=== PATIENT | female | born 1955 | race Caucasian/White ===

== ENCOUNTER 2020-06-12 14:52 | Outpatient (RCR) | payer SELFPAY ==
--- NOTE | 2020-06-18 10:45 | PCCPR ---
Addendum entered by Vaishali Salas RN 06/25/20 15:14: Message left inquiring when she may be returning or if she needs to be placed on a longer hold. Requested she give us a call and update of her progress. Original Note: Mary left message this morning stating that she fell at home over the weekend and possibly fractured her tailbone. She is trying to get in to see her physician for a diagnosis but will be out until further notice.
--- NOTE | 2020-09-13 13:03 | PCCPR ---
Message left for Mary inquiring on her progress and update us on her plan for return.
--- NOTE | 2020-10-10 18:04 | PCCPR ---
Spoke with Mary who states that her tailbone is much better, her shoulder is still sore. She is more worried about getting in here with the weather and the use of her walker. She also stated that she got her first COVID vaccine and gets the second one mid October. She stated she would like to wait until Mid/end October to start. Will continue to follow and asked her to update us with any changes.
--- NOTE | 2020-11-14 15:48 | PCCPR ---
Spoke with Miley today, she was waiting for warmer weather and the covid vaccine to return. Miley stated that she will have the second covid vaccine next week and then would like to wait two weeks after that before she returns. Miley plans to return December 10 and will call the week before for a class time.
--- NOTE | 2021-01-31 10:42 | PCCPR ---
GEORGE diaz for Miley confirming her plan to attend the 1630 class today. On several month CARLOS.
--- NOTE | 2021-02-04 18:24 | PCCPR ---
Addendum entered by Lurdes Bhatti RN 02/08/21 10:01: LM on Mary's VM we are discharging her due to inability to reach her. several previous messages left. Addendum entered by Leann Cannon 02/06/21 17:14: Pt LMOR after hours from Melissa's call- I attempted to call her back and LM. Will continue with plan to DC at the end of the week. Original Note: Mary was supposed to return on 01/31 but did not. Called her today and left message to return our call. Mary's chart has been active for months and she has delayed the program several times for different reasons. Message left notifying her that she will be discharged by the end of the week if she does not return.
== END 2020-06-12 23:59 | disposition home or self-care (01) ==
LOC: ANHCPREHAB 14:52
PROVIDERS: PCP Internal Medicine; Visit Provider Internal Medicine Cardiovascular Disease
DX: I50.9 Heart failure, unspecified (principal)
CPT/HCPCS: 99199

== ENCOUNTER 2022-07-01 15:37 | Outpatient (CLI) | payer MEDICARE, SELFPAY ==
[2022-07-02 08:42] LABS: Kit Draw Collected
== END 2022-07-01 15:38 | disposition home or self-care (01) ==
PROVIDERS: PCP Internal Medicine; Visit Provider Internal Medicine
DX: D64.9 Anemia, unspecified (principal); E11.9 Type 2 diabetes mellitus without complications; Z53.8 Procedure and treatment not carried out for other reasons
CPT/HCPCS: 99199; 36415

== ENCOUNTER 2024-03-22 14:35 | Outpatient (CLI) | payer MEDICARE, SELFPAY ==
[2024-03-22 15:50] LABS: Basophils Percent Auto 0.4 % (0.2-1.2); Eosinophils Absolute Auto 0.2 K/mm3 (0-0.3); Eosinophils Percent Auto 1.9 % (0-4.4); Hemoglobin 9.8 g/dL (12.0-15.0); Immature Granulocyte Absolute 0.04 K/mm3 (0.00-0.031); Immature Granulocyte Percent A 0.5 % (0-0.5); Lymphocytes Absolute Auto 0.82 K/mm3 (0.9-3.2); Lymphocytes Percent Auto 10.6 % (18.3-44.2); Mean Corpuscular HGB Conc 28.8 g/dl (32-36); Mean Corpuscular Hemoglobin 24.2 pg (26-34); Mean Platelet Volume 10.5 fl (7.4-10.4); Monocytes Absolute Auto 1.1 K/mm3 (0.1-0.6); Monocytes Percent Auto 13.7 % (2.6-8.5); Neutrophils Absolute Auto 5.6 K/mm3 (1.3-6.7); Neutrophils Percent Auto 72.9 % (45.5-73.1); Platelet Count Result 242 k/mm3 (150-375); Red Blood Count 4.05 M/mm3 (4.2-5.4); Red Cell Distribution Width 17.1 % (11.5-14.5); White Blood Count 7.7 K/mm3 (4.5-10.0)
[2024-03-22 16:14] LABS: Anisocytosis 1+; Hypochromasia 1+; Ovalocytes 1+; Platelet Estimate Adequate (Adequate); Poikilocytosis 1+; Schistocytes None Seen; Target Cells 1+
[2024-03-22 16:22] LABS: Alanine Aminotransferase 11 U/L (6-35); Albumin Level 4.1 g/dL (3.5-5.1); Alkaline Phosphatase 69 U/L (38-126); Anion Gap 11 mmol/L (4-12); Aspartate Amino Transferase 36 U/L (14-36); Bilirubin,Total 1.6 mg/dL (0.2-1.3); Blood Urea Nitrogen 20 mg/dL (7-17); Calcium 9.7 mg/dL (8.4-10.2); Carbon Dioxide 28 mmol/L (22-30); Chloride 100 mmol/L (98-107); Estimated Glomerular Filt Rate 55; Glucose 101 mg/dL (65-110); Potassium 4.5 mmol/L (3.4-5.0); Sodium 139 mmol/L (137-145)
[2024-03-22 18:32] LABS: Creatinine Urine 96.1 mg/dL
[2024-03-22 18:36] LABS: Hemoglobin A1C 6.1 % (<5.7)
[2024-03-22 18:39] LABS: MALB Creatinine Ratio 157.5 mg/g (0-30); Microalbumin Urine Random 151.4 mg/L (0-16.7)
[2024-03-24 10:53] LABS: NT Pro B Type Natriuretic Pept 483 pg/mL (19.9-100)
== END 2024-03-22 14:36 | disposition home or self-care (01) ==
PROVIDERS: PCP Internal Medicine; Visit Provider Internal Medicine
DX: D64.9 Anemia, unspecified (principal); E11.319 Type 2 diabetes mellitus with unspecified diabetic retinopathy without macular edema; R06.00 Dyspnea, unspecified; Z79.4 Long term (current) use of insulin; R25.2 Cramp and spasm; R53.83 Other fatigue; I10 Essential (primary) hypertension
CPT/HCPCS: 36415; 80053; 82043; 82728; 83036; 83735; 83880; 84443; 85025

== ENCOUNTER 2024-03-22 14:53 | Outpatient (CLI) | payer MEDICARE, SELFPAY ==
--- NOTE | ~2024-03-22 | XR_ITS ---
XR chest 2V 03/22/2024 15:12 Indication: Dyspnea Procedure: PA and lateral views the chest Comparison: 07/08/2009 Findings: Status post median sternotomy for CABG. There is bilateral airspace disease, right greater than left. Moderate right pleural effusion. Status post median sternotomy for CABG. No acute osseous abnormality. Impression: 1: Extensive bilateral airspace disease, right greater than left. Differential diagnosis includes pne umonia and edema. 2: Moderate right pleural effusion. 3: Cardiomegaly. Reviewed, dictated and finalized at location B. Impression: 1: Extensive bilateral airspace disease, right greater than left. Differential diagnosis includes pneumonia and edema. 2: Moderate right pleural effusion. 3: Cardiomegaly.
== END 2024-03-22 14:54 ==
LOC: GOSHIMG 14:56
PROVIDERS: PCP Internal Medicine; Visit Provider Internal Medicine
DX: R06.00 Dyspnea, unspecified (principal); J90 Pleural effusion, not elsewhere classified; R91.8 Other nonspecific abnormal finding of lung field; I51.7 Cardiomegaly
CPT/HCPCS: 71046

== ENCOUNTER 2024-03-27 13:10 | Outpatient (CLI) | payer MEDICARE, SELFPAY ==
--- NOTE | ~2024-03-27 | CT_ITS ---
CT diagnostic chest wo con Ordering provider: Jaime Givens DO History: 68 years Female with . J90 - Pleural effusion, not elsewhere classified . Comparison: None. Technique: CT chest without IV contrast. Radiation reduction technique utilized. DLP is 865.59 mGy-cm. FINDINGS: VISUALIZED THORACIC INLET: Normal. Left axillary lymph nodes are noted with the largest measuring 1.8 cm. MEDIASTINUM: Aorta/coronary arteries: Mild atheromatous disease. Heart/other: The heart is slightly enlarged. Lymph nodes: No mediastinal or hilar adenopathy. Paratracheal lymph nodes are seen with the largest m easuring 1.7 cm. Prevascular lymph nodes are noted with the largest measuring 1.8 cm. LUNGS: Large right pleural effusion with atelectatic changes in the right lower lobe versus pneumonia . No pulmonary nodules or masses. No infiltrates or effusions. No pneumothorax. VISUALIZED UPPER ABDOMEN: Cholelithiasis. Otherwise, the visualized upper abdomen is normal. MUSCULOSKELETAL: Soft tissues: The superficial soft tissues are normal. Bones: Age appropriate degenerative changes of the spine. Postoperative changes in the sternum. IMPRESSION: 1. Large right pleural effusion with adjacent atelectasis versus pneumonia in the right lower lobe. 2. Cholelithiasis. Reviewed, dictated and finalized at location A.
== END 2024-03-27 13:11 | disposition home or self-care (01) ==
LOC: ANHIMG 13:11
PROVIDERS: PCP Internal Medicine; Visit Provider Internal Medicine
DX: J90 Pleural effusion, not elsewhere classified (principal); K80.20 Calculus of gallbladder without cholecystitis without obstruction; R91.8 Other nonspecific abnormal finding of lung field
CPT/HCPCS: 71250

== ENCOUNTER 2024-03-31 07:25 | Outpatient (CLI) | payer MEDICARE, SELFPAY ==
[2024-03-29 09:25] VITALS: BMI 52.6
--- NOTE | 2024-03-29 09:27 | PC.NURSE ---
Pre Radiology instructions Report to the outpatient isai guerrero on date _[id number]_ at time _0730_ for procedure Time: _30_ YOU MAY BE MONITORED AT HOSPITAL FOR UP TO 4 HOURS AFTER YOUR PROCEDURE. A visitor will be allowed to accompany the patient into the hospital. You and your visitor will be asked to self-screen and do not enter if you have any COVID symptoms. A mask is OPTIONAL within the hospital. Patients are to have no food or drink 6 hours prior to procedure time Driving will be restricted after the procedure, you must have a person to drive you home. Labs will be drawn in preop area and once reviewed, you will be taken to radiology area for procedure. When the procedure is completed, you will be taken to outpatient where you will be monitored for several hours. You may have one visitor in this area. Other than holding anti-coagulants, patient may take other medication(s) as scheduled. Prior to your appointment date patients are instructed to hold anti-coagulants after discussing with ordering provider to stop. If unable to discontinue anti-coagulants please notify radiologist. ? No aspirin or warfarin (Coumadin) for 7 days prior to the procedure. ? No clopidogrel (Plavix), ticagrelor (Brilinta), prasugrel (Effient) or dabigatran (Pradaxa) for 5 days prior to the procedure. ? No rivaroxaban (Xarelto), apixaban (Eliquis), dipyridamole (Aggrenox or Persantine) or cilostazol (Pletal) for 2 days prior to the procedure. Medications to discontinue per physician: Date to take last dose: Please leave all valuables, including medications, at home the day of procedure. The hospital will not accept responsibility for valuables. Wear comfortable, loose fitting clothing.? Follow any additional instructions given to you from ordering provider. Telephone instructions given to ____Mindy and asked if any additional questions and then verbalized understanding. Patient advised to call scheduling provider office or registration scheduling [phone] if any additional questions.
--- NOTE | ~2024-03-31 | XR_ITS ---
CORRECTED REPORT corrected patients age in History section [facility] 03/31/2024 This report was recreated on 03/31/2024. Original report was [id number] Ordering provider: Kris Julio DO History: 68 years Female with . pleural effusion . Comparison: None. FINDINGS: MEDIASTINUM: The cardiac silhouette is slightly enlarged. Postoperative changes in the mediastinum. Congestive alejandrina. LUNGS: No pneumothorax. Opacification the right lower lobe with right pleural effusion. Bilateral interstitial changes. OTHER: No free air under the diaphragm. Degenerative changes of the spine. IMPRESSION: Right lower lobe pneumonia with pleural effusion. Bilateral interstitial changes suggestive of pulmonary edema versus pneumonitis. Reviewed, dictated and finalized at location A. MTDD IMPRESSION: Right lower lobe pneumonia with pleural effusion. Bilateral interstitial change s suggestive of pulmonary edema versus pneumonitis.
--- NOTE | ~2024-03-31 | US_ITS ---
EXAMINATION: US thoracentesis DATE: 03/31/2024 10:47 INDICATION: pleural effusion TECHNIQUE: The procedure and its risks, benefits, and alternatives were discussed with the patient. P otential risks discussed included bleeding, infection, and pneumothorax. The patient understood the r isks and agreed to proceed. The skin was prepped and draped in sterile fashion. 1% lidocaine was used for local anesthesia. Under ultrasound guidance, a 5 Fr catheter with trochar was advanced into the right pleural effusion. Fluid was aspirated. The catheter was removed, and a dressing was applied. Th ere were no immediate complications. FINDINGS: Ultrasound images demonstrate a right pleural effusion and the catheter within the fluid. IMPRESSION: 1. Successful ultrasound-guided thoracentesis yielding 1000 mL of kate-colored fluid. Reviewed, dictated and finalized at location A. IMPRESSION: 1. Successful ultrasound-guided thoracentesis yielding 1000 mL of kate-colore d fluid.
[2024-03-31 07:43] VITALS: BP 139/73; PULSE 91; RESP 18; TEMP 36.7; O2SAT 91
[2024-03-31 08:23] LABS: INR 1.3; Prothrombin Time 16.5 Seconds (11.1-14.7)
[2024-03-31 10:10] VITALS: BP 137/47; PULSE 75; RESP 16; O2SAT 93
--- NOTE | 2024-03-31 10:20 | SUR.PHASEII ---
SATS 87% - 92%. DR. DESIR CALLED RE: CXR ORDER AND IF PATIENT NEEDS TO PLACED ON OXYGEN. DR. DESIR WILL PLACE CXR ORDER AND STATES PATIENT DOESN'T NEED TO BE ON OXYGEN LONG SHE DOESN'T HAVE SHORTNESS OF BREATH.
[2024-03-31 10:25] VITALS: BP 138/60; PULSE 75; RESP 16; O2SAT 91
[2024-03-31 10:40] VITALS: BP 135/60; PULSE 74; RESP 16; O2SAT 87
[2024-03-31 10:55] VITALS: BP 135/61; PULSE 74; RESP 16; O2SAT 87
[2024-03-31 10:56] LABS: pH Pleural Fluid > 7.500 (7.210-7.500)
[2024-03-31 11:25] VITALS: BP 108/47; PULSE 73; RESP 16; O2SAT 90
--- NOTE | 2024-03-31 11:30 | SUR.PHASEII ---
DR. DESIR SAID PATIENT CAN GO HOME AT 1210.
[2024-03-31 11:50] LABS: Appearance Pleural Fluid Hazy (Clear); Color Pleural Fluid Yellow (Colorless); Lymphocytes Pleural Fluid 65 %; Neutrophils Pleural Fluid 1 % (0-25); Nucleated Cell Pleural Fluid 215 /uL (0-1000); Pleural fluid source Pleural fluid; RBC Pleural Fluid 8000 /uL (0-10000)
[2024-03-31 11:51] LABS: Macrophages Pleural Fluid 25 %; Monocytes Pleural Fluid 9 %
[2024-04-14 21:09] LABS: Glucose Pleural Fluid <10 mg/dL; LDH Pleural Fluid 141 U/L; Total Protein Pleural Fluid <3.0 g/dL
== END 2024-03-31 12:05 | disposition home or self-care (01) ==
PROVIDERS: PCP Internal Medicine; Referring Provider Internal Medicine; Visit Provider Radiology Diagnostic Radiology
DX: J90 Pleural effusion, not elsewhere classified (principal); R06.09 Other forms of dyspnea
CPT/HCPCS: 32555; 36415; 82945; 83615; 83986; 84157; 84311; 85610; 89051

== ENCOUNTER 2024-04-27 15:57 | Outpatient (CLI) | payer MEDICARE, SELFPAY ==
--- NOTE | ~2024-04-27 | XR_ITS ---
EXAMINATION: XR chest 2V DATE: 04/27/2024 16:12 INDICATION: Shortest of breath. TECHNIQUE: Frontal and lateral views of the chest were obtained. COMPARISON: Chest single view 03/31/2024, chest CT 03/19/2024 FINDINGS: There is a moderate-sized loculated right pleural effusion. There are airspace opacities in all right lung zones with a lower lung predominance. No pneumothorax. Cardiomegaly is noted. Median sternotomy wires are noted. IMPRESSION: 1. Stable moderate-sized loculated right pleural effusion. 2. Stable airspace opacities in right lung, likely rounded atelectasis. 3. Cardiomegaly. Reviewed, dictated and finalized at location A.
== END 2024-04-27 15:58 ==
LOC: GOSHIMG 15:59
PROVIDERS: PCP Internal Medicine; Visit Provider Internal Medicine Cardiovascular Disease
DX: I42.8 Other cardiomyopathies (principal); I50.32 Chronic diastolic (congestive) heart failure; I51.7 Cardiomegaly; J90 Pleural effusion, not elsewhere classified; R91.8 Other nonspecific abnormal finding of lung field
CPT/HCPCS: 71046

== ENCOUNTER 2024-06-20 17:27 | Outpatient (CLI) | payer MEDICARE, SELFPAY ==
[2024-06-20 18:10] LABS: Basophils Percent Auto 0.6 % (0.2-1.2); Eosinophils Absolute Auto 0.1 K/mm3 (0-0.3); Eosinophils Percent Auto 2.7 % (0-4.4); Hematocrit 31.8 % (37.0-47.0); Hemoglobin 9.1 g/dL (12.0-15.0); Immature Granulocyte Absolute 0.03 K/mm3 (0.00-0.031); Immature Granulocyte Percent A 0.6 % (0-0.5); Lymphocytes Absolute Auto 0.68 K/mm3 (0.9-3.2); Lymphocytes Percent Auto 13.9 % (18.3-44.2); Mean Corpuscular HGB Conc 28.6 g/dl (32-36); Mean Corpuscular Hemoglobin 26.5 pg (26-34); Mean Corpuscular Volume 92.7 fl (80-100); Mean Platelet Volume 9.8 fl (7.4-10.4); Monocytes Absolute Auto 0.7 K/mm3 (0.1-0.6); Monocytes Percent Auto 14.1 % (2.6-8.5); Neutrophils Absolute Auto 3.3 K/mm3 (1.3-6.7); Neutrophils Percent Auto 68.1 % (45.5-73.1); Platelet Count Result 277 k/mm3 (150-375); Red Blood Count 3.43 M/mm3 (4.2-5.4); Red Cell Distribution Width 23.9 % (11.5-14.5); White Blood Count 4.9 K/mm3 (4.5-10.0)
[2024-06-20 18:28] LABS: Alanine Aminotransferase 10 U/L (6-35); Albumin Level 3.9 g/dL (3.5-5.1); Alkaline Phosphatase 78 U/L (38-126); Anion Gap 7 mmol/L (4-12); Aspartate Amino Transferase 19 U/L (14-36); Bilirubin,Total 1.1 mg/dL (0.2-1.3); Blood Urea Nitrogen 15 mg/dL (7-17); Calcium 9.6 mg/dL (8.4-10.2); Carbon Dioxide 31 mmol/L (22-30); Chloride 103 mmol/L (98-107); Estimated Glomerular Filt Rate > 60; Glucose 85 mg/dL (65-110); Potassium 3.7 mmol/L (3.4-5.0); Sodium 141 mmol/L (137-145)
[2024-06-20 18:30] LABS: Anion Gap 7 mmol/L (4-12); Blood Urea Nitrogen 15 mg/dL (7-17); Calcium 9.6 mg/dL (8.4-10.2); Carbon Dioxide 31 mmol/L (22-30); Chloride 102 mmol/L (98-107); Estimated Glomerular Filt Rate > 60; Glucose 85 mg/dL (65-110); Potassium 3.6 mmol/L (3.4-5.0); Sodium 140 mmol/L (137-145)
[2024-06-20 18:33] LABS: Anisocytosis 1+; Hypochromasia 1+; Ovalocytes 1+; Platelet Estimate Adequate (Adequate); Schistocytes None Seen
== END 2024-06-20 17:28 | disposition home or self-care (01) ==
PROVIDERS: PCP Internal Medicine; Referring Provider Internal Medicine; Visit Provider Internal Medicine Cardiovascular Disease
DX: D50.9 Iron deficiency anemia, unspecified (principal); D64.9 Anemia, unspecified; N18.9 Chronic kidney disease, unspecified; I50.32 Chronic diastolic (congestive) heart failure
CPT/HCPCS: 36415; 80048; 80053; 82728; 85025

== ENCOUNTER 2024-08-02 15:41 | Outpatient (CLI) | payer MEDICARE, SELFPAY ==
[2024-08-02 19:53] LABS: Basophils Percent Auto 0.5 % (0.2-1.2); Eosinophils Absolute Auto 0.1 K/mm3 (0-0.3); Eosinophils Percent Auto 1.7 % (0-4.4); Immature Granulocyte Absolute 0.01 K/mm3 (0.00-0.031); Immature Granulocyte Percent A 0.2 % (0-0.5); Lymphocytes Absolute Auto 0.64 K/mm3 (0.9-3.2); Lymphocytes Percent Auto 11.1 % (18.3-44.2); Mean Corpuscular HGB Conc 28.6 g/dl (32-36); Mean Corpuscular Hemoglobin 25.6 pg (26-34); Mean Corpuscular Volume 89.5 fl (80-100); Mean Platelet Volume 10.2 fl (7.4-10.4); Monocytes Absolute Auto 0.8 K/mm3 (0.1-0.6); Monocytes Percent Auto 13.8 % (2.6-8.5); Neutrophils Absolute Auto 4.2 K/mm3 (1.3-6.7); Neutrophils Percent Auto 72.7 % (45.5-73.1); Platelet Count Result 228 k/mm3 (150-375); Red Blood Count 3.91 M/mm3 (4.2-5.4); Red Cell Distribution Width 18.2 % (11.5-14.5); White Blood Count 5.8 K/mm3 (4.5-10.0)
[2024-08-02 20:32] LABS: Hypochromasia 1+; Ovalocytes 1+; Platelet Estimate Adequate (Adequate); Schistocytes None Seen
[2024-08-02 21:30] LABS: Hemoglobin A1C 5.3 % (<5.7)
== END 2024-08-02 15:42 | disposition home or self-care (01) ==
LOC: ANHGOSHLAB 15:43
PROVIDERS: PCP Internal Medicine; Visit Provider Internal Medicine
DX: D50.9 Iron deficiency anemia, unspecified (principal); E11.9 Type 2 diabetes mellitus without complications; Z79.4 Long term (current) use of insulin; E11.319 Type 2 diabetes mellitus with unspecified diabetic retinopathy without macular edema
CPT/HCPCS: 36415; 82728; 83036; 85025

== ENCOUNTER 2024-08-02 15:52 | Outpatient (CLI) | payer MEDICARE, SELFPAY ==
--- NOTE | ~2024-08-02 | XR_ITS ---
Clinical Indication: Shortness of breath PA and lateral views of the chest: Comparison: 04/27/2024 Findings: Stable moderate right pleural effusion with probable right basilar atelectasis/edema. Left lung clear.. Cardiomediastinal silhouette is stable. Bones and soft tissues are unremarkable. Impression: Stable moderate right pleural effusion with probable right basilar pulmonary edema/atelectasis. Reviewed, dictated and finalized at location . E EPIDEMIOLOGIST Impression: Stable moderate right pleural effusion with probable right basilar pulmonary ed dia/atelectasis.
== END 2024-08-02 15:53 | disposition home or self-care (01) ==
LOC: GOSHIMG 15:55
PROVIDERS: PCP Internal Medicine; Visit Provider Internal Medicine Cardiovascular Disease
DX: I50.32 Chronic diastolic (congestive) heart failure (principal); J90 Pleural effusion, not elsewhere classified
CPT/HCPCS: 71046

== ENCOUNTER 2024-09-20 16:01 | Outpatient (CLI) | payer MEDICARE, SELFPAY ==
--- NOTE | ~2024-09-20 | XR_ITS ---
CHEST RADIOGRAPH, PA AND LATERAL CLINICAL HISTORY: PLEURAL EFFUSION . COMPARISON: 08/02/2024 TECHNIQUE: PA and lateral views of the chest. FINDINGS Sternal wires and mediastinal clips are identified, the wires are midline and intact. The remainder of the cardiomediastinal silhouette is otherwise unremarkable. Redemonstration of a large right-sided pleural effusion, unchanged from prior Visualized osseous structures and soft tissues are unremarkable. IMPRESSION: Large right-sided pleural effusion, unchanged from prior Reviewed, dictated and finalized at location A. LAYER HAND
== END 2024-09-20 16:02 | disposition home or self-care (01) ==
LOC: GOSHIMG 16:02
PROVIDERS: PCP Internal Medicine Cardiovascular Disease; Visit Provider Internal Medicine Cardiovascular Disease
DX: I50.30 Unspecified diastolic (congestive) heart failure (principal); J90 Pleural effusion, not elsewhere classified
CPT/HCPCS: 71046

== ENCOUNTER 2024-09-21 15:40 | Outpatient (CLI) | payer MEDICARE, SELFPAY ==
[2024-09-21 19:31] LABS: Basophils Percent Auto 0.6 % (0.2-1.2); Eosinophils Absolute Auto 0.2 K/mm3 (0-0.3); Eosinophils Percent Auto 4.3 % (0-4.4); Hematocrit 38.7 % (37.0-47.0); Hemoglobin 11.5 g/dL (12.0-15.0); Immature Granulocyte Absolute 0.01 K/mm3 (0.00-0.031); Immature Granulocyte Percent A 0.2 % (0-0.5); Lymphocytes Absolute Auto 0.66 K/mm3 (0.9-3.2); Mean Corpuscular HGB Conc 29.7 g/dl (32-36); Mean Corpuscular Hemoglobin 27.1 pg (26-34); Mean Corpuscular Volume 91.3 fl (80-100); Mean Platelet Volume 11.4 fl (7.4-10.4); Monocytes Absolute Auto 0.8 K/mm3 (0.1-0.6); Monocytes Percent Auto 16.6 % (2.6-8.5); Neutrophils Absolute Auto 3.3 K/mm3 (1.3-6.7); Neutrophils Percent Auto 65.3 % (45.5-73.1); Platelet Count Result 205 k/mm3 (150-375); Red Blood Count 4.24 M/mm3 (4.2-5.4); Red Cell Distribution Width 19.2 % (11.5-14.5); White Blood Count 5.1 K/mm3 (4.5-10.0)
[2024-09-21 20:02] LABS: Large Platelets Present; Platelet Estimate Adequate (Adequate)
[2024-09-21 20:03] LABS: Ovalocytes 1+; Schistocytes None Seen
[2024-09-21 20:36] LABS: Alanine Aminotransferase 9 U/L (6-35); Albumin Level 3.9 g/dL (3.5-5.1); Alkaline Phosphatase 78 U/L (38-126); Anion Gap 9 mmol/L (4-12); Aspartate Amino Transferase 19 U/L (14-36); Bilirubin,Total 1.9 mg/dL (0.2-1.3); Blood Urea Nitrogen 14 mg/dL (7-17); Calcium 9.5 mg/dL (8.4-10.2); Carbon Dioxide 31 mmol/L (22-30); Chloride 101 mmol/L (98-107); Estimated Glomerular Filt Rate > 60; Glucose 73 mg/dL (65-110); Potassium 3.9 mmol/L (3.4-5.0); Sodium 141 mmol/L (137-145)
--- OUTSIDE RECORDS SUMMARY | 2024-09-23 03:03 | XMS_ITS | Encounter Summary ---
Author Organization [facility] Address [address] [place] [address] Care Team Providers Care Chemical Economist Name Role Phone Jaime Givens DO Primary Care Provider Encounter Details Date Type Department Care Team (Late st Contact Info) Description 11/06/2017 Lab Requisition [facility] [address] [place] [address] Last Velásquez MD [address] [place] [address] Essential (primary) hypertension Social History Tobacco Use Types Packs/Day Years Used Date Smoking Tobacco: Former Cigarettes Q uit: 08/31/1986 Smokeless Tobacco: Former Alcohol Use Standard Drinks/Week Comments No 0 (1 standard drink = 0.6 oz pur e alcohol) Comments No Sex and Gender Information Value Date Recorded Sex Assigned at Not on file Legal Sex Female 3:21 AM 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 SPECIAL AGENT Gender Identity Not on file Sexual Orientation Not on file Occupation Industry Job Start Date Job End Date Not on file Not on file Not on file Not on file documented as of this encounter Plan of Treatment Not on file documented as of this encounter Visit Diagnoses Diagnosis Essential (primary) hypertension Unspecified essential hypertension documented in this encounter Care Teams Chemical Economist Relationship Specialty Start Date End Date Jaime Givens DO [address] [place] [address] PCP - General Internal Medicine 06/14/18 documented as of this encounter
--- OUTSIDE RECORDS SUMMARY | 2024-09-23 03:03 | XMS_ITS | Encounter Summary ---
Author Organization [facility] Address [address] [place] [address] Phone Care Team Providers Care Ceramic Mold Designer Name Role Phone Jaime Givens DO Primary Care Provider + [phone] Thad Arredondo MD Unavailable [phone] Michi De La Paz MD PhD Unavailable [phone] Bebeto Murillo MD Unavailable [phone] Daija Smart DO Unavailable [phone] Michelle Sherman PROJECT MANAGEMENT INSTRUCTOR Unavailable [phone] Amelia Garner PROJECT MANAGEMENT INSTRUCTOR Unavailable [phone] Reason for Visit * Reason Onset Date Comments over due echo 09/20/2024 Encounter Details Date Type Department Care Team (Late st Contact Info) Description 09/20/2024 Telephone [facility] Cardiology [address]th [place] [address] [place] [address] Bebeto Murillo MD [address] [facility] [address] [place] [id number] over due echo Social History Tobacco Use Types Packs/Day Years Used Date Smoking Tobacco: Former Smokeless Tobacco: Never Comments:quit 1986 Alcohol Use Standard Drinks/Week Comments No 0 (1 standard drink = 0.6 oz pur e alcohol) [facility] Utilities Answer Date Recorded In the past 12 months has e electric, gas, oil, or water company threatened to shut off services in your home? No 06/03/2024 Social Connection and Isolat ion Panel [NHANES] Answer Date Recorded In a typical week, how many times do you talk on the phone with family, friends, or neighbors? More than three times a week 06/03/2024 How often do you get togethe r with friends or relatives? Twice a week 06/03/2024 How often do you attend chur ch or amish services? 1 to 4 times per year 06/03/2024 Do you belong to any clubs o r organizations such as gnosticism groups, unions, fraternal or athletic groups, or school groups? Yes 06/03/2024 How often do you attend meet ings of the clubs or organizations you belong to? More than 4 times per year 06/03/2024 Are you , , di vorced, , never , or living with a partner? Never 06/03/2024 AUDIT-C Answer Date Recorded Q1: How often do you have a drink containing alcohol? Never 05/31/2024 Q2: How many drinks containi ng alcohol do you have on a typical day when you are drinking? Patient does not drink Q3: How often do you have si x or more drinks on one occasion? Never 05/31/2024 Overall Financial Resource Strain (CARDIA) Answe r Date Recorded How hard is it for you to pa y for the very basics like food, housing, medical care, and heating? Not hard at all 06/03/2024 PHQ-2 Answer Date Recorded PHQ-2 Total Score 0 06/02/2024 Hunger Vital Sign Answer Date Recorded Within the past 12 months, y ou worried that your food would run out before you got the money to buy more. Never true 06/03/20 24 Within the past 12 months, t he food you bought just didn't last and you didn't have money to get more. Never true 06/03/2024 PRAPARE - Transportation Answer Date Re corded In the past 12 months, has l ack of transportation kept you from medical appointments or from getting medications? No 11/2023 In the past 12 months, has l ack of transportation kept you from meetings, work, or from getting things needed for daily living? Yes 06/03/2024 Housing Stability Vital Sign Answer Stephen e Recorded In the last 12 months, was t here a time when you were not able to pay the mortgage or rent on time? No 06/03/2024 In the past 12 months, how m any times have you moved where you were living? 0 06/03/2024 At any time in the past 12 m [place], were you homeless or living in a senior living (including now)? No 06/03/2024 Personal Safety Answer Date Recorded Have you ever been in or are you currently in a harmful physical or emotional relationship or is someone making you feel afraid or unsafe? Denies 05/31/2024 Comments No Sex and Gender Information Value Date Recorded Sex Assigned at Not on file Legal Sex Female 1:11 AM SHIPPING MANAGER Gender Identity Not on file Sexual Orientation Not on file Occupation Industry Job Start Date Job End Date Retired Not on file Not on file Not on file documented as of this encounter Miscellaneous Notes * Telephone Encounter - Martita Munoz RN - 09/21/2024 3:55 PM CST I lmor for pt requesting cb. I also responded to portal. PING MANAGER * Telephone Encounter - Michelle Marx - 09/21/2024 3:00 PM CST Chidi Pt returning call PING MANAGER * Telephone Encounter - Martita Munoz RN - 09/21/2024 1:45 PM CST See portal. CXR done today and received. Reviewed per Dr. Murillo. See results. PING MANAGER * Telephone Encounter - Suzan Troy RN - 09/20/2024 12:30 PM SHIPPING MANAGER LMOR for pt call back see also portal message sent PING MANAGER * Telephone Encounter - Bebeto Murillo MD - 09/20/2024 11:56 AM SHIPPING MANAGER She should have a follow up chest xray and appt PING MANAGER * Telephone Encounter - Suzan Troy RN - 09/20/2024 11:34 AM SHIPPING MANAGER Received overdue echo order placed 06/22/2024 - scheduled on 07/19 and cancelled Had echo on 04/11/2024 Tele med 07/26/2024 - chest x ray 08/02/2024 stable moderate pleural effusion No follow up scheduled with DR Avila Will arrange follow up , any imaging required? PING MANAGER PING MANAGER documented in this encounter Plan of Treatment Not on file documented as of this encounter Visit Diagnoses Not on filedocumented in this encounter Care Teams Ceramic Mold Designer Relationship Specialty Start Date End Date Jaime Givens DO PCP - General 10/13/16 Thad Arredondo MD Consulting Physician Cardiology 05/14/18 Michi De La Pza MD PhD Referring Physician Cardiology 05/14/18 Bebeto Murillo MD Referring Physician Cardiology 09/09/19 Daija Smart DO [address] [place] [address] Um Nurse Obstetrics and Gynecology 09/04/23 Michelle Sherman NP [address] [place] [address] Nurse Practitioner Obstetrics and Gynecology 12/22/23 Amelia Garner NP [address] [facility] [place] [address] Nurse Practitioner Obstetrics and Gynecology 06/27/24 documented as of this encounter
--- OUTSIDE RECORDS SUMMARY | 2024-09-23 03:03 | XMS_ITS | Patient Health Record ---
Author Organization [employer] [facility] Address [address] [facility]. 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 Role Phone Jaime Givens DO Primary Care Provider Aliyah gottlieb Allergies Allergen (clinical drug ingredient) Drug/Non Drug Allergy documented on EMR Reaction Allergy Type Onset Date Status Phenylpropanolamine HCl Unknown Drug Allergy Active flecainide Flecainide Unknown Drug Allergy Activ e pseudoephedrine Pseudoephedrine Unknown Drug Allergy Active rofecoxib Rofecoxib Unknown Drug Allergy Active triprolidine Triprolidine Unknown Drug Allergy A ctive clindamycin Clindamycin Unknown Drug Allergy Act polly doxycycline Doxycycline Unknown Drug Allergy Act polly metoprolol Metoprolol Unknown Drug Allergy Activ e Reason For Referral No Information Medications Medication SIG (Take, Route, Frequency, Duration) Notes Start Date End Date Status Xifaxan 550 MG 1 tablet Orally Thre e times a day for 14 days 08/06/2021 Active Dicyclomine HCl 20 MG 1 tablet Orally Th ree times a day PRN for 30 day(s) 07/23/2021 Active OTC/Vitamins Flonase Active Lomotil prn Active Compazine Active Spironolactone Activ e Acyclovir Active amLODIPine Besylate Active Lasix Active Erythromycin 50 MG 1 by mouth at bedtim e for 30 days 07/24/2021 Active NovoLOG Active Atrantil - 2 tablets PO TID for 10 days 07/24/2021 Active Tresiba Active Neomycin Sulfate 500 MG 1 tablet Orally bid for 10 day(s) 07/24/2021 Active metFORMIN HCl Active Social History Tobacco Use: Social History Observation Description Date Details (start date - stop date) Never Smoker NA - NA Tobacco Use/Smoking Question Answer Notes Are you a nonsmoker Problems Problem Type SNOMED Code ICD Code Onset Dates Problem Status W/U Status Risk Notes Problem Family history of polyp of colon (715946568) Family history of colonic polyps (Z83.71) Active confirmed She has a family history of colon polyps in her mother. Her last colonoscopy in July 2019 was normal and she was advised to follow-up in 5 years. Problem 38232151 Diarrhea (R19.7) Active confirmed She has been having recurrent episodes of explosive diarrhea, violent vomiting, and malodorous gas. Symptoms are similar to when she was positive for SIBO years ago and she had a good response to Xifaxan. These episodes have been occurring monthly since February. She has not been able to identify any specific triggers. When she is having an episode, she will have as many as 8-10 bowel movements in a day with urgency. There has not been any blood in her stool. Differential diagnosis includes SIBO, food sensitivities, celiac disease, pancreatic insufficiency, IBS, or others. 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 Problem 40605966 Fatty stool (K90.9) Active confirmed Recently, she has noticed that her stools appear to be more fatty and have been floating on top of the water. They are also vaughn in color. We'll have her submit stool tests for fecal fat and pancreatic elastase. Plan Of Treatment Pending Test Test Name Order Date PANCREATIC [id number] 07/23/2021 FECAL FAT, QUALITATIVE 07/23/2021 LACTOFERRIN, QN, STOOL 07/23/2021 Initiate SIBO 07/23/2021 Insurance Providers Payer Name Payer Address Payer Phone Subscriber Number Group Number Insured Name Patient Relationship to Insured Coverage Start Date Coverage End Date Medicare E2 [address] [address] [place] [phone] [id number] Miley Glez Self - patient is the insured A[employer] Medicare Advantage Choice PPO [address] [address] [place] [address] [id number] Miley Glez Self - patient is the insured Medical (General) History Medical History History ICD Code Diverticulosis Diabetes Hypertension Sleep Apnea/CPAP Atrial Fibrillation Surgical History Surgery Date(Month/Year) Colonoscopy (Dr. 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
--- OUTSIDE RECORDS SUMMARY | 2024-09-23 03:03 | XMS_ITS | Encounter Summary ---
Author Organization [facility] Healthcare Address [address] [place] [address] Care Team Providers Care Fish Frog Or Oyster Farmer Name Role Phone Jaime Givens DO Primary Care Provider + [phone] Thad Arredondo MD Unavailable [phone] Michi De La Paz MD PhD Unavailable [phone] Bebeto Murillo MD Unavailable [phone] Daija Smart DO Unavailable [phone] Michelle Sherman NP Unavailable [phone] Gin Syed MD Unavailable [phone] Kavya Hall RN Unavailable [phone] Amelia Garner NP Unavailable [phone] Encounter Details Date Type Department Care Team (Late st Contact Info) Description 10/08/[address] [place] [address] Susan Leach, RT Social History Tobacco Use Types Packs/Day Years Used Date Smoking Tobacco: Former Smokeless Tobacco: Never Comments:quit 1986 Alcohol Use Standard Drinks/Week Comments No 0 (1 standard drink = 0.6 oz pur e alcohol) Comments No Sex and Gender Information Value Date Recorded Sex Assigned at Not on file 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 Gender Identity Not on file Sexual Orientation Not on file Occupation Industry Job Start Date Job End Date Retired Not on file Not on file Not on file documented as of this encounter Plan of Treatment Not on file documented as of this encounter Visit Diagnoses Not on filedocumented in this encounter Care Teams Fish Frog Or Oyster Farmer Relationship Specialty Start Date End Date Jaime Givens DO PCP - General 10/13/16 Thad Arredondo MD Consulting Physician Cardiology 05/14/18 Michi De La Paz MD PhD Referring Physician Cardiology 05/14/18 Bebeto Murillo MD Referring Physician Cardiology 09/09/19 Daija Smart DO [address] [facility] [address] [place], [place] [id number] Nba Player Obstetrics and Gynecology 09/04/23 Michelle Sherman NP [address] [place], [place] [id number] Nurse Practitioner Obstetrics and Gynecology 12/22/23 Gin Syed MD [address] [facility] [address] [place], [place] [id number] Resident Internal Medicine 05/29/24 05/30/24 Kavya Hall, RN [address] [facility] [address] [place] [address] [employer]OP Outpatient Instrumentation Chemist 06/03/24 06/28/24 Amelia Garner, TIN CONTAINER STRAIGHTENER [address] [place] [address] Nurse Practitioner Obstetrics and Gynecology 06/27/24 documented as of this encounter
--- OUTSIDE RECORDS SUMMARY | 2024-09-23 03:03 | XMS_ITS | Encounter Summary ---
Author Organization [facility] Address [address] [place] [address] Phone Care Team Providers Care Surgical Endoscopist Name Role Phone Jaime Givens DO Primary Care Provider + [phone] Thad Arredondo MD Unavailable [phone] Michi De La Paz MD PhD Unavailable [phone] Bebeto Murillo MD Unavailable [phone] Daija Smart DO Unavailable [phone] Michelle Sherman KNOWLEDGE MANAGEMENT ADVISOR Unavailable [phone] Amelia Garner NP Unavailable [phone] Encounter Details Date Type Department Care Team (Latest Contact Info) Description 09/20/2024 Orders Only [facility] Scanning, Provider Social History Tobacco Use Types Packs/Day Years Used Date Smoking Tobacco: Former Smokeless Tobacco: Never Comments:quit 1986 Alcohol Use Standard Drinks/Week Comments No 0 (1 standard drink = 0.6 oz pur e alcohol) [facility] Utilities Answer Date Recorded In the [...] often do you attend chur ch or hindu services? 1 to 4 times per year 06/03/2024 Do you belong to any clubs o r organizations such as caodaism groups, unions, fraternal or athletic groups, or [...] any time in the past 12 m [facility], were you homeless or living in a residential (including now)? No 06/03/2024 Personal Safety Answer Date Recorded Have you ever been in or are you currently in a harmful physical or emotional relationship or is someone making you feel afraid or unsafe? 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 Make appt for Thursday afternoon, after 2 pm. Can be telemedicine INUOUS IMPROVEMENT ENGINEER * Martita Munoz RN - 09/20/2024 11:59 PM CST Portal message and message sent to pt. Offered appt on Thursday at 11. Will await pt portal response. INUOUS IMPROVEMENT ENGINEER documented in this encounter Plan of Treatment Not on file documented as of this encounter Procedures Procedure Name Priority Date/Time Associated Diagnosis Comments SCAN - RADIOLOGY/IMAGING 09/20/2024 documented in this encounter Results * SCAN - RADIOLOGY/IMAGING (09/20/2024) Anatomical Region Laterality Modality Other us Provider Scanning Final Result documented in this encounter Visit Diagnoses Not on filedocumented in this encounter Care Teams Surgical Endoscopist Relationship Specialty Start Date End Date Jaime Givens DO PCP - General 10/13/16 Thad Arredondo MD Consulting Physician Cardiology 05/14/18 Michi De La Paz MD PhD Referring Physician Cardiology 05/14/18 Bebeto Murillo MD Referring Physician Cardiology 09/09/19 Daija Smart DO [address] [place] [address] Optical Element Coater Obstetrics and Gynecology 09/04/23 Michelle Sherman, AZUL [address] [place] [address] Nurse Practitioner Obstetrics and Gynecology 12/22/23 Amelia Garner NP [address] [place] [address] Nurse Practitioner Obstetrics and Gynecology 06/27/24 documented as of this encounter
--- OUTSIDE RECORDS SUMMARY | 2024-09-23 03:03 | XMS_ITS | Clinical Summary ---
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 administration -Diuretics and ACEi stopped as outpatient around 02/06 -2.4L UOP in the last 24 hours -Daily BMPs Assessment & Plan (02/10/2020 10:07 AM CDT): Renal consult appreciated. Creatinine is still rising consistent with acute renal insufficiency likely ATN from diuretics. The renal consult reported that the patient took 4 Advil tablets last week. This could have also been associated with renal insufficiency. Will hold off on the diuretics and follow very closely. Her weight is stable. Her volume status looks stable. I will plan to repeat the BMP later today. Assessment & Plan (02/09/2020 2:35 PM CDT): Progressive milton - baseline creatine 1.05-1.28 Creatine since admission progressively increasing today creatine 4.15 Currently getting IV fluids normal saline 75 mg /hr Diuretics and acei stopped as outpatient around 02/06 Currently will get bmp later this afternoon Patient having good volumes on urine output Continue to monitor. Assessment & Plan (02/08/2020 11:51 AM CDT): Progressive MILTON associated with decreased UOP and hyponatremia, likely ATN from overdiuresis as well as NSAID and Kevin-I -pt is hypovolemic on exam -recent discharge home after aggressive diuresis -appreciate renal consult -holding home atenolol, lisinopril and spironolactone -continue NS @ 75ml /hr -baseline cr~ 0.9 and was 1.2 at the time of discharge on 01/30, cr now 3.91, recheck this afternoon -Renal US without hydronephrosis - Strict I's/O's, daily weights Assessment & Plan (02/08/2020 9:26 AM CDT): Renal consult appreciated. Creatinine is still rising consistent with acute renal insufficiency likely ATN from diuretics. The renal consult reported that the patient took 4 Advil tablets last week. This could have also been associated with renal insufficiency. Will hold off on the diuretics and follow very closely. Assessment & Plan (02/07/2020 12:59 PM CDT): Progressive MILTON associated with decreased UOP and hyponatremia -pt is hypovolemic on exam -recent discharge home after aggressive diuresis -holding home atenolol, lisinopril and spironolactone -s/p 500ml LR at the time of admission -baseline cr~ 0.9 and was 1.2 at the time of discharge on 01/30, cr now 3.53 -Renal US without hydronephrosis -renal consulted - Strict I's/O's, daily weights Candidiasis of skin and nail 10/19/2017 Elevated white blood cell count, unspecified Encounter for surgical after care following surgery on the circulatory system 10/19/2017 Generalized anxiety disorder 10/19/2017 Herpesviral infection, unspecified 10/19/2017 Assessment & Plan (05/26/2024 6:37 PM CDT): Takes suppressive acyclovir, continue Type 2 diabetes mellitus without complications ( [facility]) 10/19/2017 Chronic diastolic (congestive) heart failure Assessment & Plan (02/10/2020 12:10 PM CDT): HFpEF with recurrent pleural effusions, s/p multiple thoracentesis -RHC 01/27/20 with elevated left heart filling pressures, elevated right heart filling pressures, moderate pulmonary HTN and normal cardiac output -TTE 01/18/20 with EF 72% -Hemodynamically stable, euvolemic on exam -Weight stable from yesterday, 2.4 L UOP in the last 24 hours -Holding diuretics and ACEi in the setting of MILTON -Discharged home on 02 2L NC on 01/30 -Continue SQ Heparin Q 8 hours -Keep K > 4.0 and Mg > 2.0, replete as indicated -Continue telemetry monitoring Assessment & Plan (02/10/2020 10:06 AM CDT): Patient's exam is stable. No features of volume overload at this time. Patient is making good urine output at present. He she has not required a diuretic to keep her weight is the same at present. She will require continued close observation of her weight and volume status while in hospital and at home. Repeat BMP later in the day and then further determination after that Assessment & Plan (02/09/2020 2:35 PM CDT): HFpEF with recurrent pleural effusions, s/p multiple thora and RHC last admission showing HFpEF - Holding diuretics in the setting of MILTON - Holding atenolol and lisinopril - discharged home on o2 2l per nasal cannula on 01/30 Assessment & Plan (02/08/2020 11:57 AM CDT): HFpEF with recurrent pleural effusions, s/p multiple thora and RHC last admission showing HFpEF - Holding diuretics in the setting of MILTON - Holding atenolol and lisinopril - discharged home on o2 2l per nasal cannula on 01/30 Assessment & Plan (02/08/2020 9:25 AM CDT): Patient's exam is stable. No features of volume overload at this time. She has gained but weight is unchanged compared to admission. The variability of weight is not yet explained. She has been off diuretics for several days but has worsening creatinine consistent with acute renal failure. She will require diuretics or will develop recurrent heart failure. She had very high filling pressures despite diuretics last week. Assessment & Plan (02/07/2020 12:49 PM CDT): HFpEF with recurrent pleural effusions, s/p multiple thora and RHC last admission showing likely HFpEF. Clinically volume down. - Holding diuretics in the setting of MILTON - Holding atenolol Venous insufficiency (chronic) (peripheral) 10/01 Abnormal EKG 09/01/2017 History of cardioversion 08/20/2017 Morbid obesity 07/31/2017 Assessment & Plan (02/10/2020 12:02 PM CDT): BMI 42.89 -Continue to encourage weight loss Assessment & Plan (02/09/2020 2:30 PM CDT): -continue to encourage weight loss bmi 42.9 Encourage patient to ambulate in halls Assessment & Plan (02/08/2020 11:54 AM CDT): -continue to encourage weight loss -PT/OT Assessment & Plan (02/07/2020 1:04 PM CDT): -continue to encourage weight loss -PT/OT Chronic anticoagulation 07/31/2017 Other ferry terminal agent (current) drug therapy 7 Ulcer of toe (CMS/HCC) 10/13/2016 Osteomyelitis 09/29/2016 Gangrene (CMS/HCC) 09/29/2016 Cervical dysplasia 08/27/2016 Gustatory sweating 04/08/2016 Hypertension, essential 04/04/2016 Overview (06/10/2018): HTN (hypertension), benign Assessment & Plan (05/26/2024 6:13 PM CDT): Cont home amlodipine, lisinopril Assessment & Plan (02/10/2020 12:01 PM CDT): BP currently controlled Home medications: Atenolol, Lisinopril and Norvasc on hold Assessment & Plan (02/09/2020 2:29 PM CDT): Currently blood pressure controlled Home medications : atenolol , lisinopril and norvasc on hold Continue to monitor . Assessment & Plan (02/08/2020 11:54 AM CDT): -currently controlled -holding atenolol and lisinopril Assessment & Plan (02/08/2020 9:26 AM CDT): Blood pressure stable on current medications. Observe blood pressure. Assessment & Plan (01/30/2020 8:11 AM CDT): Follow BP Lisinopril decreased to 20 mg a day today Assessment & Plan (01/16/2020 4:33 AM CDT): S/p nitro gtt in ED - continue home amlo 5 - cont GDMT as above Diabetes mellitus 04/04/2016 Overview (06/10/2018): DM type 2 with diabetic dyslipidemia Assessment & Plan (05/27/2024 3:20 PM CDT): Type 2 takes metformin, tresiba 32 units nightly, and novolog SSI. Considering SGLT2 inhibitors OP but has not started yet. A1c 5.1 - cc diet - start reduced dose lantus qPM, SSI. Titrate as needed Assessment & Plan (02/10/2020 12:13 PM CDT): BG currently stable -Continue Lantus nightly and SSI as needed -Holding home Metformin given the persistent renal failure -Continue accuchecks -Continue carb consistent diet Assessment & Plan (02/10/2020 10:07 AM CDT): Follow-up blood sugar. Discussed with the patient about outpatient plans for follow-up of her blood sugar and treatment with insulin Hold off on any metformin given the persistent renal failure Assessment & Plan (02/08/2020 11:52 AM CDT): -home lantus dose decreaesed significantly given MILTON -monitor blood glucose, currently controlled -sliding scale insulin as needed -home metformin discontinued Assessment & Plan (02/08/2020 9:26 AM CDT): Follow-up blood sugar. Assessment & Plan (02/07/2020 1:04 PM CDT): -home lantus dose decreaesed significantly given MILTON -monitor blood glucose -sliding scale insulin as needed -home metformin discontinued Assessment & Plan (01/31/2020 7:27 AM CDT): Stable. Follow glucose. May consider Farxiga after stable diuretic regimen in place Assessment & Plan (01/30/2020 9:48 AM CDT): Hold home metformin -cont accuchecks and lispro SSI -consistent carb diet Assessment & Plan (01/30/2020 8:10 AM CDT): Stable. Follow glucose. May consider Farxiga after stable diuretic regimen in place Assessment & Plan (01/29/2020 12:46 PM CDT): Hold home metformin -cont accuchecks and lispro SSI -consistent carb diet Assessment & Plan (01/29/2020 8:30 AM CDT): Stable. Follow glucose. May consider Farxiga after stable diuretic regimen in place Assessment & Plan (01/28/2020 8:39 AM CDT): Stable. Follow glucose. May consider Farxiga after stable diuretic regimen in place Assessment & Plan (01/27/2020 12:23 PM CDT): Hold home metformin -cont accuchecks and lispro SSI -consistent carb diet Assessment & Plan (01/26/2020 10:06 AM CDT): Hold home metformin -cont accuchecks and lispro SSI -consistent carb diet Assessment & Plan (01/16/2020 5:24 AM CDT): Last A1c 6.4% 10/2019. Home regimen insulin degludec 20u, SSI with meals - dose reduce to lantus 16u, MDSSI TAMRA (obstructive sleep apnea) 04/04/2016 Overview (06/10/2018): TAMRA on CPAP Assessment & Plan (05/26/2024 4:22 PM CDT): On CPAP; continue Assessment & Plan (02/10/2020 12:12 PM CDT): Continue CPAP Assessment & Plan (02/10/2020 10:07 AM CDT): Continue CPAP treatment. This problem is stable Assessment & Plan (01/31/2020 7:27 AM CDT): Continue CPAP Assessment & Plan (01/30/2020 9:46 AM CDT): -continue CPAP with oxygen bleed-in per home routine Assessment & Plan (01/30/2020 8:11 AM CDT): Continue CPAP Assessment & Plan (01/29/2020 12:48 PM CDT): -continue CPAP with oxygen bleed-in per home routine Assessment & Plan (01/29/2020 8:31 AM CDT): Continue CPAP Assessment & Plan (01/28/2020 8:40 AM CDT): Continue CPAP Assessment & Plan (01/27/2020 12:38 PM CDT): -continue CPAP with oxygen bleed-in per home routine Assessment & Plan (01/16/2020 4:34 AM CDT): Uses CPAP at home - cont here [facility] Body mass index 40+ - severely obese 04/04/2016 Overview (12/05/2016): Morbid obesity with BMI of 50.0-59.9, adult Encounter for screening mammogram for high-risk patient 07/04/2015 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 Continue acyclovir 400mg daily. Refills given Assessment & Plan (05/27/2021 3:30 PM CDT): No recurrence. Continue acyclovir 400 TID. 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 No sign of recurrence Acyclovir decreased to 200mg daily due to recent renal impairment. Cr now improved to 0.89. Likely can resume acyclovir 400 TID. Assessment & Plan (01/17/2019 4:03 PM CDT): H/o HSV OU, hx central corneal cloudiness OU, immature cataracts. No sign of recurrence Continue prophylactic ACV 400mg TID, more when stressed RTC 1 year Atrial fibrillation (CMS/HCC) 02/01/2014 Overview (07/08/2018): Paroxysmal atrial fibrillation Assessment & Plan (05/26/2024 6:08 PM CDT): S/p Maze in 2018. 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 A week later she developed a vitreous hemorrhage in the right eye. She called our office but we were unable to accommodate her for a week and therefore she contacted her previous retina doctors office and was able to get in to see them in 2 days. She received an injection of Lucentis in the right eye and this seemed to clear the vision more rapidly than when she is had Avastin injections in the past. Today there is only a small amount of vitreous hemorrhage inferiorly and everything appears fairly stable. OCT demonstrates an improvement in the macular edema in the right eye, in the left there is retinal atrophy and scarring. The left eye appears fairly stable. She states her other retina doctors ([facility]) are closer to her and it is easier for her to get there, I have encouraged her to see them per their last recommendation in approximately 4-5 weeks. Assessment & Plan (02/09/2023 4:07 PM CDT): With a history of proliferative diabetic retinopathy, requiring multiple injections and panretinal photocoagulation to both eyes. Recently underwent panretinal photocoagulation to the left eye however following laser she noticed a drastic decline in vision. She states she was seen the next day and started on some topical steroid drops. Despite this therapy she still has persistently poor vision left eye. Angiography reveals persistent NVE OD - we discussed options for therapy including observation, PRP laser, injections. After this discussion she would like additional PRP laser OD today. Examination demonstrates laser scars throughout the posterior poles in both eyes, there appeared to be some laser scars in the macula left eye as well. OCT demonstrates trace noncentral macular edema in both eyes. We discussed the possibility of resuming intravitreal injections for the macular edema versus observation. Considering the guarded prognosis for vision due to some scarring in the macula of the left eye we agreed to observation. We discussed the importance of blood sugar and blood pressure control. I think it is reasonable for her to try and come off of the topical steroid drop I have asked that she use it 3 times a day for a week then twice a day for a week then once a day for a week and then to stop its use altogether. She would like to transfer care to [facility]. I have asked her to return to see us roughly 4-6 weeks for re-evaluation. Resolved Problems Problem Noted Date Diagnosed Date Resolved Date Right-sided low back pain without sciatica 2024 06/02/2024 Assessment & Plan (2024 11:15 AM CDT): Unclear etiology. Improved with PRN meds and position - cont lidocaine patch, PRN APAP and tramadol Pulmonary hypertension 01/16/202005/26 Assessment & Plan (01/28/2020 8:41 AM CDT): Due to elevated PCWP (left heart failure from HFpEF) and sleep apnea. Plan: Cpap, weight loss, and diuretics Please obtain PT consult for ambulation Please obtain dietary consultatoin for low sodium, diabetic treatment and weight loss Assessment & Plan (01/27/2020 10:01 AM CDT): Will reassess pulmonary artery pressure on right heart catheterization. Assessment & Plan (01/26/2020 9:29 AM CDT): Will reassess pulmonary artery pressure on right heart catheterization. Will supplement vitamin K and follow the protime. 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/2019 Hypertensive heart disease w ith heart failure ([facility]/HCC) 10/19/2017 07/19/2019 Persistent atrial fibrillation 09/22/2017 07/19/2019 Encounters Date Type Department Care Team Description 09/20/2024 Orders Only [facility] Scanning, Provider 09/20/2024 Telephone [facility] Cardiology [address] [place] [address] [place] [address] Bebeto Murillo MD over due echo 09/08/2024 Telephone [facility] Surgery [address] [place] [address] Rosa Isela Mills CMA 09/07/2024 Telephone [facility] Surgery [address] [place] [id number] Yulisa Arce, AZUL 08/25/2024 Telephone [facility] Hematology [address] [place] [id number] Clint Gin 08/12/2024 Orders Only [facility] Cardiology [address] [place] [address] 8th [place] [address] [place] [address] Martita Munoz RN 08/11/2024 Orders Only [facility] Scanning, Provider 08/04/2024 Telephone [facility] Cardiology [address] [place] [address] 8th [place] [address] [place] [address] Bebeto Murillo MD 08/02/2024 Orders Only [facility] Scanning, Provider 07/26/2024 2:15 PM 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 DISTRIBUTOR OPERATOR Telemedicine [facility] Cardiology [address] [place] [address] 8th [place] [address] [place] [address] Bebeto Murillo MD Chronic heart failure with preserved ejection fraction (CMS/HCC) (HCC) (Primary Dx); S/P Maze operation for atrial fibrillation; Pleural effusion 07/26/2024 Telephone [facility] Cardiology [address] [place] [address] 8th [place] [address] [place] [address] Bebeto Murillo MD follow up labs 07/22/2024 Telephone [facility] Cardiology [address] [place] [address] 8th [place] [address] [place] [address] Ashley Samuels update 07/18/2024 Telephone [facility] Surgery [facility] [place] [address] Yuilsa Arce NP 07/13/2024 Telephone [facility] Hematology [address] [place] [id number] Priti Dennisria 06/30/2024 Telephone [facility] Surgery [address] [place] [address] Yulisa Arce NP 06/30/2024 Telephone [facility] Surgery [address] [place] [address] Yulisa Arce NP 06/29/2024 SHOP/CHAP Subsequent Outreach [facility] [address] [place] [address] Kavya Hall RN 06/28/2024 2:15 PM CDT Office Visit [facility] Cardiology [address] [place] [address] [facility] 8th [place] [address] [place] [address] Bebeto Murillo MD Heart failure with preserved ejection fraction, unspecified HF chronicity (HCC) (Primary Dx); Hypertension, essential 06/28/2024 1:58 PM CDT - 06/28/2024 11:59 PM CDT Hospital Encounter [facility] [address] [place] [id number] Pleural effusion Discharge Disposition: Discharge to home or self care 06/28/2024 Orders Only [facility] Cardiology [address] [place] [address] [facility] 8th [place] [address] [place] [address] Martita Munoz RN 06/28/[address] [facility] 8th [place] [address] [place] [address] Bebeto Murillo MD patient assistance with medication costs 06/28/2024 Orders Only [facility] Cardiology [address] [place] [address] [facility] 8th [place] [address] [place] [address] Martita Munoz, RN 06/28/2024 Orders Only [facility] Cardiology [address] [place] [address] [facility] 8th [place] [address] [place] [address] Bebeto Murillo MD Pleural effusion (Primary Dx) 06/23/2024 SHOP/CHAP Subsequent Outreach [facility] [address] [place] [address] Kavya Hall RN from Last 3 Months Surgical History Surgery Date Site/Laterality Comments ATRIAL ABLATION SURGERY 10/09/2017 CARDIAC TUMOR EXCISION 10/09/2017 MCDANIEL-MAZE MICROWAVE ABLATION APPENDECTOMY TONSILLECTOMY SALIVARY GLAND SURGERY Left TOE SURGERY Right Right big toe BREAST BIOPSY 08/31/1989 - 08/30/1990 Left benign BREAST BIOPSY 08/31/1999 - 08/30/2000 Right benign DILATION AND CURETTAGE OF UTERUS Polyp DILATION AND CURETTAGE OF UTERUS PMB OPERATIVE HYSTEROSCOPY IUD removal/Endometrial hyperplasia Medical History Medical History Date Comments Hypertension Hypertension Diverticulosis Atrial fibrillation (CMS/HCC) (HCC) Type 2 diabetes mellitus (HCC) Arthritis Ketoacidosis Herpes infection to both eyes in 2009 Sleep apnea Thyroid disease Small nodule Endometrial hyperplasia Morbid obesity with BMI of 50.0-59.9, adult (HCC ) Complex atypical endometrial hyperplasia 2010 HYSTEROSCOPY/d&c; MIRENA iud PONV (postoperative nausea and vomiting) Motion sickness Family History Medical History Relation Name Comments Sudden Brother 2 Sudden ; C ause of : Sudden Atrial fibrillation Brother 3 Family h istory of atrial fibrillation - (Added by TW Conv) Abdominal Aortic Aneurysm Father Emphysema Father Heart block Father Heart failure Father Hypertension Father Bladder Cancer Mother Breast cancer Mother COPD Mother Diabetes Mother Heart failure Mother Uterine cancer Mother Relation Name Status Comments Brother 1 (Age 58) Brother 2 Brother 3 Father Mother Social History Tobacco Use Types Packs/Day Years Used Date Smoking Tobacco: Former Smokeless Tobacco: Never Tobacco Cessation:Counseling Given: Not Answered Comments:quit 1986 Alcohol Use Standard Drinks/Week Comments No 0 (1 standard drink = 0.6 oz pur e alcohol) [facility] Utilities Answer Date Recorded In the past 12 months has [employer], gas, oil, or water company threatened to [...] often do you attend chur ch or christianity services? 1 to 4 times per year 06/03/2024 Do you belong to any clubs o r organizations such as latter-day groups, unions, fraternal or athletic groups, or [...] any time in the past 12 m [facility], were you homeless or living in a longterm (including now)? No 06/03/2024 Personal Safety Answer Date Recorded Have you ever been in or are you currently in a harmful physical or emotional relationship or is someone making you feel afraid or unsafe? 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 Gender Identity Not on file Sexual Orientation Not on file Occupation Industry Job Start Date Job End Date Retired Not on file Not on file Not on file Obstetrics History Para Term AB IAB SAB Ectopic Multiple Livin g Live Births 0 0 0 0 0 0 0 0 0 0 0 Last Filed Vital Signs Vital Sign Reading Time Taken Comments Blood Pressure 136/69 06/28/2024 2:17 PM CDT Pulse 65 06/28/2024 2:17 PM CDT Temperature 36.5 ??C (97.7 ??F) 06/02/2024 8:00 AM CD T Respiratory Rate 18 06/02/2024 8:00 AM CDT Oxygen Saturation 93% 06/28/2024 2:17 PM CDT Inhaled Oxygen Concentration - - Weight 154.3 kg (340 lb 3.2 oz) 06/28/2024 2:17 PM CDT Height 182.9 cm (6') 06/28/2024 2:17 PM CDT Body Mass Index 46.14 06/28/2024 2:17 PM CDT Plan of Treatment Health Maintenance Due Date Last Done Comments Hepatitis C Screening 1955 Osteoporosis Screening-Bone Density Scan 1955 Foot Exam 1955 Pneumococcal vaccine 65+ (1 of 2 - PCV) 1962 DTaP/Tdap/Td Vaccine (1 - Tdap) 1967 Hepatitis B Screening 1974 Zoster Vaccine (1 of 2) 2006 Albumin Creatinine Ratio, Urine 10/11/2020 0 Lipid Panel 01/14/2021 01/15/2020, 10/01, 10/07/2017, Additional history exists Well Visit 65+ 2021 Dilated Eye Exam 03/30/2024 03/30/2023, , 05/27/2021 Breast Cancer Screening-Mammogram 04/03/2024 04/03/2023, 12/31/2021, 10/09/2020, Additional history exists Covid-19 Vaccine (3 - 2023-2 5 season) 2024 11/20/2020, 10/10/2020 Influenza Vaccine (#1) 2024 Hemoglobin A1C 11/23/2024 05/26/2024, 12/29, 10/11/2019, Additional history exists Depression Screening 05/26/2025 05/26/2024 Fall Risk Assessment 06/02/2025 06/02/2024 eGFR 08/11/2025 08/11/2024, 07/02, 06/01/2024, Additional history exists Colon Cancer Screening-Colonoscopy 05/31/2034 05/31/2024, 06/13/2019 Colon Cancer Screening-CT Colonography Discontinued 05/31/2024, 06/13/2019 Colon Cancer Screening-DNA Stool Discontinued 05/31/20, 06/13/2019 Colon Cancer Screening-FIT Discontinued 05/31/2024, Colon Cancer Screening-Sigmoidoscopy Discontinued 05/31/2024, 06/13/2019 Procedures Procedure Name Priority Date/Time Associated Diagnosis Comments SCAN - RADIOLOGY/IMAGING 09/20/2024 BASIC METABOLIC PANEL Routine 08/11/2024 3:34 PM BITUMINOUS DISTRIBUTOR OPERATOR PRO B-TYPE NATRIURETIC PEPTIDE Routine 08/11/2024 3:34 PM BITUMINOUS DISTRIBUTOR OPERATOR SCAN - LABS 08/11/2024 SCAN - RADIOLOGY/IMAGING 08/02/2024 BASIC METABOLIC PANEL Routine 07/21/2024 3:34 PM BITUMINOUS DISTRIBUTOR OPERATOR Heart failure with preserved ejection fraction, unspecified HF chronicity (HCC) XR CHEST PA LATERAL 2 VIEWS Schedule Routine, Read Routine (OP Routine) 06/28/2024 2:02 PM CDT Pleural effusion COLONOSCOPY 05/31/2024 5:14 PM CDT HEMOGLOBIN A1C STAT 05/26/2024 1:24 PM CDT SCREENING MAMMOGRAM BILATERAL W JOSE Schedule Routine, Read Routine (OP Routine) 04/03/2023 2:45 PM CDT At risk for breast cancer Encounter for screening mammogram for malignant neoplasm of breast LIPID PANEL STAT 01/15/2020 11:33 PM CDT ALBUMIN CREATININE RATIO, URINE Routine 10/11/2019 11:56 AM BITUMINOUS DISTRIBUTOR OPERATOR from Last 3 Months or Most Recently Relevant to Health Maintenance Results * SCAN - RADIOLOGY/IMAGING (09/20/2024) Anatomical Region Laterality Modality Other us Provider Scanning Final Result * (ABNORMAL) Pro B-type natriuretic peptide (08/11/2024 3:34 PM BITUMINOUS DISTRIBUTOR OPERATOR) NT PROBNP 457(H) <125 pg/mL SysClassYanely cochran 08/11/2024 3:34 PM BITUMINOUS DISTRIBUTOR OPERATOR 08/11/2024 3:34 PM BITUMINOUS DISTRIBUTOR OPERATOR Bebeto Murillo MD LAB BLOOD ORDERABLES F inal Result [facility] [address] [place] [address] * Basic metabolic panel (08/11/2024 3:34 PM BITUMINOUS DISTRIBUTOR OPERATOR) Glucose 88 65 - 99 mg/dL [facility] Comment: ? Fasting reference interval BUN 18 7 - 25 mg/dL [facility] Creatinine 0.98 0.50 - 1.05 mg/dL [facility] Comment: Verified by repeat analysis. eGFR 63 > OR = 60 mL/min/1.7 3m2 [facility] BUN/creat ratio SEE NOTE: (calc) [facility] Comment: ?? Not Reported: BUN and Creatinine are within ?? reference range. ? Sodium 139 135 - 146 mmol/L [facility] Potassium, pl 4.2 3.5 - 5.3 mmol/L [facility] Chloride 103 98 - 110 mmol/L [facility] CO2 30 20 - 32 mmol/L [facility] Calcium 9.7 8.6 - 10.4 mg/dL [facility] 08/11/2024 3:34 PM BITUMINOUS DISTRIBUTOR OPERATOR 08/11/2024 3:34 PM BITUMINOUS DISTRIBUTOR OPERATOR Bebeto Murillo MD LAB BLOOD ORDERABLES F inal Result [facility] [address] [place] [address] * SCAN - LABS (08/11/2024) Provider Scanning Final Result * SCAN - RADIOLOGY/IMAGING (08/02/2024) Anatomical Region Laterality Modality Other Provider Scanning Final Result * Basic metabolic panel (07/21/2024 3:34 PM BITUMINOUS DISTRIBUTOR OPERATOR) [facility] Glucose 89 65 - 99 mg/dL [facility] Comment: ? Fasting reference interval BUN 17 7 - 25 mg/dL [facility] Creatinine 0.84 0.50 - 1.05 mg/dL [facility] eGFR 76 > OR = 60 mL/min/1.7 3m2 [facility] BUN/creat ratio SEE NOTE: 6 22 (calc) [facility] Comment: ?? Not Reported: BUN and Creatinine are within ?? reference range. ? Sodium 139 135 - 146 mmol/L [facility] Potassium, pl 4.1 3.5 - 5.3 mmol/L [facility] Chloride 103 98 - 110 mmol/L [facility] CO2 30 20 - 32 mmol/L [facility] Calcium 9.7 8.6 - 10.4 mg/dL [facility] Blood 07/21/2024 3:34 PM BITUMINOUS DISTRIBUTOR OPERATOR 07/21/2024 3:34 PM BITUMINOUS DISTRIBUTOR OPERATOR Bebeto Murillo MD LAB BLOOD ORDERABLES F inal Result [facility] [address] [place] [address] * X-ray chest 2 views (06/28/2024 2:02 PM CDT) Anatomical Region Laterality Modality Body, Chest N/A Computed Radiogr aphy 06/28/2024 3:02 PM CDT Impressions 06/28/2024 5:58 PM CDT Comparison 06/02/2024. Median sternotomy wires are aligned and intact. Unchanged moderate right pleural effusion with interval improvement of associated atelectasis. ??No left-sided pleural effusion. ??No pneumothorax. ??Stable enlarged cardiomediastinal silhouette. Dictated by: Jaspreet Jenkins M.D. The radiology attending physician has personally reviewed this study, and had reviewed and/or edited this written report and agrees with it. Electronically signed by: Jaime Herbert M.D. Narrative 06/28/2024 5:58 PM CDT EXAMINATION: 2 view chest radiograph Procedure Note Jaime Herbert MD - 06/28/2024 EXAMINATION: 2 view chest radiograph IMPRESSION: Comparison 06/02/2024. Median sternotomy wires are aligned and intact. Unchanged moderate right pleural effusion with interval improvement of associated atelectasis. No left-sided pleural effusion. No pneumothorax. Stable enlarged cardiomediastinal silhouette. Dictated by: Jaspreet Jenkins M.D. The radiology attending physician has personally reviewed this study, and had reviewed and/or edited this written report and agrees with it. Electronically signed by: Jaime Herbert M.D. Bebeto Murillo MD IMG XR PROCEDURES Mimi l Result * Colonoscopy (05/31/2024 5:14 PM CDT) Anatomical Region Laterality Modality Other Narrative Procedure Note Darleen May MD - 05/31/2024 5:14 PM CDT [facility] Patient Name: Gonzalez Tejeda Procedure Date: 05/31/2024 5:14 PM Date of : 1955 Admit Type: Inpatient Age: 69 Gender: Female Attending MD: Darleen May M.D. Room: [facility] ENDOSCOPY Note Status: Finalized Procedure: Colonoscopy Indications: Iron deficiency anemia Referring MD: Mira Marks M.D. Providers: Darleen May M.D. Medicines: Monitored Anesthesia Care Complications: No immediate complications. Estimated Blood Loss: Estimated blood loss: none. Procedure: Pre-Anesthesia Assessment: - ASA Grade Assessment: III - A patient with severe systemic disease. - The risks and benefits of the procedure and the sedation options and risks were discussed with the patient. All questions were answered and informed consent was obtained. - Immediately prior to administration ofmedications, the patient was re-assessed for adequacy to receive sedatives. The benefits, risks and alternatives of theprocedure and sedation were discussed and informed consentwas obtained. All questions were answered. Please referto the signed informed consent document in the medical record. The scope was passed under direct vision.The CF [id number] endoscope was introduced through the anus and advanced to the the cecum, identifiedby appendiceal orifice and ileocecal valve. The colonoscopy was technically difficult and complexdue to a redundant colon, significant looping and a tortuous colon. Successful completion of theprocedure was aided by applying abdominal pressure. Thepatient tolerated the procedure well. The quality of thebowel preparation was adequate to identify polyps 6 mmand larger in size. The bowel preparation used was GoLYTELY via split dose instruction. Findings: Hemorrhoids were found on perianal exam. Three pedunculated and sessile polyps were found in the transversecolon and ascending colon. The polyps were 4 to 10 mm in size. These polyps were removed with a cold snare. Resection and retrieval werecomplete. To prevent bleeding after the polypectomy, one hemostatic clip was successfully placed (MR conditional). Clip lowerator operator: [employer]. There was no bleeding at the end of the procedure. The exam was otherwise without abnormality on direct and retroflexion views. Impression: - Hemorrhoids found on perianal exam. - Three 4 to 10 mm polyps in the transverse colonand in the ascending colon, removed with a cold snare. Resected and retrieved. Clip (MR conditional) was placed. Clip lowerator operator: [employer]. - The examination was otherwise normal on directand retroflexion views. Recommendation: - Patient has a contact number available for emergencies. The signs and symptoms of potential delayed complications were discussed with thepatient. Return to normal activities tomorrow. Written discharge instructions were provided to thepatient. - Resume previous diet. - Continue present medications. - Await pathology results. - Repeat colonoscopy in 3 years for surveillancebased on pathology results, will need 2 DAY PREP - lidocaine ointment/witchhazel pads for external hemorrhoids that look inflamed Electronically signed by Darleen May MD Darleen May M.D. 05/31/2024 5:55:06 PM Number of Addenda: 0 Note Initiated On: 05/31/2024 5:14 PM us Darleen May MD ENDOSCOPY PROCEDURES Final Res ult * Hemoglobin A1c (05/26/2024 1:24 PM CDT) Hgb A1C 5.1 4.0 - 5.6 % Estimated Average Glucose 100 mg/dL JONES WALTON Comment: The ADA recommends reporting an estimated Average Glucose (eAG) with all Hemoglobin A1c results using the equation derived from a study of 507 normal and diabetic adults. ??Minority populations were underrepresented and children were not included. ?? (Diabetes Care 31:4016-3426, 2008). ??The eAG is not equivalent to a fasting glucose. Blood 05/26/2024 1:24 PM CDT 05/26/2024 1:25 PM CDT us Anabelle Mckeon MD LAB BLOOD ORDERABLES Final R esult [facility] [address] [facility]. [place] [address] * Screening Mammogram Bilateral W Jose (04/03/2023 2:45 PM CDT) Anatomical Region Laterality Modality Breast Bilateral Mammography Narrative 04/05/2023 9:52 AM CDT Mammogram Technique: Bilateral Digital Breast Tomosynthesis, Bilateral C-view 2D Screening mammogram. ??Views obtained: ??bilateral craniocaudal and bilateral mediolateral oblique. ??Computer Aided Detection was performed. Mammogram Findings: The present examination has been compared to prior imaging studies performed at [facility] on 12/31/2021, at [facility] on 10/09/2020, and at [place], [place] on 06/21/2018. There are scattered areas of fibroglandular density. There is no suspicious abnormality in either breast. Impression: There is no mammographic evidence of malignancy. Annual screening mammography is recommended. OVERALL FINAL ASSESSMENT: BI-RADS CATEGORY 1: ??Negative. Procedure Note Miladys Sarah MD - 04/05/2023 Mammogram Technique: Bilateral Digital Breast Tomosynthesis, Bilateral C-view 2D Screening mammogram. Views obtained: bilateral craniocaudal and bilateral mediolateral oblique. Computer Aided Detection was performed. Mammogram Findings: The present examination has been compared to prior imaging studies performed at [facility] on 12/31/2021, at [facility] on 10/09/2020, and at [place], [place] on 06/21/2018. There are scattered areas of fibroglandular density. There is no suspicious abnormality in either breast. Impression: There is no mammographic evidence of malignancy. Annual screening mammography is recommended. OVERALL FINAL ASSESSMENT: BI-RADS CATEGORY 1: Negative. Faiza Alberto NP IMG MAMMO PROCEDURES Fin al Result * (ABNORMAL) Lipid panel (01/15/2020 11:33 PM CDT) Cholesterol 129 30 - 199 mg/dL JONES VELOZ Comment: Interpretive Data Ages < or = 19 years ??Acceptable: ? <170 mg/dL ??Borderline high: ??170-199 mg/dL ??High: ? >or= 200 mg/dL Ages > or = 20 years ??Desirable: ?<200 mg/dL ??Borderline high: ??200-239 mg/dL ??High: ? >or= 240 mg/dL Literature References: 1. Expert Panel on Integrated Guidelines for Cardiovascular Health and Risk Reduction in Children and Adolescents. Pediatrics 2011;128:S213 2. NCEP Expert Panel. Circulation 2004;110:227 Current Interpretive Data was last revised on 2018. Triglycerides 108 <=149 mg/dL JONES MCGUIRE Comment: Interpretive Data Ages < or = 9 years ??Acceptable: ? <75 mg/dL ??Borderline high: ??75-99 mg/dL ??High: ? >or= 100 mg/dL Ages 10 to 20 years ??Acceptable: ? <90 mg/dL ??Borderline high: ??90-129 mg/dL ??High: ? >or= 130 mg/dL Ages > or = 20 years ??Desirable: ?<150 mg/dL ??Borderline high: ??150-199 mg/dL ??High: ? 200-499 mg/dL ?Very high: ?? >or= 499 mg/dL Literature References: 1. Expert Panel on Integrated Guidelines for Cardiovascular Health and Risk Reduction in Children and Adolescents. Pediatrics 2011;128:S213 2. NCEP Expert Panel. Circulation 2004;110:227 Current Interpretive Data was last revised on 2018. HDL 29(L) >=40 mg/dL JONES VELOZ Comment: Interpretive Data Ages < or = 19 years ??Acceptable: ? >45 mg/dL ??Borderline low: ?? 40-45 mg/dL ??Low: ? <40 mg/dL Ages > or = 20 years ??Desirable: ?>or= 60 mg/dL ??Low: ? <40 mg/dL Literature References: 1. Expert Panel on Integrated Guidelines for Cardiovascular Health and Risk Reduction in Children and Adolescents. Pediatrics 2011;128:S213 2. NCEP Expert Panel. Circulation 2004;110:227 Current Interpretive Data was last revised on 2018. LDL, calculated 78 <=129 mg/dL JONES VELOZ Comment: Interpretive Data Ages < or = 19 years ??Acceptable: ? <110 mg/dL ??Borderline high: ??110-129 mg/dL ??High: ?>or= 130 mg/dL Ages > or = 20 years ??Optimal: ? <100 mg/dL ??Near optimal: ?100-129 mg/dL ??Borderline high: ?? 130-159 mg/dL ??High: ?>160 mg/dL Literature References: 1. Expert Panel on Integrated Guidelines for Cardiovascular Health and Risk Reduction in Children and Adolescents. Pediatrics 2011;128:S213 2. NCEP Expert Panel. Circulation 2004;110:227 Current Interpretive Data was last revised on 2018. Non-HDL Cholesterol 100 mg/dL [facility] Comment: Interpretive Data Ages < or = 19 years ??Acceptable: ?<120 mg/dL ??Borderline high: ??120-144 mg/dL ??High: ?>145 mg/dL Ages > or = 20 years ??When triglycerides are >200 mg/dL, Non-HDL cholesterol is a secondary target of ? therapy with treatment goals that are 30 mg/dL greater than the LDL cholesterol target. ? Literature References: 1. Expert Panel on Integrated Guidelines for Cardiovascular Health and Risk Reduction in Children and Adolescents. Pediatrics 2011;128:S213 2. NCEP Expert Panel. Circulation 2004;110:227 Current Interpretive Data was last revised on 2018. Chol/HDL ratio 4 [facility] Blood specimen (specimen) 01/15/2020 11:33 PM CDT 01/15/2020 11:47 PM CDT us Carroll Osei MD LAB BLOOD ORDERABLES Fi nal Result [facility] Department [place] [address] * (ABNORMAL) Albumin Creatinine Ratio, Urine (10/11/2019 11:56 AM BITUMINOUS DISTRIBUTOR OPERATOR) Creatinine, ur 150 20 - 275 mg/dL [facility] [place] Microalbumin, ur 66.0 See Note: mg/dL [facility] [place] Comment: Reference Range: Reference Range Not established Verified by repeat analysis. Microalbumin/creat ratio 440(H) <30 mcg/mg creat [facility] [place] Comment: The ADA defines abnormalities in albumin excretion as follows: Category ? Result (mcg/mg creatinine) Normal ?<30 Microalbuminuria ? 30-299 Clinical albuminuria ?? > OR = 300 The ADA recommends that at least two of three specimens collected within a 3-6 month period be abnormal before considering a patient to be within a diagnostic category. 10/11/2019 11:5 6 AM BITUMINOUS DISTRIBUTOR OPERATOR 10/11/2019 12:02 PM BITUMINOUS DISTRIBUTOR OPERATOR Narrative [facility] - 10/12/2019 6:06 PM BITUMINOUS DISTRIBUTOR OPERATOR FASTING:YES FASTING: YES Resulting Agency Comment Performing Organization Information: ?Site ID: [id number] ?Name: [facility] ?Address: [address] [address] ?Director: Al Sosa D.O., MPH us Gin Arenas [facility] LAB URINE ORDERABLES Final Res ult [facility] Martinez from Last 3 Months or Most Recently Relevant to Health Maintenance Insurance [facility] CHOICE [facility]US [facility] H[facility]/PPO Address: [address] [address] [place] [address] CHO[place] [facility] MEDICARE [facility] CHOICE PLUS [facility] HMO/PPO Address: [address] [address] [place] [address] CHOICE [place]F [place] [facility]ICE [facility] H[facility]/PPO Address: [address] [address] [place] [address] MEDICARE [facility] Advance Directives For more information, please contact: [phone] Documents on File Type Date Recorded Patient Returned Item Clerk Expl anation ADVANCE DIRECTIVE 10/23/2017 10:45 PM * Full Code (Latest Code Status on File) Date Activated Date Inactivated Comments 05/29/2024 10:10 PM 06/02/2024 6:25 PM * Full Code Date Activated Date Inactivated Comments 05/26/2024 6:04 PM 05/29/2024 9:30 PM * Full Code Date Activated Date Inactivated Comments 02/07/2020 1:29 AM 02/10/2020 9:51 PM * Full Code Date Activated Date Inactivated Comments 01/25/2020 7:17 PM 01/31/2020 8:14 PM * Full Code Date Activated Date Inactivated Comments 01/16/2020 9:11 AM 01/19/2020 8:03 PM Care Teams Product Marketing Specialist Relationship Specialty Start Date End Date Jaime Givens DO PCP - General 10/13/16 Thad Arredondo MD Consulting Physician Cardiology 05/14/18 Michi De La Paz MD PhD Referring Physician Cardiology 05/14/18 Bebeto Murillo MD Referring Physician Cardiology 09/09/19 Daija Smart DO [address] [place] [id number] 911 Emergency Services Dispatcher Obstetrics and Gynecology 09/04/23 Michelle Sherman NP [address] [place] [address] Nurse Practitioner Obstetrics and Gynecology 12/22/23 Amelia Garner NP [address] [place] [id number] Nurse Practitioner Obstetrics and Gynecology 06/27/24
--- OUTSIDE RECORDS SUMMARY | 2024-09-23 03:03 | XMS_ITS | Encounter Summary ---
Author Organization [facility] Address [address] [place] [address] Phone Care Team Providers Care Hydraulic Technician Name Role Phone Jaime Givens DO Primary Care Provider [phone]- [phone] Thad Arredondo MD Unavailable [phone] Michi De La Paz MD PhD Unavailable [phone] Bebeto Murillo MD Unavailable [phone] Daija Smart DO Unavailable [phone] Michelle Sherman NP Unavailable [phone] Gin Syed MD Unavailable [phone] Kavya Hall RN Unavailable [phone] Amelia Garner NP Unavailable [phone] Encounter Details Date Type Department Care Team (Latest Contact Info) Description 02/24/2022 Orders Only [facility] Scanning, Provider Social History Tobacco Use Types Packs/Day Years Used Date Smoking Tobacco: Former Smokeless Tobacco: Never Comments:quit 1986 Alcohol Use Standard Drinks/Week Comments No 0 (1 standard drink = 0.6 oz pur e alcohol) Comments No Sex and Gender Information Value Date Recorded Sex Assigned at Not on file Legal Sex Female 1:11 AM NEUROLOGICAL PHYSIOTHERAPIST Gender Identity Not on file Sexual Orientation Not on file Occupation Industry Job Start Date Job End Date Retired Not on file Not on file Not on file documented as of this encounter Progress Notes * Martita Munoz RN - 02/24/2022 11:59 PM CDT Pt has appt in May,. Labs from PCP documented in this encounter Plan of Treatment Not on file documented as of this encounter Procedures Procedure Name Priority Date/Time Associated Diagnosis Comments SCAN - LABS 02/24/2022 documented in this encounter Results * SCAN - LABS (02/24/2022) us Provider Scanning Final Result documented in this encounter Visit Diagnoses Not on filedocumented in this encounter Care Teams Hydraulic Technician Relationship Specialty Start Date End Date Jaime Givens DO PCP - General 10/13/16 Thad Arredondo MD Consulting Physician Cardiology 05/14/18 Michi De La Paz MD PhD Referring Physician Cardiology 05/14/18 Bebeto Murillo MD Referring Physician Cardiology 09/09/19 Daija Smart DO [address] [place] [id number] Senior Patrol Agent Obstetrics and Gynecology 09/04/23 Michelle Sherman NP [address] [place] [id number] Nurse Practitioner Obstetrics and Gynecology 12/22/23 Gin Syed MD [address] [facility] [address] [place] [address] Resident Internal Medicine 05/29/24 05/30/24 Kavya Hall, RN [address] [facility] [address] [place] [address] SHOP Outpatient Lead Investigator 06/03/24 06/28/24 Amelia Garner NP [address] [facility] [place] [place] [address] Nurse Practitioner Obstetrics and Gynecology 06/27/24 documented as of this encounter
--- OUTSIDE RECORDS SUMMARY | 2024-09-23 03:03 | XMS_ITS | Encounter Summary ---
Author Organization [facility] Address [address] [place] [address] Phone Care Team Providers Care Coiler Name Role Phone Jaime Givens DO Primary Care Provider [phone]- [phone] Thad Arredondo MD Unavailable [phone] Michi De La Paz MD PhD Unavailable [phone] Bebeto Murillo MD Unavailable [phone] Daija Smart DO Unavailable [phone] Michelle Sherman NP Unavailable [phone] Gin Syed MD Unavailable [phone] Kavya Hall RN Unavailable [phone] Amelia Garner NP Unavailable [phone] Encounter Details Date Type Department Care Team (Latest Contact Info) Description 03/22/2024 Orders Only [facility] Scanning, Provider Social History Tobacco Use Types Packs/Day Years Used Date Smoking Tobacco: Former Smokeless Tobacco: Never Comments:quit 1986 Alcohol Use Standard Drinks/Week Comments No 0 (1 standard drink = 0.6 oz pur e alcohol) Personal Safety Answer Date Recorded Getting School Help Needed Not on file 09/04 Comments No Sex and Gender Information Value Date Recorded Sex Assigned at Not on file Legal Sex Female 1:11 AM REGISTERED MASSAGE THERAPIST Gender Identity Not on file Sexual Orientation Not on file Occupation Industry Job Start Date Job End Date Retired Not on file Not on file Not on file documented as of this encounter Plan of Treatment Not on file documented as of this encounter Procedures Procedure Name Priority Date/Time Associated Diagnosis Comments SCAN - RADIOLOGY/IMAGING 03/22/2024 documented in this encounter Results * SCAN - RADIOLOGY/IMAGING (03/22/2024) Anatomical Region Laterality Modality Other us Provider Scanning Edited Result - Final documented in this encounter Visit Diagnoses Not on filedocumented in this encounter Care Teams Coiler Relationship Specialty Start Date End Date Jaime Givens DO PCP - General 10/13/16 Thad Arredondo MD Consulting Physician Cardiology 05/14/18 Michi De La Paz MD PhD Referring Physician Cardiology 05/14/18 Bebeto Murillo MD Referring Physician Cardiology 09/09/19 Daija Smart DO [address] [place], [place] [id number] Real Estate Valuer Obstetrics and Gynecology 09/04/23 Michelle Sherman NP [address] [place], [place] [id number] Nurse Practitioner Obstetrics and Gynecology 12/22/23 Gin Syed MD [address] [id number] Resident Internal Medicine 05/29/24 05/30/24 Kavya Hall, RN [address] [facility] [address] [place] [address] Scan Technician 06/03/24 06/28/24 Amelia Garner NP [address] [facility] [place] [address] Nurse Practitioner Obstetrics and Gynecology 06/27/24 documented as of this encounter
--- OUTSIDE RECORDS SUMMARY | 2024-09-23 03:03 | XMS_ITS | Encounter Summary ---
Author Organization [facility] Address [address] [place] [address] Care Team Providers Care Reinforcement Maker Name Role Phone Jaime Givens DO Primary Care Provider Encounter Details Date Type Department Care Team (Late st Contact Info) Description 09/09/2000 Outpatient Historical HIS MD Yonny MORAES Carolyn, MD [address] [place] [id number] Social History Tobacco Use Types Packs/Day Years Used Date Smoking Tobacco: Never Assessed Comments Unknown Sex and Gender Information Value Date Recorded Sex Assigned at Not on file Legal Sex Female 3:21 AM CHILD CARE ASSISTANT Gender Identity Not on file Sexual Orientation Not on file documented as of this encounter Plan of Treatment Not on file documented as of this encounter Visit Diagnoses Not on filedocumented in this encounter Care Teams Reinforcement Maker Relationship Specialty Start Date End Date Jaime Givens DO [address] [facility] [address] [place] [address] PCP - General Internal Medicine 06/14/18 documented as of this encounter
--- OUTSIDE RECORDS SUMMARY | 2024-09-23 03:03 | XMS_ITS | Encounter Summary ---
Author Organization [facility] Address [address] [facility] [address] [place] [address] Phone Care Team Providers Care Power Washer Name Role Phone Jaime Givens DO Primary Care Provider + [phone] Thad Arredondo MD Unavailable [phone] Michi De La Paz MD PhD Unavailable [phone] Bebeto Murillo MD Unavailable [phone] Daija Smart DO Unavailable [phone] Michelle Sherman NP Unavailable [phone] Amelia Garner NP Unavailable [phone] Encounter Details Date Type Department Care Team (Late st Contact Info) Description 06/30/2024 Telephone [facility] Surgery [address] [facility] [address] [place] [address] Yulisa Arce NP [address] [facility] [phone] [place] [address] Social History Tobacco Use Types Packs/Day Years Used Date Smoking Tobacco: Former Smokeless Tobacco: Never Comments:quit 1986 Alcohol Use Standard Drinks/Week Comments No 0 (1 standard drink = 0.6 oz pur e alcohol) [facility] Utilities Answer Date Recorded In the past 12 months has th e [employer], gas, oil, or water [employer] threatened to shut off services in your [...] often do you attend chur ch or temple services? 1 to 4 times per year 06/03/2024 Do you belong to any clubs o r organizations such as jehovah's witness groups, unions, fraternal or athletic groups, or [...] any time in the past 12 m [facility], were you homeless or living in [...] on file Legal Sex Female 1:11 AM ORTHOPEDICS NURSE Gender Identity Not on file Sexual Orientation Not on file Occupation Industry Job Start Date Job End Date Retired Not on file Not on file Not on file documented as of this encounter Plan of Treatment Not on file documented as of this encounter Visit Diagnoses Not on filedocumented in this encounter Care Teams Power Washer Relationship Specialty Start Date End Date Jaime Givens DO PCP - General 10/13/16 Thad Arredondo MD Consulting Physician Cardiology 05/14/18 Michi De La Paz MD PhD Referring Physician Cardiology 05/14/18 Bebeto Murillo MD Referring Physician Cardiology 09/09/19 Daija Smart DO [address] [place] [address] [employer] Console Operator Track Obstetrics and Gynecology 09/04/23 Michelle Sherman, AZUL [address] [address] Nurse Practitioner Obstetrics and Gynecology 12/22/23 Amelia Garner NP [address] [address] Nurse Practitioner Obstetrics and Gynecology 06/27/24 documented as of this encounter
--- OUTSIDE RECORDS SUMMARY | 2024-09-23 03:03 | XMS_ITS | Clinical Summary ---
Author Organization [facility] Address [address] [place] [address] Phone Care Team Providers Care Corporate Strategy Associate Name Role Phone Jaime Givens DO Primary Care Provider Allergies Active Allergy Reactions Criticality Noted Date Comments Actifed Sinus Daytime, Night Swelling Low 10/30/2010 Clindamycin Other (See Comments) 06/21/2018 Unsure Doxycycline Shortness of Breath/Wheezing High 06/21/2018 Flecainide Other (See Comments) 06/21/2018 ekg wave went wrong Metoprolol Itching,Other (See Comments) Low 10/30/2010 Nystatin Itching Low 10/30/2010 Phenylephrine-Guaifenes in Other (See Comments) 10/30/2010 Heart racing Medications acyclovir (ZOVIRAX) 400 mg Oral tablet Take 400 mg by mouth see administration instructions. Active lisinopril-hyd rochlorothiazi de (ZESTORETIC) 20-12.5 mg Oral tablet Take 1 Tab by mouth 2 times daily. Active atenolol (TENORMIN) 50 mg Oral tablet Take 50 mg by mouth daily. Active metFORMIN (GLUCOPHAGE) 1,000 mg tablet 5 Active amLODIPine (NORVASC) 5 mg tablet 5 Active aspirin (ECOTRIN EC) 81 mg Tablet, Delayed Release (E.C.) Take 81 mg by mouth daily. Active insulin degludec (TRESIBA FLEXTOUCH U-100) 100 unit/mL pen syringe Inject 22 Units by subcutaneous injection one time only. Active insulin NPH human isophane (NOVOLIN N SUBCUT) Inject by subcutaneous injection. Active apixaban (ELIQUIS) 5 mg tablet Take by mouth 2 times daily. Active Active Problems Patient Care Coordination No te Formatting of this note migh t be different from the original. Primary Care: Jaime Givens DO Referring Provider: Al Leonardo MD [address] [place] [id number] Other: Problem Noted Date Diagnosed Date Encounter for screening mammogram for high-risk patient 07/04/2015 Diffuse cystic mastopathy 03/01/2014 Diabetes Torn meniscus HTN (hypertension) Arthritis Family History Medical History Relation Name Comments Diabetes Brother Breast Cancer Mother dx @ age 42 Cancer Mother bladder ca Diabetes Mother Uterine Cancer Mother dx @age 70's Ovarian Cancer Neg Hx Relation Name Status Comments Brother Mother Social History Tobacco Use Types Packs/Day Years Used Date Smoking Tobacco: Former Cigarettes Q uit: 08/31/1986 Smokeless Tobacco: Former Tobacco Cessation:Counseling Given: No Alcohol Use Standard Drinks/Week Comments No 0 (1 standard drink = 0.6 oz pur e alcohol) Comments No Sex and Gender Information Value Date Recorded Sex Assigned at Not on file 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 Sex 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 Gender Identity Not on file Sexual Orientation Not on file Occupation Industry Job Start Date Job End Date Not on file Not on file Not on file Not on file Last Filed Vital Signs Vital Sign Reading Time Taken Comments Blood Pressure 128/67 06/21/2018 11:27 AM CDT Pulse 67 07/04/2015 12:44 PM FARM SPECIALIST Temperature - - Respiratory Rate 20 06/24/2012 12:34 PM CDT Oxygen Saturation - - Inhaled Oxygen Concentration - - Weight 176 kg (388 lb) 06/21/2018 11:27 AM CDT Height 182.9 cm (6') 06/21/2018 11:27 AM CDT Body Mass Index 52.62 06/21/2018 11:27 AM CDT Plan of Treatment Health Maintenance Due Date Last Done Comments DIABETES ANNUAL FOOT EXAM 1974 DIABETES ANNUAL RETINAL EXAM 1974 DIABETES HBA1C Q 6 MONTHS 1974 DIABETES MICROALBUMIN ANNUAL SCREEN 1974 LDL CHOLESTEROL ANNUAL 1974 DTAP/TDAP/TD VACCINES (1 - Tdap) 1975 PNEUMOCOCCAL VACCINE 65+ YEA RS (1 of 2 - PCV) 1975 COLORECTAL SCREENING 2001 Colorectal Cancer Screening 2001 FIT-DNA Q 3 years 2001 FIT/FOBT Q 1 year 2001 Flex Sig/CT Colonography Q 5 years 2001 ZOSTER VACCINE (1 of 2) 2006 RSV VACCINE (60+ or ) (1 - Risk 60-74 years 1-dose series) 2016 BREAST CANCER SCREENING 06/21/2019 06/21/20 18, 07/04/2015, 06/29/2014, Additional history exists OSTEOPOROSIS SCREENING 2021 INFLUENZA VACCINE (#1) 2024 Procedures Procedure Name Priority Date/Time Associated Diagnosis Comments MAMMO 3D JT SCREEN BILAT W OR WO CAD Routine 06/21/2018 11:21 AM CDT Encounter for screening mammogram for high-risk patient from Last 3 Months or Most Recently Relevant to Health Maintenance Results * MAMMO SCRN BILAT 3D JT W OR WO CAD (06/21/2018 11:21 AM CDT) Anatomical Region Laterality Modality Breast Bilateral Mammography 06/21/2018 11:2 2 AM CDT Impressions 06/22/2018 9:04 AM CDT IMPRESSION: No mammographic evidence of malignancy. RECOMMENDATIONS: Routine screening mammogram in one year. Dictated from: Dusty Carmichael Narrative 06/22/2018 9:04 AM CDT BILATERAL FULL-FIELD DIGITAL SCREENING MAMMOGRAM WITH CAD WITH 3D TOMOSYNTHESIS DATE: 06/21/2018 11:21 AM HISTORY: Routine screening. TECHNIQUE: Full-field digital craniocaudal and mediolateral oblique projections of both breasts were obtained. Low-dose full-field digital breast tomosynthesis examination was performed with 2D and 3D acquisitions. Examination is read in conjunction with computer aided detection. COMPARISON: May 2012 through July 2015 BREAST COMPOSITION: Scattered fibroglandular densities. FINDINGS: No suspicious mass, suspicious microcalcifications, or architectural distortion in either breast is identified. Since the prior study, there has been no significant interval change. The computer aided diagnosis detects no significant abnormality. OVERALL ASSESSMENT: BI-RADS Category 1 - Negative. Procedure Note Billy Zhu MD - 06/22/2018 BILATERAL FULL-FIELD DIGITAL SCREENING MAMMOGRAM WITH CAD WITH 3D TOMOSYNTHESIS DATE: 06/21/2018 11:21 AM HISTORY: Routine screening. TECHNIQUE: Full-field digital craniocaudal and mediolateral oblique projections of both breasts were obtained. Low-dose full-field digital breast tomosynthesis examination was performed with 2D and 3D acquisitions. Examination is read in conjunction with computer aided detection. COMPARISON: May 2012 through July 2015 BREAST COMPOSITION: Scattered fibroglandular densities. FINDINGS: No suspicious mass, suspicious microcalcifications, or architectural distortion in either breast is identified. Since the prior study, there has been no significant interval change. The computer aided diagnosis detects no significant abnormality. OVERALL ASSESSMENT: BI-RADS Category 1 - Negative. IMPRESSION: No mammographic evidence of malignancy. RECOMMENDATIONS: Routine screening mammogram in one year. Dictated from: Dusty Carmichael Leticia Garland MD MAMMO ORDERABLES Final Resul t from Last 3 Months or Most Recently Relevant to Health Maintenance Insurance [facility] BL[facility] PREFERRED Care Teams Corporate Strategy Associate Relationship Specialty Start Date End Date Jaime Givens DO [address] [address] PCP - General Internal Medicine 06/14/18
--- OUTSIDE RECORDS SUMMARY | 2024-09-23 03:03 | XMS_ITS | Encounter Summary ---
Author Organization [facility] Address [address] [facility] [address] [place] [address] Phone Care Team Providers Care Professor Of Fine Art Name Role Phone Jaime Givens DO Primary Care Provider + [phone] Thad Arredondo MD Unavailable [phone] Michi De La Paz MD PhD Unavailable [phone] Bebeto Murillo MD Unavailable [phone] Daija Smart DO Unavailable [phone] Michelle Sherman NP Unavailable [phone] Amelia Garner NP Unavailable [phone] Encounter Details Date Type Department Care Team (Late st Contact Info) Description 09/07/2024 Telephone [facility] Surgery [address] [facility] [address] [place] [address] Yulisa Arce NP [address] [facility] [phone] [place] [address] Social History Tobacco Use Types Packs/Day Years Used Date Smoking Tobacco: Former Smokeless Tobacco: Never Comments:quit 1986 Alcohol Use Standard Drinks/Week Comments No 0 (1 standard drink = 0.6 oz pur e alcohol) [facility] Utilities Answer Date Recorded In the past 12 months has th e [employer], gas, oil, or water [employer] threatened to shut off services in your [...] often do you attend chur ch or buddhist services? 1 to 4 times per year 06/03/2024 Do you belong to any clubs o r organizations such as roman catholic groups, unions, fraternal or athletic groups, or [...] any time in the past 12 m [facility], were you homeless or living in a halfway (including now)? No 06/03/2024 Personal Safety Answer Date Recorded Have you ever been in or are you currently in a harmful physical or emotional relationship or is someone making you feel afraid or unsafe? Denies 05/31/2024 Comments No Sex and Gender Information Value Date Recorded Sex Assigned at Not on file Legal Sex Female 1:11 AM SHUTDOWN PLANNER Gender Identity Not on file Sexual Orientation Not on file Occupation Industry Job Start Date Job End Date Retired Not on file Not on file Not on file documented as of this encounter Miscellaneous Notes * Telephone Encounter - Jules Saleem - 09/07/2024 3:20 PM CST Patient Query: Was an attempt to transfer to the assigned clinical staff or backline? No Reason for call?: Patient had called on 07/18 to reschedule her return visit with PIPELINE WELDER Yulisa Arce, appts were cancelled, but never rescheduled, would someone be able to give the patient a call to be scheduled for her follow-up with mammogram. Who is the caller: Mary What is the best number for them to contact for a call back: [phone] DOWN PLANNER documented in this encounter Plan of Treatment Not on file documented as of this encounter Visit Diagnoses Not on filedocumented in this encounter Care Teams Professor Of Fine Art Relationship Specialty Start Date End Date Jaime Givens DO PCP - General 10/13/16 Thad Arredondo MD Consulting Physician Cardiology 05/14/18 Michi De La Paz MD PhD Referring Physician Cardiology 05/14/18 Bebeto Murillo MD Referring Physician Cardiology 09/09/19 Daija Smart DO [address] [facility] [place] [address] Geospatial Systems Integrator Obstetrics and Gynecology 09/04/23 Michelle Sherman NP [address] [facility] [address] Nurse Practitioner Obstetrics and Gynecology 12/22/23 Amelia Garner NP [address] [facility] [address] Nurse Practitioner Obstetrics and Gynecology 06/27/24 documented as of this encounter
--- OUTSIDE RECORDS SUMMARY | 2024-09-23 03:03 | XMS_ITS | Encounter Summary ---
Author Organization [facility] Address [address] [place] [address] Care Team Providers Care National Account Executive Name Role Phone Jaime Givens DO Primary Care Provider Encounter Details Date Type Department Care Team (Late st Contact Info) Description 10/21/2017 Lab Requisition [facility] [employer] [facility] [place] [address] [place] [address] Last Velásquez MD [address] [place] [address] Encounter for general adult medical examination without abnormal findings Social History Tobacco Use Types Packs/Day Years Used Date Smoking Tobacco: Former Cigarettes Q uit: 08/31/1986 Smokeless Tobacco: Former Alcohol Use Standard Drinks/Week Comments No 0 (1 standard drink = 0.6 oz pur e alcohol) Comments No Sex and Gender Information Value Date Recorded Sex Assigned at Not on file 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 Sex Female 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 Gender Identity Not on file Sexual Orientation Not on file Occupation Industry Job Start Date Job End Date Not on file Not on file Not on file Not on file documented as of this encounter Plan of Treatment Not on file documented as of this encounter Procedures Procedure Name Priority Date/Time Associated Diagnosis Comments CBC WITH DIFFERENTIAL Routine 10/21/2017 6:42 AM CHUTE LOADER Encounter for general adult medical examination without abnormal findings COMPREHENSIVE METABOLIC PANEL Routine 10/21/2017 6:42 AM CHUTE LOADER Encounter for general adult medical examination without abnormal findings documented in this encounter Results * (ABNORMAL) COMPREHENSIVE METABOLIC PANEL (10/21/2017 6:42 AM CHUTE LOADER) Pathologist [facility] SODIUM 138 136 - 145 mmol/L 10/21/2017 10:52 AM [facility] [employer] [facility] POTASSIUM 3.9 3.5 - 5.0 mmol/L 10/21/2017 10:52 AM [facility] [employer] [facility] CHLORIDE 98 98 - 107 mmol/L 10/21/2017 10:52 AM [facility] [employer] [facility] CO2 28 22 - 29 mmol/L 10/21/2017 10:52 AM [facility] [employer] [facility] CALCIUM 9.0 8.6 - 10.2 mg/dL 10/21/2017 10:52 AM [facility] [employer] [facility] BUN 19 8 - 23 mg/dL 10/21/2017 10:52 AM CHUTE LOADER [employer] [facility] CREATININE 0.88 0.51 - 0.95 mg/dL 10/21/2017 10:52 AM [facility] [employer] [facility] GLUCOSE 165(H) 74 - 99 mg/dL 10/21/2017 10:52 AM CHUTE LOADER [employer] [facility] TOTAL PROTEIN 6.5(L) 6.7 - 8.6 g/dL 10/21/2017 10:52 AM CHUTE LOADER [employer] [facility] ALBUMIN 3.5 3.5 - 5.2 g/dL 10/21/2017 10:52 AM [employer] [facility] BILIRUBIN TOTAL 0.6 0.2 - 1.1 mg/dL 10/21/2017 10:52 AM [facility] [employer] [facility] ALKALINE PHOSPHATASE 203(H) 35 - 104 U/L 10/21/2017 10:52 AM [employer] [facility] AST 29 <33 U/L 10/21/2017 10:52 AM [employer] [facility] ALT 30 <34 U/L 10/21/2017 10:52 AM [employer] [facility] GFR >60 >=60 mL/min/1.7 3 sq meter 10/21/2017 10:52 AM [facility] Comment: eGFR has not been validated for use in the elderly (> 70 years of age), women, patients with serious co-morbid conditions, or persons with extremes of body size or muscle mass and should also be interpreted with caution in patients with acute kidney failure, dialysis dependent patients, patients reporting exceptional dietary intake (e.g. vegetarian diet, high protein diets, creatine supplementation), and patients with severe liver disease. Based on National Kidney Disease Education Program If patient is , please refer to the GFR result. GFR, >60 >=60 mL/min/1.7 3 sq meter 10/21/2017 10:52 AM [facility] [employer] [facility] ANION GAP 12 8 - 16 mmol/L 10/21/2017 10:52 AM [facility] [employer] [facility] Blood Venipuncture / Unknown 10/21/2017 6:42 AM [facility] 10/21/2017 8:59 AM [facility] [employer] [facility] - 10/21/2017 10:52 AM [facility] Samples containing indocyanine green cause interferences on Total and/or Direct Bilirubin and must not be measured. Last Velásquez MD CHEMISTRY ORDERABLES Final R esult [facility] [employer] [facility]# [id number] [address] [place] [address] * (ABNORMAL) CBC WITH DIFFERENTIAL (10/21/2017 6:42 AM CHUTE LOADER) [facility] WBC 6.0 4.0 - 9.8 K/uL 10/21/2017 10:21 AM [facility] [employer] [facility] RBC 3.67(L) 3.90 - 4.90 M/uL 10/21/2017 10:21 AM [facility] [employer] [facility] HEMOGLOBIN 10.7(L) 11.8 - 14.8 g/dL 10/21/2017 10:21 AM [facility] [employer] [facility] HEMATOCRIT 35.0(L) 35.5 - 44.0 % 10/21/2017 10:21 AM [facility] [employer] [facility] MCV 95.4 82.0 - 99.0 fL 10/21/2017 10:21 AM [facility] [employer] [facility] MCH 29.2 27.2 - 32.6 pg 10/21/2017 10:21 AM [employer] [facility] MCHC 30.6(L) 31.5 - 35.5 g/dL 10/21/2017 10:21 AM CHUTE LOADER [employer] [facility] RDW 15.2(H) 11.5 - 14.5 % 10/21/2017 10:21 AM [employer] [facility] RDW-STDEV 52.6(H) 37.1 - 48.7 fL 10/21/2017 10:21 AM [employer] [facility] PLATELETS 292 140 - 350 K/uL 10/21/2017 10:21 AM [employer] [facility] MPV 10.6 9.3 - 12.4 fL 10/21/2017 10:21 AM [employer] [facility] NEUTROPHILS 60 % 10/21/2017 10:21 AM [employer] [facility] LYMPHOCYTES 23 % 10/21/2017 10:21 AM [employer] [facility] MONOCYTES 12 % 10/21/2017 10:21 AM [employer] [facility] EOSINOPHILS 3 % 10/21/2017 10:21 AM [employer] [facility] BASOPHILS 1 % 10/21/2017 10:21 AM [employer] [facility] IMMATURE GRANULOCYTES 1 % 10/21/2017 10:21 AM [employer] [facility] Comment:IG (Immature Granulo cyte) count includes Metamyelocytes, Myelocytes, and Promyelocytes NEUTROPHIL ABSOLUTE 3.58 1.90 - 7.00 K/uL 10/21/2017 10:21 AM [employer] [facility] LYMPHOCYTE ABSOLUTE 1.38 0.70 - 4.50 K/uL 10/21/2017 10:21 AM [employer] [facility] MONOCYTE ABSOLUTE 0.73 0.10 - 1.30 K/uL 10/21/2017 10:21 AM [employer] [facility] EOSINOPHIL ABSOLUTE 0.18 0.00 - 0.70 K/uL 10/21/2017 10:21 AM [employer] [facility] BASOPHILS ABSOLUTE 0.03 0.00 - 0.20 K/uL 10/21/2017 10:21 AM [employer] [facility] IMMATURE GRANULOCYTES ABSOLUTE 0.06(H) 0.00 - 0.03 K/uL 10/21/2017 10:[address] [facility] Blood Venipuncture / Unknown 10/21/2017 6:42 AM CHUTE LOADER 10/21/2017 8:59 AM CHUTE LOADER us Last Velásquez MD HEMATOLOGY ORDERABLES Final Result [facility] CLIA# [id number] [address] [facility] [place] [address] documented in this encounter Visit Diagnoses Diagnosis Encounter for general adult medical examination without abnormal findings Routine general medical examination at a health care facility documented in this encounter Care Teams National Account Executive Relationship Specialty Start Date End Date Jaime Givens DO [address] [facility] [address] [place] [address] PCP - General Internal Medicine 06/14/18 documented as of this encounter
--- OUTSIDE RECORDS SUMMARY | 2024-09-23 03:03 | XMS_ITS | Encounter Summary ---
Author Organization [facility] Address [address] [place] [address] Care Team Providers Care Project Architect Name Role Phone Jaime Givens Primary Care Provider Encounter Details Date Type Department Care Team (Late st Contact Info) Description 11/03/2017 Lab Requisition [facility] [place] [address] [place] [address] Last Velásquez MD [address] [place] [address] Encounter for general adult medical [...] on file Legal Sex Female 3:21 AM COMMUNITY SPORTS COORDINATOR Gender Identity Not on file Sexual Orientation Not on file Occupation Industry Job Start Date Job End Date Not on file Not on file Not on file Not on file documented as of this encounter Plan of Treatment Not on file documented as of this encounter Procedures Procedure Name Priority Date/Time Associated Diagnosis Comments BRAIN NATRIURETIC PEPTIDE, BNP OR PROBNP Routine 11/03/2017 6:36 AM COMMUNITY SPORTS COORDINATOR Encounter for general adult medical examination without abnormal findings BASIC METABOLIC PANEL Routine 11/03/2017 6:36 AM COMMUNITY SPORTS COORDINATOR Encounter for general adult medical examination without abnormal findings documented in this encounter Results * (ABNORMAL) BASIC METABOLIC PANEL (11/03/2017 6:36 AM COMMUNITY SPORTS COORDINATOR) SODIUM 141 136 - 145 mmol/L 11/03/2017 10:39 AM [facility] Primary Data SERVICES - [facility] POTASSIUM 3.9 3.5 - 5.0 mmol/L 11/03/2017 10:39 AM [facility] LABORATORY SERVICES - [facility] CHLORIDE 102 98 - 107 mmol/L 11/03/2017 10:39 AM [facility] Primary Data SERVICES - [facility] CO2 25 22 - 29 mmol/L 11/03/2017 10:39 AM COMMUNITY SPORTS COORDINATOR Primary Data SERVICES - [facility] CALCIUM 9.2 8.6 - 10.2 mg/dL 11/03/2017 10:39 AM [facility] - [facility] BUN 19 8 - 23 mg/dL 11/03/2017 10:39 AM [facility] Primary Data SERVICES - [facility] CREATININE 0.92 0.51 - 0.95 mg/dL 11/03/2017 10:39 AM [facility] [employer] LABORATORY [facility] - . [facility] GLUCOSE 134(H) 74 - 99 mg/dL 11/03/2017 10:39 AM COMMUNITY SPORTS COORDINATOR Primary Data [facility] GFR >60 >=60 mL/min/1.7 3 sq meter 11/03/2017 10:39 AM COMMUNITY SPORTS COORDINATOR Primary Data SERVICES - [facility] Comment: eGFR has not been validated for [...] GFR, >60 >=60 mL/min/1.7 3 sq meter 11/03/2017 10:39 AM [facility] SERVICES - . [facility] ANION GAP 14 8 - 16 mmol/L 11/03/2017 10:39 AM [facility] Blood Venipuncture / Unknown 11/03/2017 6:36 AM COMMUNITY SPORTS COORDINATOR 11/03/2017 9:14 AM COMMUNITY SPORTS COORDINATOR Last Velásquez MD CHEMISTRY ORDERABLES Final R esult [facility]# [id number] [address] [place] [address] * (ABNORMAL) BRAIN NATRIURETIC PEPTIDE, BNP OR PROBNP (11/03/2017 6:36 AM COMMUNITY SPORTS COORDINATOR) PROBNP, N TERMINAL 349(H) <124 pg/mL 11/03/2017 10:39 AM COMMUNITY SPORTS COORDINATOR [facility] [employer] [facility] Comment: Reference values for screening purposes based on agronomy research manager's recommendation: Patients less than 75 years: <125 pg/mL Patients 75 years and older: <450 pg/mL Reference values for determination of acute congestive heart failure in dyspneic patients based on PRIDE study (Am J Cardiol 2005;95:948): Patients less than 50 years: <450 pg/mL (Negative predictive value= 99%) Patients 50 years and older: <900 pg/mL (Negative predictive value= 92%) Rule out cutpoint, all ages: <300 pg/mL (Negative predictive value= 99%) Blood Venipuncture / Unknown 11/03/2017 6:36 AM COMMUNITY SPORTS COORDINATOR 11/03/2017 9:14 AM COMMUNITY SPORTS COORDINATOR Last Velásquez MD CHEMISTRY ORDERABLES Final R esult Performing Organization Address City/[facility]/ZIP Co de Phone Number [facility]# [id number] [address] [place] [address] documented in this encounter Visit Diagnoses Diagnosis Encounter for general adult medical examination without abnormal findings Routine general medical examination at a health care facility documented in this encounter Care Teams Project Architect Relationship Specialty Start Date End Date Jaime Givens DO [address] [facility] [address] [place] [address] PCP - General Internal Medicine 06/14/18 documented as of this encounter
--- OUTSIDE RECORDS SUMMARY | 2024-09-23 03:03 | XMS_ITS | Referral Summary ---
Author Organization [facility] Address [address] [place] [address] Care Team Providers Care Hose Tester Name Role Phone Jaime Givens DO Primary Care Provider + [phone] Thad Arredondo MD Unavailable [phone] Michi De La Paz MD PhD Unavailable [phone] Bebeto Murillo MD Unavailable [phone] Daija Smart DO Unavailable [phone] Michelle Sherman CLERK SUPERVISOR Unavailable [phone] Amelia Garner NP Unavailable [phone] Encounters Date Type Department Care Team Description 09/20/2024 Orders Only [facility] Scanning, Provider 09/20/[address] [facility] Advanced Medicine 8th [place] [address] [place] [address] Bebeto Murillo MD over due echo 09/08/[address] [facility] [address] [facility] Floor 8 [place] [address] Rosa Isela Mills CMA 09/07/[address] [facility] [address] [facility] Floor 8 [place] [address] Yulisa Arce NP 08/25/[address] [facility] [address] [facility] Floor 6 [place] [address] Gin Jaramillo 08/12/[address] [facility] Medicine 8th [place] [address] [place] [address] Martita Munoz RN 08/11/2024 Orders Only [facility] Scanning, Provider 08/04/[address] [facility] [address] [facility] Medicine 8th [place] [address] [place] [address] Bebeto Murillo MD 08/02/2024 Orders Only [facility] Scanning, Provider 07/26/[address] [facility] [address] [place] [address] 8th [place] [address] [place] [address] Bebeto Murillo MD follow up labs 07/26/2024 2:15 PM CREDIT CASHIER Telemedicine [facility] [address] [place] [address] 8th [place] [address] [place] [address] Bebeto Murillo MD Chronic heart failure with preserved ejection fraction (CMS/HCC) (HCC) (Primary Dx); S/P Maze operation for atrial fibrillation; Pleural effusion 07/22/[address] [facility] [address] [place] [address] 8th [place] [address] [place] [address] Ashley Samuels update 07/18/[address] [facility] [address] [facility] Floor 8 [place] [address] Yulisa Arce NP 07/13/[address] [facility] [address] Floor 6 [place] [address] Mirian Dennis 06/30/[address] [facility] [address] [facility] Floor 8 [place] [address] Yulisa Arce NP 06/30/[address] [facility] [address] [facility] Floor 8 [place] [address] Yulisa Arce NP 06/29/2024 SHOP/CHAP Subsequent Outreach [facility] CASE [facility]NAGEMENT 1 [place] [address] Kavya Hall RN 06/28/2024 Orders Only [address] Advanced Medicine 8th [place] [address] [place] [address] Martita Munoz RN 06/28/[address] [facility] 8th [place] [address] [place] [address] Bebeto Murillo MD patient assistance with medication costs 06/28/2024 Orders Only [address] [facility] 8th [place] [address] [place] [address] Martita Munoz RN 06/28/2024 1:58 PM CDT - 06/28/2024 11:59 PM CDT Hospital Encounter [facility] [address] [place] [address] Pleural effusion Discharge Disposition: Discharge to home or self care 06/28/2024 Orders Only [address] [facility] 8th [place] [address] [place] [address] Bebeto Murillo MD Pleural effusion (Primary Dx) 06/28/2024 2:15 PM CDT Office Visit [address] Advanced [address] [place] [address] [place] [address] Bebeto Murillo MD Heart failure with preserved ejection fraction, unspecified HF chronicity (HCC) (Primary Dx); Hypertension, essential 06/23/2024 SHOP/CHAP Subsequent Outreach [facility]GEMENT 1 [place] [address] Kavya Hall, RN from Last 3 Months Allergies Active Allergy Reactions Criticality Noted Date [...] Administer 1 spray into each nostril daily 017 Active clotrimazole-be tamethasone (LOTRISONE) cream Apply 1 application topically as needed (Rash) 0 018 Active betamethasone dipropionate (DIPROLENE) 0.05 % cream Apply 1 application topically as needed for rash 0 018 Active ketoconazole (NIZORAL) 2 % cream Apply 1 application topically as needed for rash Active OneTouch Verio test strips strip USE TO TEST BS TID Active prochlorperazin e (COMPAZINE) 5 mg tablet every 6 (six) hours as needed Active cholecalciferol (VITAMIN D-3) 50,000 unit capsule Take 1 capsule (50,000 Units total) by mouth once a week On 021 Active dicyclomine (BENTYL) 20 mg tablet Take [...] TABLET BY MOUTH DAILY 90 tablet 3 024 Active furosemide (LASIX) 40 mg tablet Take 1 tablet (40 mg total) by mouth daily One tab per day per notes 07/22/2024 90 tablet 3 Active aspirin 325 mg tablet Take 325 [...] well so needs to be transferred to [facility] for cardiology. Given progressive SOB and decreasing Hgb, felt unsafe to d/c - PPI BID - trend CBC - give IV dextran x1 - cont PO iron - aT&S; transfuse <7 - on transfer list to [facility] for scope with cardiology clearance (HFpEF) heart [...] GDMT lisinopril, lasix, paulina Follows with Dr Chidi BUSTILLO (gastrointestinal bleeding) 05/26/2024 SOB (shortness of breath) [...] (07/25/2020): Added automatically from request for surgery [id number] Central corneal cloudiness of Yash OU 2019 [...] in CEIOL. Her retina provider Dr. Colunga ([facility]) plans to perform PRP OS prior to [...] eye. Assessment & Plan (07/23/2020 3:53 PM CREDIT CASHIER): Becoming visually significant OS. Toe abrasion 02/10/2020 [...] 80mg IV BID and metolazone -s/p thoracentesis 01/25() per IP -liver US without ascites - [...] heart failu re with preserved ejection fraction ([facility]) 10/13/2019 Assessment & Plan (01/31/2020 7:26 AM [...] Type 2 diabetes mellitus without complications ( [facility]) 10/19/2017 Chronic diastolic (congestive) heart failure Assessment [...] the setting of [place] -Discharged home on 2L NC on 01/30 -Continue SQ Heparin [...] weight loss -PT/OT Chronic anticoagulation 07/31/2017 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 7 Ulcer of toe ([facility]) 10/13/2016 Osteomyelitis 09/29/2016 Gangrene ([facility]) 09/29/2016 Cervical dysplasia 08/27/2016 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. I have asked her to return to [...] Hypertensive heart disease w ith heart failure (CMS/HCC) 10/19/2017 07/19/2019 Persistent atrial fibrillation 09/22/2017 07/19/2019 Social History Tobacco Use Types Packs/Day Years Used Date Smoking Tobacco: Former Smokeless Tobacco: Never Tobacco Cessation:Counseling Given: Not Answered Comments:quit 1986 Alcohol Use Standard Drinks/Week Comments No 0 (1 standard drink = 0.6 oz pur e alcohol) [facility] Utilities Answer Date Recorded In the past 12 months has th e Vtap, gas, oil, or water Lalina threatened to shut off services in your [...] week 06/03/2024 How often do you attend [facility] or [facility]? 1 to 4 times per year 06/03/2024 Do you belong to any clubs o r organizations such as zoroastrian groups, unions, fraternal or athletic groups, or [...] any time in the past 12 m [facility], were you homeless or living in a senior care (including now)? No 06/03/2024 Personal Safety Answer Date Recorded Have you ever been in or are you currently in a harmful physical or emotional relationship or is someone making you feel afraid or unsafe? Denies 05/31/2024 Comments No Sex and Gender Information Value Date Recorded Sex Assigned at Not on file Legal Sex Female 1:11 AM CREDIT CASHIER Gender Identity Not on file Sexual Orientation [...] 06/28/2024 2:17 PM CDT Plan of Treatment Not on file Procedures Procedure Name Priority Date/Time Associated Diagnosis Comments SCAN - RADIOLOGY/IMAGING 09/20/2024 BASIC METABOLIC PANEL Routine 08/11/2024 3:34 PM CREDIT CASHIER PRO B-TYPE NATRIURETIC PEPTIDE Routine 08/11/2024 3:34 PM CREDIT CASHIER SCAN - LABS 08/11/2024 SCAN - RADIOLOGY/IMAGING 08/02/2024 BASIC METABOLIC PANEL Routine 07/21/2024 3:34 PM CREDIT CASHIER Heart failure with preserved ejection fraction, unspecified [...] CREATININE RATIO, URINE Routine 10/11/2019 11:56 AM CREDIT CASHIER from Last 3 Months or Most Recently Relevant to Health Maintenance Results * SCAN - RADIOLOGY/IMAGING (09/20/2024) Anatomical Region Laterality Modality Other us Provider Scanning Final Result * (ABNORMAL) Pro B-type natriuretic peptide (08/11/2024 3:34 PM CREDIT CASHIER) NT PROBNP 457(H) <125 pg/mL [facility] 08/11/2024 3:34 PM CREDIT CASHIER 08/11/2024 3:34 PM CREDIT CASHIER Bebeto Murillo MD LAB BLOOD ORDERABLES F inal Result Performing Organization Address City/[facility]/ZIP Co de Phone Number [facility] [address] [address] [address] * Basic metabolic panel (08/11/2024 3:34 PM CREDIT CASHIER) Glucose 88 65 - 99 mg/dL [facility] Comment: ? Fasting reference interval BUN 18 7 - 25 mg/dL [facility] Creatinine 0.98 0.50 - 1.05 mg/dL [facility] Comment: Verified by repeat analysis. eGFR 63 > OR = 60 mL/min/1.7 3m2 [facility] BUN/creat ratio SEE NOTE: (calc) [facility] Comment: ?? Not Reported: BUN and Creatinine are within ?? reference range. ? Sodium 139 135 - 146 mmol/L [facility] Potassium, pl 4.2 3.5 - 5.3 mmol/L [facility] Chloride 103 98 - 110 mmol/L [facility] CO2 30 20 - 32 mmol/L [facility] Calcium 9.7 8.6 - 10.4 mg/dL [facility] 08/11/2024 3:34 PM CREDIT CASHIER 08/11/2024 3:34 PM CREDIT CASHIER Bebeto Murillo MD LAB BLOOD ORDERABLES F inal Result Performing Organization Address City/[facility]/ZIP Co de Phone Number [facility] [address] [place] [address] * SCAN - LABS (08/11/2024) Provider Scanning Final Result * SCAN - RADIOLOGY/IMAGING (08/02/2024) Anatomical Region Laterality Modality Other Provider Scanning Final Result * Basic metabolic panel (07/21/2024 3:34 PM CREDIT CASHIER) Glucose 89 65 - 99 mg/dL [facility] Comment: ? Fasting reference interval BUN 17 7 - 25 mg/dL [facility] Creatinine 0.84 0.50 - 1.05 mg/dL [facility] eGFR 76 > OR = 60 mL/min/1.7 3m2 [facility] BUN/creat ratio SEE NOTE: 6 - 22 (calc) [facility] Comment: ?? Not Reported: BUN and Creatinine are within ?? reference range. ? Sodium 139 135 - 146 mmol/L [facility] Potassium, pl 4.1 3.5 - 5.3 mmol/L [facility] Chloride 103 98 - 110 mmol/L [facility] CO2 30 20 - 32 mmol/L [facility] Calcium 9.7 8.6 - 10.4 mg/dL [facility] Blood 07/21/2024 3:34 PM CREDIT CASHIER 07/21/2024 3:34 PM CREDIT CASHIER us Bebeto Murillo MD LAB BLOOD ORDERABLES F inal Result [facility] [address] [place] [address] * X-ray chest 2 views (06/28/2024 2:02 [...] it. Electronically signed by: Jaime Herbert M.D. us Bebeto Murillo MD IMG XR PROCEDURES Mimi l Result * Colonoscopy (05/31/2024 5:14 PM CDT) Anatomical Region Laterality Modality Other Narrative Procedure Note Darleen aMy MD - 05/31/2024 5:14 PM CDT [facility] Patient Name: Gonzalez Tejeda Procedure Date: 05/31/2024 5:14 PM Date of : 1955 Admit Type: Inpatient Age: 69 Gender: Female Attending MD: Darleen May M.D. Room: [facility] ENDOSCOPY Note Status: Finalized Procedure: [...] scope was passed under direct vision.The CF [id number] endoscope was introduced through the anus [...] clip was successfully placed (MR conditional). Clip scientific writer: [employer]. There was no bleeding at the end of the procedure. The exam was otherwise without abnormality on direct and retroflexion views. Impression: - Hemorrhoids found on perianal exam. - Three 4 to 10 mm polyps in the transverse colonand in the ascending colon, removed with a cold snare. Resected and retrieved. Clip (MR conditional) was placed. Clip scientific writer: [employer]. - The examination was otherwise normal on [...] children were not included. ?? (Diabetes Care 31:0001-5517, 2008). ??The eAG is not equivalent to a fasting glucose. Blood 05/26/2024 1:24 PM CDT 05/26/2024 1:25 PM CDT us Anabelle Mckeon MD LAB BLOOD ORDERABLES Final R esult [facility] [address] [facility]. Department [email or web address] [address] * Screening Mammogram Bilateral W Jose (04/03/2023 2:45 PM CDT) Anatomical Region Laterality Modality Breast Bilateral Mammography Narrative 04/05/2023 9:52 AM CDT Mammogram Technique: Bilateral Digital Breast Tomosynthesis, Bilateral C-view 2D Screening mammogram. ??Views obtained: ??bilateral craniocaudal and bilateral mediolateral oblique. ??Computer Aided Detection was performed. Mammogram Findings: The present examination has been compared to prior imaging studies performed at [facility] on 12/31/2021, at [facility] on 10/09/2020, and at [place], [place] on 06/21/2018. There are scattered areas [...] compared to prior imaging studies performed at [facility] on 12/31/2021, at [facility] on 10/09/2020, and at [place], [place] on 06/21/2018. There are scattered areas of fibroglandular density. There is no suspicious abnormality in either breast. Impression: There is no mammographic evidence of malignancy. Annual screening mammography is recommended. OVERALL FINAL ASSESSMENT: BI-RADS CATEGORY 1: Negative. us Faiza Alberto NP IMG MAMMO PROCEDURES Fin al Result * (ABNORMAL) Lipid panel (01/15/2020 11:33 PM CDT) Cholesterol 129 30 - 199 mg/dL [facility] Comment: Interpretive Data Ages < or = [...] on 2018. Triglycerides 108 <=149 mg/dL [facility] Comment: Interpretive Data Ages [...] on 2018. LDL, calculated 78 <=129 mg/dL [facility] Comment: Interpretive Data Ages < or = [...] revised on 2018. Non-HDL Cholesterol 100 mg/dL [facility] Comment: Interpretive Data Ages < or = [...] last revised on 2018. Chol/HDL ratio 4 [facility] Blood specimen (specimen) 01/15/2020 11:33 PM CDT 01/15/2020 11:47 PM CDT us Carroll Osei MD LAB BLOOD ORDERABLES Fi nal Result [facility] [place] [address] * (ABNORMAL) Albumin Creatinine Ratio, Urine (10/11/2019 11:56 AM CREDIT CASHIER) Creatinine, ur 150 20 - 275 mg/dL [facility] Microalbumin, ur 66.0 See Note: mg/dL [facility] Comment: Reference Range: Reference Range Not established Verified by repeat analysis. Microalbumin/creat ratio 440(H) <30 mcg/mg creat [facility] Comment: The ADA defines abnormalities in albumin excretion as follows: Category ? Result (mcg/mg creatinine) Normal ?<30 Microalbuminuria ? 30-299 Clinical albuminuria ?? > OR = 300 The ADA recommends that at least two of three specimens collected within a 3-6 month period be abnormal before considering a patient to be within a diagnostic category. 10/11/2019 11:5 6 AM CREDIT CASHIER 10/11/2019 12:02 PM CREDIT CASHIER Narrative [facility] - 10/12/2019 6:06 PM CREDIT CASHIER FASTING:YES FASTING: YES Resulting Agency Comment Performing Organization Information: ?Site ID: [place] ?Name: [email or web address] ?Address: [address] [place] [address] [place] [address] ?Director: Al Sosa D.O., MPH us Gin Arenas NP LAB URINE ORDERABLES Final Res ult [place] Miles from Last 3 Months or Most Recently Relevant to Health Maintenance Insurance [facility] CHOICE [facility]US [facility] HMO/PPO Address: [address] [address] [place] [address] CHOICE [place]F [place] ANTH ACCESS MEDICARE [facility] Address: [address] [address] [place] [address] [facility] CHOICE [facility]US [facility] HMO/PPO Address: [address] [place] [address] CHOICE [facility] PPO [place] [facility] CHOICE PLUS [facility] HMO/PPO Address: [address] [address] [place] [address] MEDICARE [facility] MEDICARE [facility] MEDICARE [facility] MEDICARE [facility] Advance Directives For more information, please contact: [phone] Documents on File Type Date Recorded Patient Auditor Medical Claims Expl anation ADVANCE DIRECTIVE 10/23/2017 10:45 PM [...] 9:11 AM 01/19/2020 8:03 PM Care Teams Hose Tester Relationship Specialty Start Date End Date Jaime Givens DO PCP - General 10/13/16 Thad Arredondo MD Consulting Physician Cardiology 05/14/18 Michi De La Paz MD PhD Referring Physician Cardiology 05/14/18 Bebeto Murillo MD Referring Physician Cardiology 09/09/19 Daija Smart DO [address] [place] [id number] Coin Wrapping Machine Operator Obstetrics and Gynecology 09/04/23 Michelle Sherman, AZUL [address] [place] [id number] Nurse Practitioner Obstetrics and Gynecology 12/22/23 Amelia Garner NP [facility] [address] [place] [id number] Nurse Practitioner Obstetrics and Gynecology 06/27/24
== END 2024-09-21 15:41 | disposition home or self-care (01) ==
LOC: ANHGOSHLAB 15:42
PROVIDERS: PCP Internal Medicine; Visit Provider Internal Medicine
DX: D64.9 Anemia, unspecified (principal); E11.9 Type 2 diabetes mellitus without complications; Z79.4 Long term (current) use of insulin
CPT/HCPCS: 36415; 80053; 82728; 85025

== ENCOUNTER 2024-11-04 10:00 | Outpatient (RCR) | payer MEDICARE, SELFPAY ==
--- NOTE | 2024-09-20 17:18 | OPREHPOC ---
Outpatient Therapy Plan of Care This is a Multidisciplinary Plan of Care that may contain components documented by all disciplines (PT, OT, and ST.) PT Problem 1 PT Problem #1 Knowledge Deficit PT Goal 1 Goal / Goal Update [place] with HEP Target Visit 4 PT Problem 2 PT Problem #2 Impaired Strength PT Goal 1 Goal / Goal Update 1. Improve neftali hip flexion strength to 5/5to improve foot clearance with ambulation. 2. Improve neftali knee extension strength to 5/5 to improve stability with transfers Target Visit 10 PT Problem 3 PT Problem #3 Impaired Functional Mobility PT Goal 1 Goal / Goal Update Improve Tinetti balance score by 5 points to reduce fall risk Target Visit 10 PT Goal 2 Goal / Goal Update Improve 6 minute walk test to 900 feet to improve endurance and mobility for community ambulation Target Visit 10 PT Problem 4 PT Problem #4 Impaired Functional Mobility PT Goal 1 Goal / Goal Update Demonstrate ability to preform 5 sit to stands with use of neftali UE for improve strength and stability with functional transfers Target Visit 10
--- NOTE | 2024-09-20 17:18 | PTOPEVAL1 ---
Assessment and note entered by Jacob Cabrera, PT Evaluation Information Assessment Status Evaluation Diagnosis Muscle back spasm ICD-10 Condition Codes (PT) Abnormalities of gait and mobility R26.9 Onset October 2023 Subjective Information Reports that October 2023 she had a severe bout of anemia. She ended up hospitalized in May and spent over a week in the hospital. She also had a collapsed lung at this time and had a lot of difficulty getting around. She is currently feeling very weak but better than she was last month. Feels she is very short of breath and heavy footed. 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 She will occasionally have collapsing on her right leg. She would really like to work on leg and core strength and hopefully walk without the walker but she has been on it for a while. She has been using it around the house more and would like to only need it when going out at the least. 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 She enjoys walking and wants to improve her ability to walk distances and improve her standing time. Reported Pain Level Pain Score 2: Self Report Assessment PT Clinical Summary Patient presents with deconditioning, weakness, and decreased mobility with ADLs. Patient will benefit from skilled therapy to address these deficits. She will [id number] a comprehensive conditioning program encompassing strengthening and endurance training. Plan of Care Interventions Gait Training,Manual Therapy,Neuro Re-education, Therapeutic Activities,Therapeutic Exercise PT Services Indicated Yes Treatment Frequency and 2x/week for 10 visits Duration These treatments will address the objective and functional deficits as defined above. The patient will be advanced safely and appropriately in order for the patient to progress towards his/her prior level of function. Additional exercises will be introduced and as well as a comprehensive home exercise program upon discharge, if needed, ?to ensure carryover of functional gains achieved in the clinic. This treatment plan has been reviewed and agreement upon by the patient.
--- NOTE | 2024-10-04 14:15 | OTOPEVAL1 ---
Assessment and note entered by CATE Tristan/Guicho, CHT Evaluation Information Assessment Status Evaluation Diagnosis Pain in unspecified joint Subjective Information -Patient reports generalized joint pain. She reports neck, shoulder, elbow, wrist, and hand/ finger pain and muscle twitching in bilateral index fingers. She is right handed. -She reports after her PT session last week she experienced right wrist pain, 9/10 that was exacerbated by using her walker. She reports this high of pain is not typical. She states her wrist/ hand pain is usually 4-5/10, reports the pain is random and no particular activity causes the wrist/hand pain. She reports the pain is intermittent and occurs every couple of weeks . -She reports no UE pain walking in today. She is able to move all UE joints through normal ROM without pain. No muscle twitching noted today. Reported Pain Level Pain Score 0: Self Report Assessment OT Clinical Summary Patient referred to OT with dx of pain in unspecified joint. She presents today describing generalized intermittent joint pain. She also is reporting some intermittent finger twitching, which is also intermittent. This appears to be a 1st dorsal interossei spasm from her description. 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 weaker than normal as well as weak interossei muscles in the hands. Skilled OT indicated to improve functional strength of bilateral hands to reduce pain, reduce muscle spasms, and improve functional use of her hands for ADLs. Plan of Care Interventions Therapeutic Exercise,Hot Pack/Cold Pack OT Services Indicated Yes Treatment Frequency and 1x/week for 3 weeks Duration These treatments will address the objective and functional deficits as defined above. The patient will be advanced safely and appropriately in order for the patient to progress towards his/her prior level of function. Additional exercises will be introduced and as well as a comprehensive home exercise program upon discharge, if needed, ?to ensure carryover of functional gains achieved in the clinic. This treatment plan has been reviewed and agreement upon by the patient.
--- NOTE | 2024-10-04 14:15 | OPREHPOC ---
Outpatient Therapy Plan of Care This is a Multidisciplinary Plan of Care that may contain components documented by all disciplines (PT, OT, and ST.) PT Problem 1 PT Problem #1 Knowledge Deficit PT Goal 1 Goal / Goal Update [place] with HEP Target Visit 4 PT Problem 2 PT Problem #2 Impaired Strength PT Goal 1 Goal / Goal Update 1. Improve neftali hip flexion strength to 5/5to improve foot clearance with ambulation. 2. Improve neftali knee extension strength to 5/5 to improve stability with transfers Target Visit 10 PT Problem 3 PT Problem #3 Impaired Functional Mobility PT Goal 1 Goal / Goal Update Improve Tinetti balance score by 5 points to reduce fall risk Target Visit 10 PT Goal 2 Goal / Goal Update Improve 6 minute walk test to 900 feet to improve endurance and mobility for community ambulation Target Visit 10 PT Problem 4 PT Problem #4 Impaired Functional Mobility PT Goal 1 Goal / Goal Update Demonstrate ability to preform 5 sit to stands with use of neftali UE for improve strength and stability with functional transfers Target Visit 10 OT Problem 1 OT Problem #1 Knowledge Deficit OT Goal 1 Goal / Goal Update Patient to be independent with instructed materials. 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 - improve left and from 32 to 42 lbs. Target Visit 3 OT Goal 2 Goal / Goal Update Patient to be independent with shoulder, elbow, and wrist strengthening HEP. Target Visit 3
--- NOTE | 2024-10-06 14:14 | PCPTNOTE ---
Patient called & cancelled scheduled appointment this date due to twisting her knee and wanting to stay off of it.
--- NOTE | 2024-10-12 12:13 | PCPTNOTE ---
Patient canceled therapy this date but did not leave a reason.
--- NOTE | 2024-10-19 09:26 | PCPTNOTE ---
Patient left a voicemail to cancel therapy this date due to weather.
--- NOTE | 2024-10-24 12:42 | OTOPDC ---
Assessment and note entered by William Silva, OTR/L, CHT OT Discharge Notification 10/24/24 OT Clinical Summary Patient called and cancelled her remaining OT appointments. She did not want to reschedule them. Patient was only seen for the initial evaluation. No follow up appointments were completed. D/C OT with goals not addressed. Thank you for this referral.
--- NOTE | 2024-11-01 13:46 | PCPTNOTE ---
Patient called to cancel due to recent eye procedure and not being able to drive.
--- NOTE | 2024-11-02 13:50 | PCPTNOTE ---
Patient called to cancel due to not being able to drive because of recent eye procedure.
--- NOTE | 2024-11-03 14:09 | PCPTNOTE ---
Patient called to cancel due to not being able to drive because of recent eye procedure.
--- NOTE | 2024-11-04 12:34 | OPREHPOC ---
Outpatient Therapy Plan of Care This is a Multidisciplinary Plan of Care that may contain components documented by all disciplines (PT, OT, and ST.) PT Problem 1 PT Problem #1 Knowledge Deficit PT Goal 1 Goal / Goal Update [place] with HEP Target Visit 4 Progress Met PT Problem 2 PT Problem #2 Impaired Strength PT Goal 1 Goal / Goal Update 1. Improve neftali hip flexion strength to 5/5to improve foot clearance with ambulation. 2. Improve neftali knee extension strength to 5/5 to improve stability with transfers Target Visit 20 Progress Partially Met PT Problem 3 PT Problem #3 Impaired Functional Mobility PT Goal 1 Goal / Goal Update Improve Tinetti balance score by 5 points to reduce fall risk -Improved by 3 points Target Visit 20 Progress Partially Met PT Goal 2 Goal / Goal Update Improve 6 minute walk test to 900 feet to improve endurance and mobility for community ambulation -Improved by 100 feet Target Visit 20 Progress Partially Met PT Problem 4 PT Problem #4 Impaired Functional Mobility PT Goal 1 Goal / Goal Update Demonstrate ability to preform 5 sit to stands with use of neftali UE for improve strength and stability with functional transfers Target Visit 20 Progress Partially Met OT Problem 1 OT Problem #1 Knowledge Deficit OT Goal 1 Goal / Goal Update Patient to be independent with instructed materials. 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 - improve left and from 32 to 42 lbs. Target Visit 3 OT Goal 2 Goal / Goal Update Patient to be independent with shoulder, elbow, and wrist strengthening HEP. Target Visit 3
--- NOTE | 2024-11-04 12:34 | PTOPPROG ---
Assessment and note entered by Jacob Cabrera, PT Evaluation Information Assessment Status Progress Diagnosis Muscle back spasm ICD-10 Condition Codes (PT) Abnormalities of gait and mobility R26.9 Onset October 2023 Subjective Information Reports that overall she feels that therapy has helped a lot. Feels that she still needs improvement on her balance. She has been having trouble with her left knee which she feels is contributing. She has been inhibited from some of her standing activity due to the knee pain. Feels she has been moving much more freely but is not where she needs to be yet. Breathing has improved and she has been using her incentive spirometer. She had an eye injection last week which she is worried may contribute to her poor balance today. Assessment PT Clinical Summary Patient has seen improvement in outcome measures, endurance, and balance, but remains in high deficits with each. 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 SpO2 and endurance need to continue to be monitored. Plan of Care Interventions Gait Training,Manual Therapy,Neuro Re-education, Therapeutic Activities,Therapeutic Exercise PT Services Indicated Yes Treatment Frequency and 2x/week for 10 visits Duration These treatments will address the objective and functional deficits as defined above. The patient will be advanced safely and appropriately in order for the patient to progress towards his/her prior level of function. Additional exercises will be introduced and as well as a comprehensive home exercise program upon discharge, if needed, ?to ensure carryover of functional gains achieved in the clinic. This treatment plan has been reviewed and agreement upon by the patient.
--- NOTE | 2024-11-16 14:37 | PCPTNOTE ---
Patient reports she has pain so bad in her knees that she needs to cancel therapy. Patient states she is going to call her MD.
--- NOTE | 2024-11-28 14:35 | PCPTNOTE ---
Patient cancelled appointment stating she needed more time for her knees to heal.
--- NOTE | 2024-12-14 14:39 | PCPTNOTE ---
Patient called to cancel this date secondary to having too much pain.
== END 2024-12-19 23:59 | disposition home or self-care (01) ==
LOC: ANHGOSHPT 10:00
PROVIDERS: PCP Internal Medicine; Visit Provider Internal Medicine
DX: R26.9 Unspecified abnormalities of gait and mobility (principal); R53.83 Other fatigue; M62.830 Muscle spasm of back; M25.50 Pain in unspecified joint
CPT/HCPCS: 36415; 80053; 82728; 85025; 97110; 97140; 97161; 97165; 97530

== ENCOUNTER 2024-12-28 14:00 | Outpatient (RCR) | payer MEDICARE, SELFPAY ==
--- NOTE | 2024-12-21 10:27 | PCPTNOTE ---
The treatment documented on this account is a continuation of the treatment documented on visit number [id number]. Please see documentation on both accounts to view progress. The Plan of Care has been transitioned and updated within the new V#. I have addressed and agree with the discipline specific Problems, Interventions, and Goals for the current certification period. Completed interventions, outcomes, and problems have been marked as Inactive to facilitate the copying of the Care plan routine for recurring accounts.
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
--- NOTE | 2024-12-30 16:47 | PTOPDC ---
Assessment and note entered by Jacob Cabrera, PT Evaluation Information Assessment Status Discharge - Pt Not Present Diagnosis Muscle back spasm ICD-10 Condition Codes (PT) Abnormalities of gait and mobility R26.9 Onset October 2023 Subjective Information Spoke with patient on phone about attendance. Patient has been having trouble with both eyes and knees limiting her ability to attend. She reports understanding of home exercise plan and will continue. Assessment PT Clinical Summary Patient to be discharged at this time per cancellation policy. Over current plan of care patient had a cumulative 15 cancellations. Please refer to last treatment note for discharge status. Plan of Care PT Services Indicated Yes
== END 2025-01-02 11:59 | disposition home or self-care (01) ==
LOC: ANHGOSHPT 14:00
PROVIDERS: PCP Internal Medicine; Visit Provider Internal Medicine
DX: R26.9 Unspecified abnormalities of gait and mobility (principal); R53.83 Other fatigue; M62.830 Muscle spasm of back; M25.50 Pain in unspecified joint
CPT/HCPCS: 97110

== ENCOUNTER 2025-04-11 18:02 | Emergency (ER) | payer OTHER, MEDICARE, SELFPAY ==
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
--- OUTSIDE RECORDS SUMMARY | 2025-04-11 18:04 | XMS_ITS | Encounter Summary ---
Author Organization [facility] Address [address] [place] [address] Care Team Providers Care Neon Glass Blower Name Role Phone Jaime Givens DO Primary Care Provider Encounter Details Date Type Department Care Team (Late st Contact Info) Description 11/06/2017 Lab Requisition [facility] Laboratory Services [address] [facility] [address] [place] [address] Last Velásquez MD [address] [place] [address] Essential (primary) hypertension Social History Tobacco Use Types Packs/Day Years Used Date Smoking Tobacco: Former Cigarettes Q uit: 08/31/1986 Smokeless Tobacco: Former Alcohol Use Standard Drinks/Week Comments No 0 (1 standard drink = 0.6 oz pur e alcohol) Comments No Sex and Gender Information Value Date Recorded Sex Assigned at Not on file Legal Sex Female 3:21 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 Gender Identity Not on file Sexual Orientation Not on file Occupation Industry Job Start Date Job End Date Not on file Not on file Not on file Not on file documented as of this encounter Plan of Treatment Not on file documented as of this encounter Visit Diagnoses Diagnosis Essential (primary) hypertension Unspecified essential hypertension documented in this encounter Care Teams Neon Glass Blower Relationship Specialty Start Date End Date Jaime Givens DO [address] [place] [id number] PCP - General Internal Medicine 06/14/18 documented as of this encounter
--- OUTSIDE RECORDS SUMMARY | 2025-04-11 18:04 | XMS_ITS | Encounter Summary ---
Author Organization [facility] Address [address] [place] [address] Phone Care Team Providers Care Heating And Ventilating Drafter Name Role Phone Jaime Givens DO Primary Care Provider + [phone] Thad Arredondo MD Unavailable [phone] Michi De La Paz MD PhD Unavailable [phone] Bebeto Murillo MD Unavailable [phone] Daija Smart DO Unavailable [phone] Michelle Sherman DRUG SAFETY ASSISTANT Unavailable [phone] Amelia Garner NP Unavailable [phone] Kavitha Hurst DRUG SAFETY ASSISTANT Unavailable [phone] Encounter Details Date Type Department Care Team (Late st Contact Info) Description 04/10/2025 Results Follow-Up [facility] Cardiology [address] [address] [address] [place] [address] [place] [address] Michi De La Paz MD PhD [address] [facility] [facility] [address] [place] [address] ECG 12 lead Social History Tobacco Use Types Packs/Day Years Used Date Smoking Tobacco: Former Smokeless Tobacco: Never Comments:quit 1986 Alcohol Use Standard Drinks/Week Comments No 0 (1 standard drink = 0.6 oz pur e alcohol) [facility] Utilities Answer Date Recorded In the past 12 months has th e electric, gas, oil, or water company threatened to shut off services in your home? No 06/03/2024 Social Connection and Isolation Panel Answer Date Recorded In a typical week, how many times do you talk on the phone with family, friends, or neighbors? More than three times a week 06/03/2024 How often do you get togethe r with friends or relatives? Twice a week 06/03/2024 How often do you attend chur ch or sikh services? 1 to 4 times per year 06/03/2024 Do you belong to any clubs o r organizations such as gnosticist groups, unions, fraternal or athletic groups, or [...] any time in the past 12 m [facility], were you homeless or living in a long-term (including now)? No 06/03/2024 Personal Safety Answer Date Recorded Have you ever been in or are you currently in a harmful physical or emotional relationship or is someone making you feel afraid or unsafe? 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 Gender Identity Not on file Sexual Orientation Not on file Occupation Industry Job Start Date Job End Date Retired Not on file Not on file Not on file documented as of this encounter Plan of Treatment Not on file documented as of this encounter Visit Diagnoses Not on filedocumented in this encounter Care Teams Heating And Ventilating Drafter Relationship Specialty Start Date End Date Jaime Givens DO PCP - General 10/13/16 Thad Arredondo MD Consulting Physician Cardiology 05/14/18 Michi De La Paz MD PhD Referring Physician Cardiology 05/14/18 Bebeto Murillo MD Referring Physician Cardiology 09/09/19 Daija Smart DO [address] [place] [id number] Process Manufacturing Engineer Obstetrics and Gynecology 09/04/23 Michelle Sherman NP [address] [place] [address] Nurse Practitioner Obstetrics and Gynecology 12/22/23 Amelia Garner NP [address] [place] [address] Nurse Practitioner Obstetrics and Gynecology 06/27/24 Kavitha Hurst NP [address] [place] [address] Nurse Practitioner Obstetrics and Gynecology 11/29/24 documented as of this encounter
--- OUTSIDE RECORDS SUMMARY | 2025-04-11 18:04 | XMS_ITS ---
Author Name Auto Generated, Auto Generated Organization [facility] Address [address] [place] [address] Phone [phone] Care Team Providers Care Sap Abap Developer Name Role Phone Last Velásquez Unavailable [phone] Functional Status No Results Mental Status No Results Allergies and Intolerances Name Onset Date Reaction Severity metoprolol (Allergy) ThuOct 19 17:36:00 EST 201 8 Entex LA (Allergy) ThuOct 19 17:36:00 EST 2018 Actifed (Allergy) ThuOct 19 17:35:00 EST 2018 nystatin (Allergy) ThuOct 19 17:35:00 EST 2018 doxycycline (Allergy) ThuOct 19 17:35:00 EST 20 18 flecainide (Allergy) ThuOct 19 17:35:00 EST 201 8 Medications Medication Directions Start Date End Date bisacodyl 10 mg rectal suppository 10mg SUPPOSITORY, RECTAL Rectal PRN 1 Time Daily constipation Sun Nov 01 20:00:00 2017Nov 03 01:00:00 EST 2017 Milk of Magnesia 400 mg/5 mL oral suspension 30mL SUSPENSION, ORAL (FINAL DOSE FORM) Oral PRN 1 Time Daily Constipation Sat Oct 31 16:00:00 2017Nov 03 01:00:00 EST 2017 lactulose 10 gram/15 mL oral solution 15mL SOLUTION, ORAL Oral PRN 2 Times Daily Until guest has bowel movement Sat Oct 31 19:00:00 2017Nov 03 01:00:00 EST 2017 carvedilol 3.125 mg tablet 3.125mg TABLE T Oral 2 Times Daily hold if pulse less than 55bpm. ThuOct 30 21:00:00 2017Nov 03 01:00:00 2017 Lantus Solostar U-100 Insulin 100 unit/mL (3 mL) subcutaneous pen 20 units INSULIN PEN (ML) Subcutaneous 1 Time Daily ThuOct 30 21:00:00 2017Nov 03 01:00:00 2017 metOLazone 5 mg tablet 5mg TABLET Oral 1 Time Daily for 7 Days Give 30 min prior to lasix ThuOct 31 08:00:00 2017Nov 02 11:48:00 2017 HumaLOG KwikPen (U-100) Insulin 100 unit/mL subcutaneous SSI INSULIN PEN (ML) Subcutaneous 3 Times Daily Sliding Scale Insulin: Blood Sugar < 60 or > 401 Notify MD;70-150, 0 Units;151-200, 5 Units;201-250, 10 Units;251-300, 15 Units;301-350, 20 Units;351-400, 25 Units;> 401, 30 Units;. ThuOct 27 01:00:00 2017Nov 03 01:00:00 2017 lisinopril 40 mg tablet 40mg TABLET Oral 1 Time Daily ThuOct 26 21:00:00 2017Nov 03 01:00:00 2017 ondansetron 8 mg disintegrating tablet 8mg TABLET,DISINTEGRATING Oral PRN Every 6 Hours Nausea, vomiting ThuOct 23 01:00:00 2017Nov 03 01:00:00 2017 multivitamin with minerals tablet 1 tab TABLET Oral 1 Time Daily ThuOct 21 09:00:00 2017Nov 03 01:00:00 2017 TUBErsol 5 tub. unit/0.1 mL intradermal injection solution 0.1 ml VIAL (ML) Intradermal 1 Time Weekly for 2 Weeks (PPD) 1st injection upon admission. Read between 48 and 72 hours and give 2nd injection 1 week after the 1st if result is negative. If positive result, proceed with chest x-ray to rule out active disease. ThuOct 21 15:00:00 2017Nov 03 01:00:00 2017 TUBErsol 5 tub. unit/0.1 mL intradermal injection solution Read Results VIAL (ML) Other 1 Time Weekly for 2 Weeks Read results between 48-72 hours after 1st and 2nd 1 week apart. If positive do chest x-ray to rule out active disease. ThuOct 23 15:00:00 2017Nov 03 01:00:00 2017 metFORMIN ER 1,000 mg tablet,extended release 24hr 1,000mg TABLET, EXTENDED RELEASE 24 HR Oral 1 Time Daily for 7 Days DM ThuOct 22 09:00:00 2017Oct 29 08:59:00 2017 lisinopril 20 mg tablet 20mg TABLET Oral 1 Time Daily HTN ThuOct 21 17:00:00 2017Oct 26 21:06:00 2017 metFORMIN 1,000 mg tablet 1,000mg TABLET Oral 2 Times Daily DM ThuOct 30 01:00:00 2017Nov 03 01:00:00 2017 fluconazole 150 mg tablet 150mg TABLET O ral 1 Time Daily for 1 Day ThuOct 22 09:00:00 2017Oct 23 08:59:00 2017 fluconazole 150 mg tablet 150mg TABLET O ral 1 Time Daily for 1 Day ThuOct 25 01:00:00 2017Oct 26 00:59:00 2017 Lantus Solostar U-100 Insulin 100 unit/mL (3 mL) subcutaneous pen 16 Units INSULIN PEN (ML) Subcutaneous 1 Time Daily ThuOct 21 19:00:00 2017Oct 30 12:09:00 2017 calcium carbonate 500 mg calcium (1,250 mg) chewable tablet 1-2tablets TABLET, CHEWABLE Oral PRN Every 6 Hours indigestion ThuOct 20 01:00:00 2017Oct 21 03:07:00 2017 ketoconazole 2 % topical cream as directed CREAM (GRAM) Topical 2 Times Daily for 7 Days ThuOct 21 19:00:00 2017Oct 28 18:59:00 2017 Lantus Solostar U-100 Insulin 100 unit/mL (3 mL) subcutaneous pen 16 Units INSULIN PEN (ML) Subcutaneous 1 Time Daily ThuOct 21 01:00:00 2017Oct 21 03:03:00 2017 HumaLOG KwikPen (U-100) Insulin 100 unit/mL subcutaneous SSI INSULIN PEN (ML) Subcutaneous 3 Times Daily Sliding Scale Insulin: Blood Sugar < 60 or > 401 Notify MD; 70-150 continue current orders;151-200, 3 Units;201-250, 6 Units;251-300, 9 Units;301-350, 12 Units;351-400, 15 Units;BS greater than 401,18 Units and Notify ThuOct 21 01:00:00 2017Oct 27 19:52:00 2018 Eyad Ramírezar U-100 Insulin 100 unit/mL (3 mL) subcutaneous pen 16 Units INSULIN PEN (ML) Subcutaneous 1 Time Daily ThuOct 21 21:00:00 2017Oct 21 18:23:00 2018 calcium carbonate 500 mg calcium (1,250 mg) chewable tablet 1-2tablets TABLET, CHEWABLE Oral PRN Every 6 Hours indigestion ThuOct 21 03:00:00 2017Nov 03 01:00:00 2018 acyclovir 400 mg tablet 400mg TABLET Ora l 3 Times Daily Simplex virus prophylaxis ThuOct 19 17:00:00 2017Nov 03 01:00:00 2017 furosemide 40 mg tablet 40mg TABLET Oral 1 Time Daily ThuOct 19 17:00:00 2017Nov 03 01:00:00 EST 2018 Wale Chewable Low Dose Aspirin 81 mg tablet 81mg TABLET, CHEWABLE Oral 1 Time Daily ThuOct 19 17:00:2017Nov 03 01:00:00 2018 spironolactone 25 mg tablet 12.5mg TABLE T Oral 1 Time Daily ThuOct 19 17:00:00 2017Nov 03 01:00:00 2018 amLODIPine 10 mg tablet 10mg TABLET Oral 1 Time Daily ThuOct 19 18:00:2017Oct 26 21:06:00 2018 bisacodyl 5 mg tablet,delayed release 2 tabs TABLET, DELAYED RELEASE (ENTERIC COATED) Oral 2 Times Daily Constipation ThuOct 19 18:00:2017Nov 03 01:00:00 2018 Senna Laxative-Stool Softener 8.6 mg-50 mg tablet 1 tablet TABLET Oral 1 Time Daily Constipation ThuOct 19 18:00:2017Nov 03 01:00:00 EST 2018 fluticasone 50 mcg/actuation nasal spray,suspension 1 spray SPRAY, SUSPENSION Intranasal 1 Time Daily ThuOct 19 18:00:00 2017Nov 03 01:00:00 EST 2018 HumaLOG KwikPen (U-100) Insulin 100 unit/mL subcutaneous SSI INSULIN PEN (ML) Subcutaneous 3 Times Daily Sliding Scale Insulin: Blood Sugar < 60 or > 401 Notify MD;140-175, 1 Units;176-200, 2 Units;201-250, 3 Units;251-299, 4 Units;300-350, 5 Units;351-400, 6 Units;. ThuOct 19 18:00:00 2017Oct 19 18:27:00 2017 HumaLOG KwikPen (U-100) Insulin 100 unit/mL subcutaneous SSI INSULIN PEN (ML) Subcutaneous 3 Times Daily Sliding Scale Insulin: Blood Sugar < 60 or > 401 Notify MD;140-175, 2 Units;176-200, 3 Units;201-250, 5 Units;251-300, 7 Units;. ThuOct 19 18:00:00 2017Oct 21 03:03:00 2017 HumaLOG KwikPen (U-100) Insulin 100 unit/mL subcutaneous SSI INSULIN PEN (ML) Subcutaneous 1 Time Daily Sliding Scale Insulin: Blood Sugar < 60 or > 401 Notify MD;140-175, 1 Units;176-200, 2 Units;201-250, 3 Units;251-299, 4 Units;. ThuOct 19 18:00:00 2017Oct 21 03:03:00 2017 Lantus Solostar U-100 Insulin 100 unit/mL (3 mL) subcutaneous pen 12 Units INSULIN PEN (ML) Subcutaneous 1 Time Daily ThuOct 19 18:00:00 2017Oct 19 19:51:00 2017 polyethylene glycol 3350 17 gram oral powder packet 17 grams POWDER IN PACKET (EA) Oral 1 Time Daily ThuOct 19 18:00:00 2017Nov 03 01:00:00 2017 Eliquis 5 mg tablet 5mg TABLET Oral 2 Ti mes Daily ThuOct 19 18:00:00 2017Nov 03 01:00:00 2017 acetaminophen 325 mg tablet 650mg TABLET Oral PRN Every 6 Hours Pain ThuOct 19 18:00:00 2017Nov 03 01:00:00 2017 oxyCODONE 5 mg tablet 5mg TABLET Oral SD N Every 4 Hours Pain ThuOct 19 18:00:00 2017Oct 21 03:05:00 2017 simethicone 80 mg chewable tablet 80mg TABLET, CHEWABLE Oral PRN 4 Times Daily ThuOct 19 18:00:00 2017Oct 20 06:29:00 2017 chlordiazepoxide-clidinium 5 mg-2.5 mg capsule 1 capsule CAPSULE Oral PRN 2 Times Daily ThuOct 19 01:00:00 2017Nov 03 01:00:00 2017 Lankim Terrellostar U-100 Insulin 100 unit/mL (3 mL) subcutaneous pen 12 Units INSULIN PEN (ML) Subcutaneous 1 Time Daily ThuOct 19 19:00:00 2017Oct 20 22:42:00 2017 oxyCODONE 5 mg tablet 5 mg 5mg TABLET Or al PRN Every 4 Hours Pain ThuOct 21 03:00:00 2017Nov 03 01:00:00 2017 Problems Active Concerns * Encounter for surgical aftercare following surgery on the circulatory system* Code: * Start Date: ThuOct 19 00:00:00 2017 * End Date: * Text: * Unspecified atrial fibrillation* Code: * Start Date: ThuOct 19 00:00:00 2017 * End Date: * Text: * Acute kidney failure, unspecified* Code: * Start Date: ThuOct 19 00:00:00 2017 * End Date: * Text: * Elevated white blood cell count, unspecified* Code: * Start Date: ThuOct 19 00:00:00 2017 * End Date: * Text: * Hypertensive heart disease with heart failure* Code: * Start Date: ThuOct 19 00:00:00 2017 * End Date: * Text: * Unspecified diastolic (congestive) heart failure* Code: * Start Date: ThuOct 19 00:00:00 2017 * End Date: * Text: * Type 2 diabetes mellitus without complications* Code: * Start Date: ThuOct 19 00:00:00 2017 * End Date: * Text: * Herpesviral infection, unspecified* Code: * Start Date: ThuOct 19 00:00:00 2017 * End Date: * Text: * Candidiasis of skin and nail* Code: * Start Date: ThuOct 19 00:00:00 2017 * End Date: * Text: * Generalized anxiety disorder* Code: * Start Date: ThuOct 19 00:00:00 2017 * End Date: * Text: * Venous insufficiency (chronic) (peripheral)* Code: * Start Date: ThuOct 19 00:00:00 2017 * End Date: * Text: * Body mass index [BMI] 50.0-59.9, adult* Code: * Start Date: ThuOct 21 00:00:00 2017 * End Date: * Text: Reason for Referral Past Medical History
--- OUTSIDE RECORDS SUMMARY | 2025-04-11 18:04 | XMS_ITS | Encounter Summary ---
Author Organization [facility] Address [address] [place] [address] Phone Care Team Providers Care Batch Tank Controller Name Role Phone Jaime Givens DO Primary Care Provider + [phone] Thad Arredondo MD Unavailable [phone] Michi De La Paz MD PhD Unavailable [phone] Bebeto Murillo MD Unavailable [phone] Daija Smart DO Unavailable [phone] Michelle Sherman AIRPLANE NAVIGATOR Unavailable [phone] Amelia Garner NP Unavailable [phone] Kavitha Hurst AIRPLANE NAVIGATOR Unavailable [phone] Encounter Details Date Type Department Care Team (Late st Contact Info) Description 04/10/2025 3:30 PM CDT Office Visit [facility] [address] [facility] [address] [place] [address] [place] [address] Michi De La Paz MD PhD [address] [facility] [address] [place] [address] Atrial fibrillation, unspecified type (HCC) (Primary Dx); Essential hypertension; Chronic diastolic heart failure (HCC); Hypertension, essential Social History Tobacco Use Types Packs/Day Years Used Date Smoking Tobacco: Former Smokeless Tobacco: Never Comments:quit 1986 Alcohol Use Standard Drinks/Week Comments No 0 (1 standard drink = 0.6 oz pur e alcohol) [facility] Utilities Answer Date Recorded In the past [...] often do you attend chur ch or restoration services? 1 to 4 times per year 06/03/2024 Do you belong to any clubs o r organizations such as episcopal groups, unions, fraternal or athletic groups, or [...] time in the past 12 m [place], were you homeless or living in a prison (including now)? No 06/03/2024 Personal Safety Answer Date Recorded Have you ever been in or are you currently in a harmful physical or emotional relationship or is someone making you feel afraid or unsafe? Denies 05/31/2024 Comments No Sex and Gender Information Value Date Recorded Sex Assigned at Not on file Legal Sex Female 1:11 AM PRIVATE 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 SURVEILLANCE Gender Identity Not on file Sexual Orientation Not on file Occupation Industry Job Start Date Job End Date Retired Not on file Not on file Not on file documented as of this encounter Last Filed Vital Signs Vital Sign Reading Time Taken Comments Blood Pressure 145/54 04/10/2025 3:58 PM CDT Pulse 75 04/10/2025 3:43 PM CDT Temperature - - Respiratory Rate - - Oxygen Saturation 97% 04/10/2025 3:43 PM CDT Inhaled Oxygen Concentration - - Weight - - Height 182.9 cm (6') 04/10/2025 3:43 PM CDT Body Mass Index - - documented in this encounter Ordered Prescriptions Prescription Sig Dispense Quantity Refills Last Filled Start Date End Date dapagliflozin propanediol (FARXIGA) 10 mg tabletIndications: Chronic diastolic heart failure (HCC) Take 1 tablet (10 mg total) by mouth daily 30 tablet 11 04/10/2025 amLODIPine (NORVASC) 5 mg tabletIndications: Essential hypertension Take 2 tablets (10 mg total) by mouth daily 180 tablet 3 04/10/2025 documented in this encounter Progress Notes * Michi De La Paz MD PhD - 04/10/2025 3:30 PM CDT Patient ID Miley Glez 1955 is a 69 y.o. female following up [facility] on 04/10/2025. HISTORY Chief Complaint No chief complaint on file. HPI Ms. Glez returns for follow-up of atrial fibrillation treated with Hess Maze surgery in 2018. 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 In the wake of her cardiac surgery, she began to have episodic SVT that has remained short in duration but consistent. It is much less noticeable to her in the recent past. She has been struggling with chronic diastolic heart failure. She had a thoracentesis in the recent past. Her right pleural effusion has been stable recently. 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 She had severe anemia. The source of this was not discovered. Her overall feeling has improved markedly with normalization of her hemoglobin through iron supplementation. She did not require a transfusion. Allergies Allergies Allergen Reactions Actifed Sinus Daytime, Night Swelling Augmentin [Amoxicillin-Pot Clavulanate] Swelling Throat swelling with clavulanate Metoprolol Rash Nystatin Rash Gets a rash with topical products only; able to tolerate oral Nystatin Entex Hc [Efuutsrpeiftj-Bsycngenzmw-Wl] Unknown Racing heart Phenylpropanolamine Unknown Phenylpropanolamine Hcl Unknown Triprolidine Vioxx [Rofecoxib] Unknown Heart problems Atorvastatin Joint pain Clindamycin Nausea only Doxycycline Unknown Flecainide Other (See comments) EKG changes Pseudoephedrine Tannate Palpitations Medications Charted: Current Outpatient Medications Medication Sig Dispense Refill acyclovir (ZOVIRAX) 200 mg capsule Take 1 capsule (200 mg total) by mouth 5 (five) times a day Mustkeep 11/07/24 appointment for additional refills. 150 capsule 0 amLODIPine (NORVASC) 5 mg tablet TAKE 1 TABLET BY MOUTH DAILY 90 tablet 3 betamethasone dipropionate (DIPROLENE) 0.05 % cream Apply 1 application topically as needed for rash 0 cholecalciferol (VITAMIN D-3) 50,000 unit capsule Take 1 capsule (50,000 Units total) by mouth oncea week On clotrimazole-betamethasone (LOTRISONE) cream Apply 1 application topically as needed (Rash) 0 cyanocobalamin (Vitamin B-12) 1,000 mcg tablet Take 1 tablet (1,000 mcg total) by mouth daily cyclobenzaprine (FLEXERIL) 10 mg tablet Take 1 tablet (10 mg total) by mouth 3 (three) times a day as needed for muscle spasms (Back Pain) dicyclomine (BENTYL) 20 mg tablet Take 1 tablet (20 mg total) by mouth 3 (three) times a day as needed fluticasone (FLONASE) 50 mcg/actuation nasal spray Administer 1 spray into each nostril daily furosemide (LASIX) 40 mg tablet Take 1 tablet (40 mg total) by mouth daily One tab per day per notes 07/22/2024 90 tablet 3 insulin aspart (NovoLOG) 100 unit/mL insulin pen Inject subcutaneously per sliding scale BG 140-175 = 5 units BG 175-250 = 10 units BG >250 units = 15 units insulin degludec (TRESIBA) 200 unit/mL (3 mL) pen for injection Inject 0.16 mL (32 Units total) under the skin nightly ketoconazole (NIZORAL) 2 % cream Apply 1 application topically as needed for rash metFORMIN (GLUCOPHAGE) 1,000 mg tablet Take 1 tablet (1,000 mg total) by mouth 2 (two) times a day OneTouch Verio test strips strip USE TO TEST BS TID pravastatin (PRAVACHOL) 10 mg tablet Take 1 tablet (10 mg total) by mouth nightly 30 tablet 0 prochlorperazine (COMPAZINE) 5 mg tablet every 6 (six) hours as needed spironolactone (ALDACTONE) 25 mg tablet Take 1 tablet (25 mg total) by mouth daily 30 tablet 11 triamcinolone (KENALOG) 0.025 % cream Apply 1 Application topically 2 (two) times a day as needed for rash No current facility-administered medications for this visit. Confirmed Outpatient Encounter Medications as of 04/10/2025 Medication Sig Dispense Refill acyclovir (ZOVIRAX) 200 mg capsule Take 1 capsule (200 mg total) by mouth 5 (five) times a day Mustkeep 11/07/24 appointment for additional refills. 150 capsule 0 amLODIPine (NORVASC) 5 mg tablet TAKE 1 TABLET BY MOUTH DAILY 90 tablet 3 betamethasone dipropionate (DIPROLENE) 0.05 % cream Apply 1 application topically as needed for rash 0 cholecalciferol (VITAMIN D-3) 50,000 unit capsule Take 1 capsule (50,000 Units total) by mouth oncea week On clotrimazole-betamethasone (LOTRISONE) cream Apply 1 application topically as needed (Rash) 0 cyanocobalamin (Vitamin B-12) 1,000 mcg tablet Take 1 tablet (1,000 mcg total) by mouth daily cyclobenzaprine (FLEXERIL) 10 mg tablet Take 1 tablet (10 mg total) by mouth 3 (three) times a day as needed for muscle spasms (Back Pain) dicyclomine (BENTYL) 20 mg tablet Take 1 tablet (20 mg total) by mouth 3 (three) times a day as needed fluticasone (FLONASE) 50 mcg/actuation nasal spray Administer 1 spray into each nostril daily furosemide (LASIX) 40 mg tablet Take 1 tablet (40 mg total) by mouth daily One tab per day per notes 07/22/2024 90 tablet 3 insulin aspart (NovoLOG) 100 unit/mL insulin pen Inject subcutaneously per sliding scale BG 140-175 = 5 units BG 175-250 = 10 units BG >250 units = 15 units insulin degludec (TRESIBA) 200 unit/mL (3 mL) pen for injection Inject 0.16 mL (32 Units total) under the skin nightly ketoconazole (NIZORAL) 2 % cream Apply 1 application topically as needed for rash metFORMIN (GLUCOPHAGE) 1,000 mg tablet Take 1 tablet (1,000 mg total) by mouth 2 (two) times a day OneTouch Verio test strips strip USE TO TEST BS TID pravastatin (PRAVACHOL) 10 mg tablet Take 1 tablet (10 mg total) by mouth nightly 30 tablet 0 prochlorperazine (COMPAZINE) 5 mg tablet every 6 (six) hours as needed spironolactone (ALDACTONE) 25 mg tablet Take 1 tablet (25 mg total) by mouth daily 30 tablet 11 triamcinolone (KENALOG) 0.025 % cream Apply 1 Application topically 2 (two) times a day as needed for rash [DISCONTINUED] aspirin 325 mg tablet Take 325 mg by mouth daily No facility-administered encounter medications on file as of 04/10/2025. PHYSICAL EXAM BP 145/54 Pulse 75 Ht 182.9 cm (6') SpO2 97% BMI 43.59 kg/m?? General: No acute distress. Lungs: Clear to auscultation bilaterally. Chest: Status post median sternotomy Cardiovascular: Regular rate rhythm S1-S2. Jugular venous pulse 10 cm trace lower extremity edema Abdomen: Soft and non-tender. Extremities: Warm and dry without clubbing or cyanosis DIAGNOSTIC DATA Reviewed ECG: Probable sinus rhythm with APC Echocardiogram: SUMMARY: Normal LV systolic function. impaired diastolic relaxation with elevated mean left atrial pressure Normal RV function. Moderate tricuspid regurgitation with pulmonary hypertension, estimated PA pressure 60 mm Hg and a dilated IVCLA is normal. Mild RV cavity enlargement. LV cavity size is mildly dilated. Normal LV wall thickness/mass. Dilated inferior vena cava. Normal aorta.Normal global LV Myocardial longitudinal function and LV strain pattern. Confirmed on 04/13/2024 - 16:07:35 by Bebeto Murillo MD Labs: Lab Results Component Value Date INR 1.46 (H) 05/30/2024 INR 1.53 (H) 05/30/2024 INR 1.47 (H) 05/27/2024 APTT 33 05/30/2024 APTT 37 05/26/2024 APTT 32 01/25/2020 Lab Results Component Value Date TROPONINI <0.03 01/15/2020 NTPROBNP 457 (H) 08/11/2024 Lab Results Component Value Date TSH 5.20 (H) 01/12/2020 TSH 4.18 09/25/2016 FREET4 1.38 01/17/2020 Lab Results Component Value Date CHOL 129 01/15/2020 TRIG 108 01/15/2020 HDL 29 (L) 01/15/2020 LDLCALC 78 01/15/2020 LDL 85 10/11/2019 Medical Decision Making Atrial fibrillation. She has had Maze surgery. She is maintaining sinus rhythm. .Status stable. Risk of complications and/or morbidity or Mortality Moderate as evidenced by Prescription drug management Chronic diastolic heart failure. She did not tolerate Jardiance. I will start Farxiga. Hypertension. She has isolated systolic hypertension today. I will increase her amlodipine to 10 mgdaily. We will plan routine follow-up in 12 months. Ms. Glez has my contact information for any questions in the interim. Please do not hesitate to page me at for any questions regarding the care of Ms. Glez. Michi De La Paz MD PhD 04/10/2025 documented in this encounter Plan of Treatment Not on file documented as of this encounter Procedures Procedure Name Priority Date/Time Associated Diagnosis Comments ECG 12-LEAD Routine 04/10/2025 3:53 PM CDT Atrial fibrillation, unspecified type (HCC) documented in this encounter Results * ECG 12 lead (04/10/2025 3:53 PM CDT) Michi De La Paz MD PhD ECG ORDERABLES Edited Result - Final documented in this encounter Visit Diagnoses Diagnosis Atrial fibrillation, unspecified type (HCC)- Primary Essential hypertension Unspecified essential hypertension Chronic diastolic heart failure (HCC) Chronic diastolic heart failure Hypertension, essential Unspecified essential hypertension documented in this encounter Discontinued Medications Medication Sig Discontinue Reason Start Date End Da te amLODIPine (NORVASC) 5 mg tablet TAKE 1 TABLET BY MOUTH DAILY 07/11/2024 04/10/2025 documented as of this encounter Care Teams Batch Tank Controller Relationship Specialty Start Date End Date Jaime Givens DO PCP - General 10/13/16 Thad Arredondo MD Consulting Physician Cardiology 05/14/18 Michi De La Paz MD PhD Referring Physician Cardiology 05/14/18 Bebeto Murillo MD Referring Physician Cardiology 09/09/19 Daija Smart DO [address] [address] [address] [facility] Ob[facility]s [facility] Gynecology 09/04/23 Michelle Sherman NP [address] [place] [address] Nurse Practitioner Obstetrics and Gynecology 12/22/23 Amelia Garner NP [address] [facility] [place] [address] Nurse Practitioner Obstetrics and Gynecology 06/27/24 Kavitha Hurst NP [address] [facility] [place] [address] Nurse Practitioner Obstetrics and Gynecology 11/29/24 documented as of this encounter
--- OUTSIDE RECORDS SUMMARY | 2025-04-11 18:04 | XMS_ITS | Encounter Summary ---
Author Organization [facility] Address [address] [place] [address] Care Team Providers Care Functional Support Analyst Name Role Phone Jaime Givens DO Primary Care Provider Encounter Details Date Type Department Care Team (Late st Contact Info) Description 09/09/2000 Outpatient Historical [facility] MD Yonny MORAES Carolyn, MD [address] [place] [id number] Social History Tobacco Use Types Packs/Day Years Used Date Smoking Tobacco: Never Assessed Comments Unknown Sex and Gender Information Value Date Recorded Sex Assigned at Not on file Legal Sex Female 3:21 AM CREDIT REVIEW ANALYST Gender Identity Not on file Sexual Orientation Not on file documented as of this encounter Plan of Treatment Not on file documented as of this encounter Visit Diagnoses Not on filedocumented in this encounter Care Teams Functional Support Analyst Relationship Specialty Start Date End Date Jaime Givens DO [address] [facility] [address] [place] [address] PCP - General Internal Medicine 06/14/18 documented as of this encounter
--- OUTSIDE RECORDS SUMMARY | 2025-04-11 18:04 | XMS_ITS | Clinical Summary ---
Author Organization [facility] Address [address] [place] [address] Phone Care Team Providers Care Carpet Cutter Name Role Phone Jaime Givens DO Primary [...] Givens DO Referring Provider: Al Leonardo MD [address] [place] [phone] Other: Problem Noted Date Diagnosed Date Encounter [...] on file Legal Sex Female 3:21 AM SQL SERVER CONSULTANT Gender Identity Not on file Sexual Orientation Not on file Occupation Industry Job Start Date Job End Date Not on file Not on file Not on file Not on file Last Filed Vital Signs Vital Sign Reading Time Taken Comments Blood Pressure 128/67 06/21/2018 11:27 AM CDT Pulse 67 07/04/2015 12:44 PM SQL SERVER CONSULTANT Temperature - - Respiratory Rate 20 06/24/2012 [...] VACCINES (1 - Tdap) 1975 PNEUMOCOCCAL VACCINE 50+ YEA RS (1 of 2 - PCV) [...] exists OSTEOPOROSIS SCREENING 2021 INFLUENZA VACCINE (#1) 2025 Procedures Procedure Name Priority Date/Time Associated Diagnosis [...] Most Recently Relevant to Health Maintenance Insurance [facility] BLUE PREFERRED Care Teams Carpet Cutter Relationship Specialty Start Date End Date Jaime Givens DO [address] [address] PCP - General Internal Medicine 06/14/18
--- OUTSIDE RECORDS SUMMARY | 2025-04-11 18:04 | XMS_ITS | Encounter Summary ---
Author Organization [facility] Address [address] [place] [address] Phone Care Team Providers Care Food Service Worker Name Role Phone Jaime Givens DO Primary Care Provider + [phone] Thad Arredondo MD Unavailable [phone] Michi De La Paz MD PhD Unavailable [phone] Bebeto Murillo MD Unavailable [phone] Daija Smart DO Unavailable [phone] Michelle Sherman TROUBLE SHOOTER Unavailable [phone] Gin Syed MD Unavailable [phone] Kavya Hall RN Unavailable [phone] Amelia Garner NP Unavailable [phone] Kavitha Hurst NP Unavailable [phone] Encounter Details Date Type Department Care Team [...] on file Legal Sex Female 1:11 AM FURNACE COOLER Gender Identity Not on file Sexual Orientation [...] on filedocumented in this encounter Care Teams Food Service Worker Relationship Specialty Start Date End Date Jaime Givens DO PCP - General 10/13/16 Thad Arredondo MD Consulting Physician Cardiology 05/14/18 Michi De La Paz MD PhD Referring Physician Cardiology 05/14/18 Bebeto Murillo MD Referring Physician Cardiology 09/09/19 Daija Smart DO [address] [id number] Sales Technician Obstetrics and Gynecology 09/04/23 Michelle Sherman NP [address] [place] [place] [id number] Nurse Practitioner Obstetrics and Gynecology 12/22/23 Gin Syed MD [address] [facility] [address] [place], [place] [id number] Resident Internal Medicine 05/29/24 05/30/24 Kavya Hall, RN [address] [facility] [address] [place], [place] [id number] SHOP Outpatient Building Maintenance Worker 06/03/24 06/28/24 Amelia Garner NP [address] [place] [address] Nurse Practitioner Obstetrics and Gynecology 06/27/24 Kavitha Hurst NP [address] [place] [address] Nurse Practitioner Obstetrics and Gynecology 11/29/24 documented as of this encounter
--- OUTSIDE RECORDS SUMMARY | 2025-04-11 18:04 | XMS_ITS | Encounter Summary ---
Author Organization [facility] Address [address] [place] [address] Phone Care Team Providers Care Furniture Removalist Name Role Phone Jaime Givens DO Primary Care Provider + [phone] Thad Arredondo MD Unavailable [phone] Michi De La Paz MD PhD Unavailable [phone] Bebeto Murillo MD Unavailable [phone] Daija Smart DO Unavailable [phone] Michelle Sherman CONCRETE VIBRATOR OPERATOR Unavailable [phone] Amelia Garner NP Unavailable [phone] Kavitha Hurst NP Unavailable [phone] Encounter Details Date Type Department Care Team (Late st Contact Info) Description 06/30/2024 Telephone [facility] [address] [facility] Floor [address] [place] [address] Yulisa Arce NP [address] [place] [address] Social History Tobacco Use Types Packs/Day Years Used Date Smoking Tobacco: Former Smokeless Tobacco: Never Comments:quit 1986 Alcohol Use Standard Drinks/Week Comments No 0 (1 standard drink = 0.6 oz pur e alcohol) [facility] Utilities Answer Date Recorded In the past [...] often do you attend chur ch or rastafarian services? 1 to 4 times per year 06/03/2024 Do you belong to any clubs o r organizations such as temple groups, unions, fraternal or athletic groups, or [...] any time in the past 12 m [facility], were you homeless or living in a intermediate (including now)? No 06/03/2024 Personal Safety Answer Date Recorded Have you ever been in or are you currently in a harmful physical or emotional relationship or is someone making you feel afraid or unsafe? Denies 05/31/2024 Comments No Sex and Gender Information Value Date Recorded Sex Assigned at Not on file Legal Sex Female 1:11 AM COMPUTER INFORMATION SCIENCE PROFESSOR Gender Identity Not on file Sexual Orientation Not on file Occupation Industry Job Start Date Job End Date Retired Not on file Not on file Not on file documented as of this encounter Plan of Treatment Not on file documented as of this encounter Visit Diagnoses Not on filedocumented in this encounter Care Teams Furniture Removalist Relationship Specialty Start Date End Date Jaime Givens DO PCP - General 10/13/16 Thad Arredondo MD Consulting Physician Cardiology 05/14/18 Michi De La Paz MD PhD Referring Physician Cardiology 05/14/18 Bebeto Murillo MD Referring Physician Cardiology 09/09/19 Daija Smart DO [address] [place] [address] Dehydrator Operator Obstetrics and Gynecology 09/04/23 Michelle Sherman NP [address] [place] [address] Nurse Practitioner Obstetrics and Gynecology 12/22/23 Amelia Garner NP [address] [place] [address] Nurse Practitioner Obstetrics and Gynecology 06/27/24 Kavitha Hurst NP [address] [place] [address] Nurse Practitioner Obstetrics and Gynecology 11/29/24 documented as of this encounter
--- OUTSIDE RECORDS SUMMARY | 2025-04-11 18:04 | XMS_ITS | Clinical Summary ---
Author Organization [facility] Address [address] [place] [address] Care Team Providers Care Global Compensation Manager Name Role Phone Jaime Givens DO Primary Care Provider [phone] Thad Arredondo MD Unavailable Michi De La Paz MD PhD Unavailable [phone] Bebeto Murillo MD Unavailable Daija Smart DO Unavailable [phone] Michelle Sherman DIGITAL CONTENT MARKETING MANAGER Unavailable [phone] Amelia Garner NP Unavailable [phone] Kavitha Hurst NP Unavailable [phone] Allergies Active Allergy Reactions Criticality Noted Date [...] 1 application topically as needed for rash 019 Active OneTouch Verio test strips strip USE TO TEST BS TID 020 Active prochlorperazin e (COMPAZINE) 5 mg tablet every 6 (six) hours as needed 021 Active cholecalciferol (VITAMIN D-3) 50,000 unit capsule Take 1 capsule (50,000 Units total) by mouth once a week On 021 Active dicyclomine (BENTYL) 20 mg tablet Take 1 tablet (20 mg total) by mouth 3 (three) times a day as needed 022 Active metFORMIN (GLUCOPHAGE) 1,000 mg tablet Take 1 tablet (1,000 mg total) by mouth 2 (two) times a day 023 Active insulin degludec (TRESIBA) 200 unit/mL (3 [...] needed for muscle spasms (Back Pain) Active pravastatin (PRAVACHOL) 10 mg tablet Take 1 tablet (10 mg total) by mouth nightly 30 tablet Active spironolactone (ALDACTONE) 25 mg tablet Take 1 tablet (25 mg total) by mouth daily 30 tablet 11 024 2024 Active furosemide (LASIX) 40 mg tablet Take 1 tablet (40 mg total) by mouth daily One tab per day per notes 07/22/2024 90 tablet 3 024 Active acyclovir (ZOVIRAX) 200 mg capsule Take 1 capsule (200 mg total) by mouth 5 (five) times a day Must keep 11/07/24 appointment for additional refills. 150 capsule 025 Active amLODIPine (NORVASC) 5 mg tabletIndicatio ns:Essential hypertension Take 2 tablets (10 mg total) by mouth daily 180 tablet 3 025 2025 Active dapagliflozin propanediol (FARXIGA) 10 mg tabletIndicatio ns:Chronic diastolic heart failure (HCC) Take 1 tablet (10 mg total) by mouth daily 30 tablet 11 Active aspirin 325 mg tablet Take 325 mg by mouth daily 2020 Discontinued amLODIPine (NORVASC) 5 mg tablet TAKE 1 TABLET BY MOUTH DAILY 90 tablet 3 024 2024 Discontinued valACYclovir (VALTREX) 1 gram tablet Take 1 tablet (1,000 mg total) by mouth 2 (two) times a day 60 tablet 3 025 2024 Active Problems Problem Noted Date Diagnosed Date 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 Her retina provider Dr. Colunga ([facility]) plans to perform PRP OS prior [...] eye. 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 Hepatic steatosis 01/26/2020 Assessment & Plan (01/31/2020 [...] recurrence -cont ASA 325 -monitor on telemetry Arthritis 06/10/2018 Generalized anxiety disorder 10/19/2017 Type 2 diabetes mellitus without complications 0 10/19/2017 Chronic diastolic heart failure 10/19/2017 Assessment & Plan (02/10/2020 12:10 PM CDT): [...] Holding atenolol Venous insufficiency (chronic) (peripheral) 10/01 History of cardioversion 08/20/2017 Cervical dysplasia 08/27/2016 Hypertension, essential 04/04/2016 Overview (06/10/2018): HTN (hypertension), [...] amlo 5 - cont GDMT as above TAMRA (obstructive sleep apnea) 04/04/2016 Overview (06/10/2018): [...] Uses CPAP at home - cont here [facility] Body mass index 40+ - severely obese 04/04/2016 Overview (12/05/2016): Morbid obesity with BMI of 50.0-59.9, adult 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 Improved with PRN meds and position - cont lidocaine patch, PRN APAP and tramadol Iron deficiency anemia, unsp ecified iron deficiency anemia type 05/26/2024 01/12/2025 Assessment & Plan (05/29/2024 11:01 AM CDT): Possibly iso slow GIB. Followed by GI who would like to scope but felt unsafe at her home OSH d/t cardiac history and chronic pleural effusion so sent to ED . GI/anesthesia here felt high risk for sedation as well so needs to be transferred to [facility] for cardiology. Given progressive SOB and decreasing Hgb, felt unsafe to d/c - PPI BID - trend CBC - give IV dextran x1 - cont PO iron - aT&S; transfuse <7 - on transfer list to [facility] for scope with cardiology clearance (HFpEF) heart failure with p reserved ejection fraction 05/26/2024 02/13/2025 Assessment & Plan (05/26/2024 6:07 PM CDT): Last echo 03/2024 EF 60%, no WMAs, PA pressure 60mmHg, G3DD, mod TV regurgitation with pHTN. Considering SGLT2 inhibitors OP Entresto on med list but has not started yet; still taking lisinopril - proBNP 418, prior 800 - appears compensated - cont home GDMT lisinopril, lasix, paulina Follows with Dr Murillo GIB (gastrointestinal bleeding) 05/26/2024 02/13/2025 SOB (shortness of breath) 05/26/2024 Assessment & Plan (05/29/2024 11:07 AM CDT): Likely multifactorial given hx HFpEF, chronic pleural effusion, obesity, TAMRA. SOB now limiting ADLs - cont diuretics - IS - PT/OT Pleural effusion 05/26/2024 01/12/2025 Assessment & Plan (05/29/2024 11:07 AM CDT): [...] improved, consider thora. Stable currently Bloating 06/10/2023 01/12/2025 Family history of colonic polyps 06/10/2023 01/12/2025 Family history of breast cancer 04/03/2023 01/12/2025 Fatty stool 12/23/2022 12/23/2022 01/12/2025 Flatulence, eructation and gas pain 12/23/202212/2301/12/2025 Vomiting 12/23/2022 12/23/2022 01/12/2025 At risk for breast cancer 12/31/2021 Nuclear sclerotic cataract of left eye 07/25/2020 01/12/2025 Overview (07/25/2020): Added automatically from request for surgery [id number] Central corneal cloudiness of Yash OU 07/23/2020 01/12/2025 Toe abrasion 02/10/2020 01/12/2025 Overview (02/10/2020): Right great toe abrasion-clean, dry and intact, healing -Continue topical Polysporin -Wound consult Assessment & Plan (02/10/2020 12:24 PM CDT): Right great toe abrasion-clean, dry and intact, healing -Continue topical Polysporin -Wound consult Abnormal urinalysis 02/07/2020 01/13/20 Assessment & Plan (02/10/2020 11:52 AM CDT): [...] Will hold off on tx unless symptomatic. Acute hypoxemic respiratory failure 01/16/2020 01/12/2025 Assessment & Plan (01/30/2020 9:56 AM CDT): [...] diuretics Recurrent pleural effusion on right 01/16/2020 02/13/2025 Assessment & Plan (01/31/2020 7:27 AM CDT): Much improved after thoracentesis. Increase diuretics begun Follow up as outpt Will see in office next week Assessment & Plan (01/30/2020 9:46 AM CDT): Recurrent R pleural effusion, after 4+ L tapped recently in the setting of HFpEF with volume overload and pulmonary htn -cont diuresis as noted elsewhere -s/p thoracentesis 01/25(-3659) per IP -liver US without ascites -RHC [...] 80mg IV BID and metolazone -s/p thoracentesis 01/25(-3660) per IP -liver US without ascites - [...] po vitamin K for mildly elevated INR Pulmonary hypertension 01/16/202005/26 Assessment & Plan (01/28/2020 [...] supplement vitamin K and follow the protime. 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/2019 Acute kidney failure, unspecified 10/19/2017 01/12/2025 Assessment & Plan (02/10/2020 12:14 PM CDT): [...] weights Candidiasis of skin and nail 10/19/2017 01/12/2025 Elevated white blood cell count, unspecified 8 01/12/2025 Encounter for surgical after care following surgery on the circulatory system 10/19/20172024 Herpesviral infection, unspecified 10/19/2017 01/12/2025 Assessment & Plan (05/26/2024 6:37 PM CDT): Takes suppressive acyclovir, continue Hypertensive heart disease with heart failure 10/19/19 18 07/19/2019 Persistent atrial fibrillation 09/22/2017 07/19/2019 Abnormal EKG 09/01/2017 01/12/2025 Morbid obesity 07/31/2017 01/12/2025 Assessment & Plan (02/10/2020 12:02 PM CDT): BMI 42.89 -Continue to encourage weight loss Assessment & Plan (02/09/2020 2:30 PM CDT): -continue to encourage weight loss bmi 42.9 Encourage patient to ambulate in halls Assessment & Plan (02/08/2020 11:54 AM CDT): -continue to encourage weight loss -PT/OT Assessment & Plan (02/07/2020 1:04 PM CDT): -continue to encourage weight loss -PT/OT Chronic anticoagulation 07/31/201701/29 Other orthopedic rn (current) drug therapy 11/13/2016 01/12/2025 Ulcer of toe 10/13/2016 01/12/2025 Osteomyelitis 09/29/2016 01/12/2025 Gangrene 09/29/2016 01/12/2025 Gustatory sweating 04/08/2016 Diabetes mellitus 04/04/2016 01/12/2025 Overview (06/10/2018): DM type 2 with diabetic [...] - dose reduce to lantus 16u, MDSSI Encounter for screening mamm ogram for high-risk patient 07/04/2015 01/12/2025 Hx herpes simplex disciform keratitis 02/21/2014 01/12/2025 Assessment & Plan (03/30/2023 3:46 PM CDT): No recurrence. Continue acyclovir 400mg daily. Refills given Assessment & Plan (05/27/2021 3:30 PM CDT): No recurrence. Continue acyclovir 400 TID. Plan to increase to treatment dose prior to CEIOL OS Assessment & Plan (07/23/2020 3:46 PM COMMUNICATIONS ELECTRICIAN SUPERVISOR): H/o HSV OU, hx central corneal cloudiness [...] TID, more when stressed RTC 1 year Diarrhea 07/15/2012 01/12/2025 Malabsorption 07/15/2012 01/12/2025 Keratitis 08/29/2010 01/12/2025 Edema 08/05/2010 01/12/2025 Obesity 08/05/2010 01/12/2025 Encounter for preventive health examination 01/09/2009 01/12/2025 Type 2 diabetes mellitus wit h both eyes affected by proliferative retinopathy and macular edema, with long-term current use of insulin 01/12/2025 Assessment & Plan (03/30/2023 2:59 PM CDT): [...] states her other retina doctors ([facility]) are closer to her and it is [...] She would like to transfer care to [facility]. I have asked her to return to see us roughly 4-6 weeks for re-evaluation. Encounters Date Type Department Care Team Description 04/10/2025 3:30 PM CDT Office Visit [facility] Cardiology [address] [place] [address] 8th [place] [address] [place] [address] Michi De La Paz MD PhD Atrial fibrillation, unspecified type (HCC) (Primary Dx); Essential hypertension; Chronic diastolic heart failure (HCC); Hypertension, essential 04/10/2025 Results Follow-Up [facility] Cardiology [facility] access hospital[address] [facility] 8th [place] [address] [place] [address] Michi De La Paz MD PhD ECG 12 lead 03/06/2025 1:45 PM CDT Office Visit [facility] Ophthalmology [address] [facility] 6th [place] [address] Mariza Engel MD Age-related nuclear cataract of both eyes (Primary Dx); 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) 01/24/2025 Results Follow-Up [facility] Obstetrics and Gynecology [address] [facility] 13th [place] [address] Jael Mullen MD Surgical pathology, Pap and High Risk HPV and Genotyping (Cytology Component) 01/13/2025 11:09 AM CDT - 01/13/2025 11:59 PM CDT Hospital Encounter [facility] [address] [place] [address] Complex atypical endometrial hyperplasia Discharge Disposition: Discharge to home or self care 01/13/2025 8:45 AM CDT - 01/13/2025 11:59 PM CDT Hospital Encounter [facility] [address] [facility] 3rd [place] [address] Complex atypical endometrial hyperplasia Discharge Disposition: Discharge to home or self care 01/12/2025 4:00 PM CDT Office Visit [facility] Obstetrics and Gynecology [address] [facility] 13th [place] [address] Jael Mullen MD Complex atypical endometrial hyperplasia (Primary Dx) 01/12/2025 Telephone [facility] Obstetrics and Gynecology [address] [facility] 13th [place] [address] Stefania Treadwell RN from Last 3 Months Surgical History [...] Date Comments Hypertension Hypertension Diverticulosis Atrial fibrillation (HCC) Type 2 diabetes mellitus Arthritis Ketoacidosis Herpes infection to both eyes in 2009 Sleep apnea Thyroid disease Small nodule Endometrial hyperplasia Morbid obesity with BMI of 5 0.0-59.9, adult (HCC) Complex atypical endometrial hyperplasia 2010 HYSTEROSCOPY/d&c; MIRENA iud PONV (postoperative nausea and vomiting) Motion sickness Ocular herpes 01/16/2020 Osteomyelitis 09/29/2016 Family History Medical History Relation Name Comments [...] 0.6 oz pur e alcohol) [facility] Utilities Answer Date Recorded In the past 12 months has [employer], gas, oil, or water [employer] threatened to shut off services in your home? No 06/03/2024 Social Connection and Isolation Panel Answer Date Recorded In a typical week, how many times do you talk on the phone with family, friends, or neighbors? More than three times a week 06/03/2024 How often do you get togethe r with friends or relatives? Twice a week 06/03/2024 How often do you attend [facility] or orthodox services? 1 to 4 times per year [...] any time in the past 12 [facility], were you homeless or living in a fci (including now)? No 06/03/2024 Personal Safety Answer Date Recorded Have you ever been in or are you currently in a harmful physical or emotional relationship or is someone making you feel afraid or unsafe? 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 Gender Identity Not on file Sexual Orientation [...] Pulse 75 04/10/2025 3:43 PM CDT Temperature 36.8 C (98.3 F) 01/12/2025 4:20 PM CDT Respiratory Rate 16 01/12/2025 4:20 PM CDT Oxygen Saturation 97% 04/10/2025 3:43 PM CDT Inhaled Oxygen Concentration - - Weight 145.8 kg (321 lb 6.4 oz) 01/12/2025 4:20 PM CDT Height 182.9 cm (6') 04/10/2025 3:43 PM CDT Body Mass Index 43.58 01/12/2025 4:20 PM CDT Plan of Treatment Health Maintenance Due Date Last Done Comments Hepatitis C Screening 1955 Osteoporosis Screening-Bone Density Scan 1955 Foot Exam 1955 DTaP/Tdap/Td Vaccine (1 - Tdap) 1967 Hepatitis B Screening 1974 Pneumococcal vaccine 65+ (1 of 2 - PCV) 1975 Zoster Vaccine (1 of 2) 2006 Albumin Creatinine Ratio, Urine 10/11/2020 0 Lipid Panel 01/14/2021 01/15/2020, 10/01, 10/07/2017, Additional history exists Well Visit 65+ 2021 Breast Cancer Screening-Mammogram 04/03/2024 04/03/2023, 12/31/2021, 10/09/2020, Additional history exists Covid-19 Vaccine (3 - 2023-2 5 season) 2024 11/20/2020, 10/10/2020 Hemoglobin A1C 11/23/2024 05/26/2024, 12/29, 10/11/2019, Additional history exists Influenza Vaccine (#1) 2025 Depression Screening 05/26/2025 05/26/2024 Fall Risk Assessment 06/02/2025 06/02/2024 eGFR 12/19/2025 12/19/2024, 07/31, 07/21/2024, Additional history exists Dilated Eye Exam 03/06/2026 03/06/2025, , 03/30/2023, Additional history exists Colon Cancer Screening-Colonoscopy 05/31/2034 05/31/2024, 06/13/2019 Colon Cancer Screening-CT Colonography Discontinued 05/31/2024, 06/13/2019 Colon Cancer Screening-DNA Stool Discontinued 05/31/20, 06/13/2019 Colon Cancer Screening-FIT Discontinued 05/31/2024, Colon Cancer Screening-Sigmoidoscopy Discontinued 05/31/2024, 06/13/2019 Procedures Procedure Name Priority Date/Time Associated Diagnosis Comments ECG 12-LEAD Routine 04/10/2025 3:53 PM CDT Atrial fibrillation, unspecified type (HCC) PAP AND HIGH RISK HPV, REFLEX TO GENOTYPING Routine 01/13/2025 8:45 AM CDT Complex atypical endometrial hyperplasia SURGICAL PATHOLOGY Routine 01/13/2025 8: 45 AM CDT Complex atypical endometrial hyperplasia HIGH RISK HPV DNA DETECTION WITH GENOTYPING Routine 01/13/2025 8:45 AM CDT Complex atypical endometrial hyperplasia CA ENDOMETRIAL BX W/WO ENDOCERVIX BX W/O DILAT SPX Routine 01/12/2025 4:00 PM CDT Complex atypical endometrial hyperplasia BASIC METABOLIC PANEL Routine 12/19/2024 4:20 PM CDT Chronic heart failure with preserved ejection fraction (HCC) COLONOSCOPY 05/31/2024 5:14 PM CDT HEMOGLOBIN A1C STAT 05/26/2024 1:24 PM CDT SCREENING MAMMOGRAM BILATERAL W JOSE Schedule Routine, Read Routine (OP Routine) 04/03/2023 2:45 PM CDT At risk for breast cancer Encounter for screening mammogram for malignant neoplasm of breast LIPID PANEL STAT 01/15/2020 11:33 PM CDT ALBUMIN CREATININE RATIO, URINE Routine 10/11/2019 11:56 AM COMMUNICATIONS ELECTRICIAN SUPERVISOR from Last 3 Months or Most Recently Relevant to Health Maintenance Results * ECG 12 lead (04/10/2025 3:53 PM CDT) Michi De La Paz MD PhD ECG ORDERABLES Edited Result - Final * High Risk HPV DNA Detection with Genotyping (Molecular component) (01/13/2025 8:45 AM CDT) HPV HR 16 Not Detected Not Detected [facility] HPV HR 18 Not Detected Not Detected [facility] HPV HR Non 16/18 Not Detected Not Detected [facility] Comment: Interpretive Data Nucleic acid amplification for detection of high-risk Human Papilloma virus (HPV) is performed by the Ana Jsoe 6800 HPV test. This assay specifically detects HPV-16 and HPV-18 genotypes. The following HPV genotypes are detected as high-risk HPV: HPV-31, 33, 35, ,39, 45, 51, 52, 56, 58, 59, 66, and 68. This assay has been approved by the [place] Food and Drug Administration for detection of HPV in cervical specimens collected by a physician using an endocervical brush/spatula or cervical broom and placed in the ThinPrep Pap Test PreservCyt collection containers. The performance characteristics of this test have been verified by the [facility] Molecular Infectious Disease laboratory. Correlate with separately reported cytology results, as applicable. Interpretive data last revised 23 Endocervical 01/13/2025 8:45 AM CDT 01/18/2025 10:12 AM CDT Narrative [facility] - 01/19/2025 12:44 AM CDT Clinical history and diagnosis->h/o CAH Number of vials->1 Testing type->Screening Last menstrual period (date if known)->n/a Menstrual status->Postmenopausal Jael Mullen MD LAB BODY FLUIDS AND STOOL S ORDERABLES Final Result [facility] Department [place] [address] [facility] * Pap and High Risk HPV and Genotyping (Cytology Component) (01/13/2025 8:45 AM CDT) Thin prep (Pap test) 01/13/2025 8:45 AM CDT 01/13/2025 11:09 AM CDT Narrative PATHOLOGY [facility] - 01/24/2025 4:13 PM CDT EPIC results best viewed via link to PDF [facility] Lita Villalpando Laboratory of Surgical [place] [address] Note to Patients: This report may contain a detailed description of human tissue sent by a health care provider to the laboratory for pathologic evaluation. The content of this report is essential for diagnosis and may provide important critical findings. This information may be unfamiliar to patients to review without a medical professional present. It is advised that the patient review this report in the presence of a health care provider who can answer questions and explain the details. 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 FINAL INTERPRETATION SOURCE OF SPECIMEN Liquid based Thin Prep pap with HPV: STATEMENT OF ADEQUACY - Satisfactory for evaluation - Endocervical cells/transformation zone sample present GENERAL CATEGORIZATION: - Negative for squamous intraepithelial lesion or malignancy Comments (Normal-Negative for High Risk HPV) HPV HR 16- Not detected HPV HR 18-Not detected HPV HR non 16/18- Not detected Interpretive Data Nucleic acid amplification for detection of high-risk Human Papilloma virus (HPV) is performed by the Ana Jose 6800 HPV test. This assay specifically detects HPV- 16 and HPV-18 genotypes. The following HPV genotypes are detected as high-risk HPV: HPV-31, 33, 35, 39, 45, 51, 52, 56, 58, 59, 66, and 68. This assay has been approved by the [place] Food and Drug Administration for detection of HPV in cervical specimens collected by a physician using an endocervical brush/spatula or cervical broom and placed in the ThinPrep Pap Test PreservCyt collection containers. The performance characteristics of this test have been verified by the [facility] Molecular Infectious Disease laboratory. Correlate with reported cytology results, as applicable. Interpretive data last revised 23 [facility]/01/24/2025 16:13 KETTY Del Castillo([facility]) Report Electronically Reviewed and Signed Out By KETTY Del Castillo([facility]) 01/24/2025 16:13:20 Cervicovaginal Cytology (Pap Test) Disclaimer: The Pap test is a screening test used to detect cervical cancer and its precursors; it is not a diagnostic procedure. False negative and false positive results do occur. Pap test results should be interpreted in the context of pertinent clinical information and biopsy results as indicated. [facility] Clinical Laboratory Improvement Amendments (CLIA) mandate that cytologic and histologic results be correlated for laboratory auditor/quality & improvement standards. FOR ALL HIGH-GRADE CASES we request submission of follow-up histological material and/or reports that have not been previously provided so that we may fulfill said required standards. Gross Description A. Liquid based Thin Prep pap with HPV: Cervical/vaginal - Screening ThinPrep Clinical Diagnosis and History Last Menstrual Period: n/a Menstrual History: Post-menopausal The patient is a 69 year old female with history of CAH. Report Images and scanned documents, if included only viewable in PDF version The performance characteristics of some immunohistochemical stains, in-situ hybridization and fluorescence in-situ hybridization tests and immunophenotyping by flow cytometry cited in this report (if any) were determined by the Surgical Pathology Department at [facility] as part of an ongoing quality control checker program and in compliance with federally mandated regulations drawn from the Clinical Laboratory Improvement Act of 1988 (CLIA '88). Some of these tests rely on the use of analyte specific reagents and are subject to specific labeling requirements by the [place] Food and Drug Administration. Such diagnostic tests may only be performed in a facility that is certified by the Department of Health and Human Services as a high complexity laboratory under CLIA '88. The FDA has determined that such clearance or approval is not necessary. This test is used for clinical purposes. It should not be regarded as investigational or for research. Nevertheless, federal rules concerning the medical use of analyte specific reagents require that the following disclaimer be attached to the report: This test was developed and its performance characteristics determined by the Surgical Pathology Department of [facility]. It has not been cleared or approved by the U. S. Food and Drug Administration. Jael Mullen MD LAB CYTOLOGY ORDERABLES F inal Result PATHOLOGY [facility] 3rd Floor [place], [place] [phone] * Surgical pathology (01/13/2025 8:45 AM CDT) Tissue (Endometrial biopsy) 01/13/2025 8:45 AM CDT 01/13/2025 4:36 PM CDT Narrative PATHOLOGY [facility] - 01/16/2025 4:29 PM CDT EPIC results best viewed via link to PDF [facility] Lita Villalpando Laboratory [place] [address] Note to Patients: This report may contain a detailed description of human tissue sent by a health care provider to the laboratory for pathologic evaluation. The content of this report is essential for diagnosis and may provide important critical findings. This information may be unfamiliar to patients to review without a medical professional present. It is advised that the patient review this report in the presence of a health care provider who can answer questions and explain the details. SURGICAL PATHOLOGY REPORT FINAL Patient Name: GONZALEZ TEJEDA Gender: F : 1955 (Age: 69) Address: [address] [place], [place] [id number] Hospital #: [id number] Taken:01/13/2025 Received:01/13/2025 Reported: 01/16/2025 Patient Type: [facility] SPECIMEN Service: Laboratory Location: Physician(s): Jael Mullen M.D. Diagnosis: Uterus, endometrium, biopsy - Scant fragments of asynchronous endometrium consistent with exogenous progestin therapy - Scant strips of unremarkable endocervical epithelium - No evidence of endometrial hyperplasia or malignancy ben/01/16/2025 10:38 By this signature, I attest that the above diagnosis is based upon my personal examination of the slides(and/or other material indicated in the diagnosis). Bronson Shelton M.D., Ph.D. Report Electronically Reviewed and Signed Out By Bronson Shelton M.D., Ph.D. 01/16/2025 16:29:03 Eugenie Zurita M.D. History: The patient is a 69-year-old woman presenting with a history of complex atypical endometrial hyperplasia; Mirena IUD in place. Operative procedure: Endometrial biopsy. Specimen(s) Received: A: Endometrium Gross Description: Received in formalin, labeled with the patient s identifiers and endometrium, is an aggregate of opaque hemorrhagic mucinous material and tissue measuring 2.8 x 1.4 x 0.4 cm. Filtered. Labeled A1. Jar 0. sxst/01/13/2025 17:10 PA(s): Alanis Hernandez By this signature, I attest that the above diagnosis is based upon my personal examination of the slides(and/or other material). Addenda/Procedures The performance characteristics of some immunohistochemical stains, fluorescence in-situ hybridization tests and immunophenotyping by flow cytometry cited in this report (if any) were determined by the Surgical Pathology and Flow Cytometry Departments at [facility] as part of an ongoing quality control checker program and in compliance with federally mandated regulations drawn from the Clinical Laboratory Improvement Act of 1988 (CLIA '88). Some of these tests rely on the use of analyte specific reagents and are subject to specific labeling requirements by the US Food and Drug Administration. Such diagnostic tests may only be performed in a facility that is certified by the Department of Health and Human Services as a high complexity laboratory under CLIA '88. The FDA has determined that such clearance or approval is not necessary. This test is used for clinical purposes. It should not be regarded as investigational or for research. Nevertheless, federal rules concerning the medical use of analyte specific reagents require that the following disclaimer be attached to the report: This test was developed and its performance characteristics determined by the Surgical Pathology and Flow Cytometry Departments of [facility]. It has not been cleared or approved by the U. S. Food and Drug Administration. IMAGES AND SCANNED DOCUMENTS, IF INCLUDED, ONLY VIEWABLE IN PDF VERSION OF REPORT Jael Mullen MD LAB PATHOLOGY ORDERABLES Final Result PATHOLOGY [facility] 3rd Floor [place], [place] [phone] * CA ENDOMETRIAL BX W/WO ENDOCERVIX BX W/O DILAT SPX (01/12/2025 4:00 PM CDT) Narrative Jael Mullen MD - 01/12/2025 4:00 PM CDT Jael Mullen MD 02/13/2025 2:57 PM Endometrial biopsy Performed by: Jael Mullen MD Authorized by: Jael Mullen MD Consent Given by: Patient Timeout: prior to procedure the correct patient, procedure, and site was verified Verbal consent obtained: Yes Written consent obtained: Yes Preparation: Patient was prepped using a clean technique Indication: Indications comment: H/o endometrial hyperplasia Procedure: Procedure: endometrial biopsy with Pipelle A bivalve speculum was placed in the vagina: yes Cervix cleaned and prepped: yes A paracervical block was performed: no The cervix was dilated: no Uterus sounded: yes Specimen collected: specimen collected and sent to pathology Patient tolerance: Patient tolerated the procedure well with no immediate complications Findings: Uterus size: Non-gravid Cervix: normal Adnexa: normal Jael Mullen MD IN CLINIC/BEDSIDE ORDERAB LES Final Result * (ABNORMAL) Basic metabolic panel (12/19/2024 4:20 PM CDT) Glucose 85 64 - 99 mg/dL [facility] Comment: NONFASTING GLUCOSE RANGE = 64-199 mg/dL FASTING GLUCOSE 64 - 99 = NORMAL FASTING GLUCOSE 100 - 125 = IMPAIRED FASTING GLUCOSE FASTING GLUCOSE >=126 = PROVISIONAL DIAGNOSIS OF DIABETES Potassium 4.6 3.3 - 5.1 mmol/L [facility] Creatinine 1.06 0.60 - 1.10 mg/dL [facility] BUN 26(H) 7 - 23 mg/dL [facility] Sodium 138 135 - 145 mmol/L [facility] Chloride 101 95 - 107 mmol/L [facility] CO2 Content 26 21 - 29 mmol/L [facility] Calcium 10.1 8.6 - 10.3 mg/dL [facility] eGFR 57.2(L) >60.0 mL/min/1.7 3 m2 [facility] Blood 12/19/2024 4:20 PM CDT 12/19/2024 4:47 PM CDT us Bebeto Murillo MD LAB BLOOD ORDERABLES F inal Result [facility] * Colonoscopy (05/31/2024 5:14 PM CDT) Anatomical Region Laterality Modality Other Narrative Procedure Note Darleen May MD - 05/31/2024 5:14 PM CDT [facility] Patient Name: Gonzalez Tejeda Procedure Date: 05/31/2024 5:14 PM Date of : 1955 Admit Type: Inpatient Age: 69 Gender: Female Attending MD: Darleen May M.D. Room: [facility] ENDOSCOPY Note Status: Finalized Procedure: Colonoscopy Indications: [...] scope was passed under direct vision.The CF [id number] endoscope was introduced through the anus [...] clip was successfully placed (MR conditional). Clip warehouse checker: [place] [employer]. There was no bleeding at the end of the procedure. The exam was otherwise without abnormality on direct and retroflexion views. Impression: - Hemorrhoids found on perianal exam. - Three 4 to 10 mm polyps in the transverse colonand in the ascending colon, removed with a cold snare. Resected and retrieved. Clip (MR conditional) was placed. Clip warehouse checker: [place] [employer]. - The examination was otherwise normal on [...] study of 507 normal and diabetic adults. Minority populations were underrepresented and children were not included. (Diabetes Care 31:4044-6273, 2008). The eAG is not equivalent to a fasting glucose. Blood 05/26/2024 1:24 PM CDT 05/26/2024 1:25 PM CDT Anabelle Mckeon MD LAB BLOOD ORDERABLES Final R esult [facility] [address] [facility]. [place] [place] [address] * Screening Mammogram Bilateral W Jose (04/03/2023 2:45 PM CDT) Anatomical Region Laterality Modality Breast Bilateral Mammography Narrative 04/05/2023 9:52 AM CDT Mammogram Technique: Bilateral Digital Breast Tomosynthesis, Bilateral C-view 2D Screening mammogram. Views obtained: bilateral craniocaudal and bilateral mediolateral oblique. Computer Aided Detection was performed. Mammogram Findings: The present examination has been compared to prior imaging studies performed at [facility] on 12/31/2021, at [facility] on 10/09/2020, and at [place], [place] on 06/21/2018. There are scattered areas of fibroglandular density. There is no suspicious abnormality in either breast. Impression: There is no mammographic evidence of malignancy. Annual screening mammography is recommended. OVERALL FINAL ASSESSMENT: BI-RADS CATEGORY 1: Negative. Procedure Note Miladys Sarah MD - 04/05/2023 Mammogram Technique: Bilateral Digital Breast Tomosynthesis, Bilateral C-view 2D Screening mammogram. Views obtained: bilateral craniocaudal and bilateral mediolateral oblique. Computer Aided Detection was performed. Mammogram Findings: The present examination has been compared to prior imaging studies performed at [facility] on 12/31/2021, at [facility] on 10/09/2020, and at [place], [place] on 06/21/2018. There are scattered areas of fibroglandular density. There is no suspicious abnormality in either breast. Impression: There is no mammographic evidence of malignancy. Annual screening mammography is recommended. OVERALL FINAL ASSESSMENT: BI-RADS CATEGORY 1: Negative. Faiza Alberto NP IMG MAMMO PROCEDURES Fin al Result * (ABNORMAL) Lipid panel (01/15/2020 11:33 PM CDT) Cholesterol 129 30 - 199 mg/dL [facility] Comment: Interpretive Data Ages < or = 19 years Acceptable: <170 mg/dL Borderline high: 170-199 mg/dL High: >or= 200 mg/dL Ages > or = 20 years Desirable: <200 mg/dL Borderline high: 200-239 mg/dL High: >or= 240 mg/dL Literature References: 1. Expert Panel on Integrated Guidelines for Cardiovascular Health and Risk Reduction in Children and Adolescents. Pediatrics 2011;128:S213 2. NCEP Expert Panel. Circulation 2004;110:227 Current Interpretive Data was last revised on 2018. Triglycerides 108 <=149 mg/dL [facility] Comment: Interpretive Data Ages < or = 9 years Acceptable: <75 mg/dL Borderline high: 75-99 mg/dL High: >or= 100 mg/dL Ages 10 to 20 years Acceptable: <90 mg/dL Borderline high: 90-129 mg/dL High: >or= 130 mg/dL Ages > or = 20 years Desirable: <150 mg/dL Borderline high: 150-199 mg/dL High: 200-499 mg/dL Very high: >or= 499 mg/dL Literature References: 1. Expert Panel on Integrated Guidelines for Cardiovascular Health and Risk Reduction in Children and Adolescents. Pediatrics 2011;128:S213 2. NCEP Expert Panel. Circulation 2004;110:227 Current Interpretive Data was last revised on 2018. HDL 29(L) >=40 mg/dL [facility] Comment: Interpretive Data Ages < or = 19 years Acceptable: >45 mg/dL Borderline low: 40-45 mg/dL Low: <40 mg/dL Ages > or = 20 years Desirable: >or= 60 mg/dL Low: <40 mg/dL Literature References: 1. Expert Panel on Integrated Guidelines for Cardiovascular Health and Risk Reduction in Children and Adolescents. Pediatrics 2011;128:S213 2. NCEP Expert Panel. Circulation 2004;110:227 Current Interpretive Data was last revised on 2018. LDL, calculated 78 <=129 mg/dL [facility] Comment: Interpretive Data Ages < or = 19 years Acceptable: <110 mg/dL Borderline high: 110-129 mg/dL High: >or= 130 mg/dL Ages > or = 20 years Optimal: <100 mg/dL Near optimal: 100-129 mg/dL Borderline high: 130-159 mg/dL High: >160 mg/dL Literature References: 1. Expert Panel on Integrated Guidelines for Cardiovascular Health and Risk Reduction in Children and Adolescents. Pediatrics 2011;128:S213 2. NCEP Expert Panel. Circulation 2004;110:227 Current Interpretive Data was last revised on 2018. Non-HDL Cholesterol 100 mg/dL [facility] Comment: Interpretive Data Ages < or = 19 years Acceptable: <120 mg/dL Borderline high: 120-144 mg/dL High: >145 mg/dL Ages > or = 20 years When triglycerides are >200 mg/dL, Non-HDL cholesterol is a secondary target of therapy with treatment goals that are 30 mg/dL greater than the LDL cholesterol target. Literature References: 1. Expert Panel on Integrated Guidelines for Cardiovascular Health and Risk Reduction in Children and Adolescents. Pediatrics 2011;128:S213 2. NCEP Expert Panel. Circulation 2004;110:227 Current Interpretive Data was last revised on 2018. Chol/HDL ratio 4 [facility] Blood specimen (specimen) 01/15/2020 11:33 PM CDT 01/15/2020 11:47 PM CDT us Carroll Osei MD LAB BLOOD ORDERABLES Fi nal Result [facility] [place] [address] * (ABNORMAL) Albumin Creatinine Ratio, Urine (10/11/2019 11:56 AM COMMUNICATIONS ELECTRICIAN SUPERVISOR) Pathologist [facility] Creatinine, ur 150 20 - 275 mg/dL [facility] Microalbumin, ur 66.0 See Note: mg/dL [facility] Comment: Reference Range: Reference Range Not established Verified by repeat analysis. Microalbumin/creat ratio 440(H) <30 mcg/mg creat [facility] Comment: The ADA defines abnormalities in albumin excretion as follows: Category Result (mcg/mg creatinine) Normal <30 Microalbuminuria 30-299 Clinical albuminuria > OR = 300 The ADA recommends that at least two of three specimens collected within a 3-6 month period be abnormal before considering a patient to be within a diagnostic category. 10/11/2019 11:5 6 AM COMMUNICATIONS ELECTRICIAN SUPERVISOR 10/11/2019 12:02 PM COMMUNICATIONS ELECTRICIAN SUPERVISOR Narrative [facility] - 10/12/2019 6:06 PM COMMUNICATIONS ELECTRICIAN SUPERVISOR FASTING:YES FASTING: YES Resulting Agency Comment Performing Organization Information: Site ID: [place] Name: [facility] Address: [address] [place] [address] Director: Al Sosa D.O., MPH us Gin [employer] Yakel DIGITAL CONTENT MARKETING MANAGER LAB URINE ORDERABLES Final Res ult [facility] [place] from Last 3 Months or Most Recently Relevant to Health Maintenance Insurance [facility] CHOICE [facility] HMO/PPO Address: [address] [address] [place] [address] CHOICE [facility] PPO [facility] MEDICARE [facility] CHOICE [facility] HMO/PPO Address: [address] [address] [place] [address] CHOICE [place] [facility] CHOICE [facility] HMO/PPO Address: [address] [address] [place] [address] MEDICARE [facility] MEDICARE [facility] MEDICARE [facility] MEDICARE [facility] Advance Directives For more information, please contact: [phone] Documents on File Type Date Recorded 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 ADVANCE DIRECTIVE 10/23/2017 10:45 PM [...] 9:11 AM 01/19/2020 8:03 PM Care Teams Global Compensation Manager Relationship Specialty Start Date End Date Jaime Givens DO PCP - General 10/13/16 Thad Arredondo MD Consulting Physician Cardiology 05/14/18 Michi De La Paz MD PhD Referring Physician Cardiology 05/14/18 Bebeto Murillo MD Referring Physician Cardiology 09/09/19 Daija Smart DO [address] [place] [id number] Tobacco Cutter Obstetrics and Gynecology 09/04/23 Michelle Sherman NP [address] [facility] [place] [address] Nurse Practitioner Obstetrics and Gynecology 12/22/23 Amelia Garner NP [address] [facility] [place] [address] Nurse Practitioner Obstetrics and Gynecology 06/27/24 Kavitha Hurst NP [address] [facility] [place] [address] Nurse Practitioner Obstetrics and Gynecology 11/29/24
--- OUTSIDE RECORDS SUMMARY | 2025-04-11 18:04 | XMS_ITS | Patient Health Record ---
Author Organization [employer] [facility] Address [address] [facility]. [address] [place] [id number] Care Team Providers Care Hedis Specialist Name Role Phone Jaime Givnes DO Primary Care Provider Aliyah gottlieb Allergies [...] Problem Family history of polyp of colon (437272335) Family history of colonic polyps (Z83.71) Active confirmed She has a family history of colon polyps in her mother. Her last colonoscopy in July 2019 was normal and she was advised to follow-up in 5 years. Problem 71482891 Diarrhea (R19.7) Active confirmed She has been [...] disease, pancreatic insufficiency, IBS, or others. 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 Problem 83971899 Fatty stool (K90.9) Active confirmed Recently, she has noticed that her stools appear to be more fatty and have been floating on top of the water. They are also vaughn in color. We'll have her submit stool tests for fecal fat and pancreatic elastase. Plan Of Treatment Pending Test Test Name Order Date PANCREATIC [id number] 07/23/2021 FECAL FAT, QUALITATIVE 07/23/2021 LACTOFERRIN, QN, STOOL 07/23/2021 Initiate SIBO 07/23/2021 Insurance Providers Payer Name Payer Address Payer Phone Subscriber Number Group Number Insured Name Patient Relationship to Insured Coverage Start Date Coverage End Date Medicare E2 [address] [address] [place] [address] [phone] [id number] Amaris Miley Self - patient is the insured AARP Medicare Advantage Choice PPO [address] [address] [place] [address] [phone] [id number] Miley Glez Self - patient is the insured Medical (General) History Medical History History ICD Code Diverticulosis Diabetes Hypertension Sleep Apnea/CPAP Atrial Fibrillation Surgical History Surgery Date(Month/Year) Colonoscopy (Dr. 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
--- OUTSIDE RECORDS SUMMARY | 2025-04-11 18:04 | XMS_ITS | Encounter Summary ---
Author Organization [employer] Address [address] [place] [address] Care Team Providers Care Lining Cleaner Name Role Phone Jaime Givens Primary Care Provider Encounter Details Date Type Department Care Team (Late st Contact Info) Description 11/03/2017 Lab Requisition [facility] [place] [address] [place] [address] Last Velásquez MD [address] [address] Encounter for general adult medical [...] on file Legal Sex Female 3:21 AM STEEL MOLDER Gender Identity Not on file Sexual Orientation [...] BNP OR PROBNP Routine 11/03/2017 6:36 AM STEEL MOLDER Encounter for general adult medical examination without abnormal findings BASIC METABOLIC PANEL Routine 11/03/2017 6:36 AM STEEL MOLDER Encounter for general adult medical examination without abnormal findings documented in this encounter Results * (ABNORMAL) BASIC METABOLIC PANEL (11/03/2017 6:36 AM STEEL MOLDER) SODIUM 141 136 - 145 mmol/L 11/03/2017 10:39 AM [facility] - [facility] POTASSIUM 3.9 3.5 - 5.0 mmol/L 11/03/2017 10:39 AM [facility] [employer] LABORATORY SERVICES - [facility] CHLORIDE 102 98 - 107 mmol/L 11/03/2017 10:39 AM [facility] - [facility] CO2 25 22 - 29 mmol/L 11/03/2017 10:39 AM STEEL MOLDER [employer] [facility] [facility] - [facility] CALCIUM 9.2 8.6 - 10.2 mg/dL 11/03/2017 10:39 AM [employer] [facility] - [facility] BUN 19 8 - 23 mg/dL 11/03/2017 10:39 AM [facility] [facility] - [facility] CREATININE 0.92 0.51 - 0.95 mg/dL 11/03/2017 10:39 AM STEEL MOLDER [employer] LABORATORY [facility] - . [facility] GLUCOSE 134(H) 74 - 99 mg/dL 11/03/2017 10:39 AM STEEL MOLDER [employer] [facility] [facility] GFR >60 >=60 mL/min/1.7 3 sq meter 11/03/2017 10:39 AM STEEL MOLDER [employer] [facility] [facility] - [facility] Comment: eGFR has not been validated for [...] mL/min/1.7 3 sq meter 11/03/2017 10:39 AM [employer] [facility] - [facility] ANION GAP 14 8 - 16 mmol/L 11/03/2017 10:39 AM [employer] [facility] Blood Venipuncture / Unknown 11/03/2017 6:36 AM STEEL MOLDER 11/03/2017 9:14 AM STEEL MOLDER Last Velásquez MD CHEMISTRY ORDERABLES Final R esult [facility]# [id number] [address] [place] [address] * (ABNORMAL) BRAIN NATRIURETIC PEPTIDE, BNP OR PROBNP (11/03/2017 6:36 AM STEEL MOLDER) PROBNP, N TERMINAL 349(H) <124 pg/mL 11/03/2017 10:39 AM STEEL MOLDER [facility] [employer] [facility] Comment: Reference values for screening purposes based on network cabler's recommendation: Patients less than 75 years: <125 [...] Blood Venipuncture / Unknown 11/03/2017 6:36 AM STEEL MOLDER 11/03/2017 9:14 AM STEEL MOLDER Last Velásquez MD CHEMISTRY ORDERABLES Final R esult Performing Organization Address City/[facility]/ZIP Co de Phone Number [facility]# [id number] [address] [place] [address] documented in this encounter Visit Diagnoses Diagnosis Encounter for general adult medical examination without abnormal findings Routine general medical examination at a health care facility documented in this encounter Care Teams Lining Cleaner Relationship Specialty Start Date End Date Jaime Givens DO [address] [facility] [address] [place] [phone] PCP - General Internal Medicine 06/14/18 documented as of this encounter
--- OUTSIDE RECORDS SUMMARY | 2025-04-11 18:04 | XMS_ITS ---
Author Name Auto Generated, Auto Generated Organization [facility] Address [address] [place] [address] Phone [phone] Care Team Providers Care Bowling Ball Molder Name Role Phone Last Velásquez Unavailable Functional Status No Results Mental Status No [...] oxyCODONE 5 mg tablet 5mg TABLET Oral [place] N Every 4 Hours Pain ThuOct 19 [...]
--- OUTSIDE RECORDS SUMMARY | 2025-04-11 18:04 | XMS_ITS | Encounter Summary ---
Author Organization [facility] Address [address] [place] [address] Care Team Providers Care Cadet Deck Name Role Phone Jaime Givens DO Primary Care Provider Encounter Details Date Type Department Care Team (Late st Contact Info) Description 10/21/2017 Lab Requisition [facility] [employer] [facility] [address] [place] [address] [address] Last Velásquez MD [address] [place] [address] Encounter for general adult medical [...] on file Legal Sex Female 3:21 AM AREA MANAGER Gender Identity Not on file Sexual Orientation Not on file Occupation Industry Job Start Date Job End Date Not on file Not on file Not on file Not on file documented as of this encounter Plan of Treatment Not on file documented as of this encounter Procedures Procedure Name Priority Date/Time Associated Diagnosis Comments CBC WITH DIFFERENTIAL Routine 10/21/2017 6:42 AM AREA MANAGER Encounter for general adult medical examination without abnormal findings COMPREHENSIVE METABOLIC PANEL Routine 10/21/2017 6:42 AM AREA MANAGER Encounter for general adult medical examination without abnormal findings documented in this encounter Results * (ABNORMAL) COMPREHENSIVE METABOLIC PANEL (10/21/2017 6:42 AM AREA MANAGER) Pathologist [facility] SODIUM 138 136 - 145 mmol/L 10/21/2017 10:[address] [facility] [employer] LAB[facility]ATORY SERVICES [facility] POTASSIUM 3.9 3.5 - 5.0 mmol/L 10/21/2017 10:[address] [facility] [employer] SERVICES - [facility] CHLORIDE 98 98 - 107 mmol/L 10/21/2017 10:[address] [facility] [employer] LAB[facility]ATORY SERVICES - [facility] CO2 28 22 - 29 mmol/L 10/21/2017 10:[address] [facility] [employer] [facility] CALCIUM 9.0 8.6 - 10.2 mg/dL 10/21/2017 10:[address] [facility] [employer] SERVICES - [facility] BUN 19 8 - 23 mg/dL 10/21/2017 10:[address] [facility] [employer] SERVICES - [facility] CREATININE 0.88 0.51 - 0.95 mg/dL 10/21/2017 10:[address] [facility] [employer] SERVICES - [facility] GLUCOSE 165(H) 74 - 99 mg/dL 10/21/2017 10:52 AM AREA MANAGER [employer] SERVICES - [facility] TOTAL PROTEIN 6.5(L) 6.7 - 8.6 g/dL 10/21/2017 10:52 AM AREA MANAGER [employer] [facility] ALBUMIN 3.5 3.5 - 5.2 g/dL 10/21/2017 10:52 AM [employer] LABORATORY SERVICES - [facility] BILIRUBIN TOTAL 0.6 0.2 - 1.1 mg/dL 10/21/2017 10:[address] [facility] [employer] SERVICES - [facility] ALKALINE PHOSPHATASE 203(H) 35 - 104 U/L 10/21/2017 10:52 AM [employer] SERVICES - [facility] AST 29 <33 U/L 10/21/2017 10:52 AM [employer] [facility] ALT 30 <34 U/L 10/21/2017 10:52 AM [employer] [facility] GFR >60 >=60 mL/min/1.7 3 sq meter 10/21/2017 10:52 AM [employer] [facility] Comment: eGFR has not [...] mL/min/1.7 3 sq meter 10/21/2017 10:52 AM [facility] [employer] [facility] ANION GAP 12 8 - 16 mmol/L 10/21/2017 10:52 AM [facility] [employer] [facility] Blood Venipuncture / Unknown 10/21/2017 6:[address] [facility] 10/21/2017 8:59 AM Critical access hospital [employer] [facility] - 10/21/2017 10:[address] [facility] Samples containing indocyanine green cause interferences on Total and/or Direct Bilirubin and must not be measured. Last Velásquez MD CHEMISTRY ORDERABLES Final R esult [facility] [employer] [facility]# [id number] [address] [place] [address] * (ABNORMAL) CBC WITH DIFFERENTIAL (10/21/2017 6:42 AM AREA MANAGER) [facility] WBC 6.0 4.0 - 9.8 K/uL 10/21/2017 10:21 AM [facility] [employer] [facility] RBC 3.67(L) 3.90 - 4.90 M/uL 10/21/2017 10:21 AM [facility] [employer] [facility] HEMOGLOBIN 10.7(L) 11.8 - 14.8 g/dL 10/21/2017 10:21 AM [facility] [employer] [facility] HEMATOCRIT 35.0(L) 35.5 - 44.0 % 10/21/2017 10:21 AM [facility] [employer] [facility] MCV 95.4 82.0 - 99.0 fL 10/21/2017 10:21 AM [facility] [employer] [facility] MCH 29.2 27.2 - 32.6 pg 10/21/2017 10:21 AM [employer] LAB[facility]ATORY [facility] MCHC 30.6(L) 31.5 - 35.5 g/dL 10/21/2017 10:21 AM AREA MANAGER [employer] LAB[facility]ATORY SERVICES [facility] RDW 15.2(H) 11.5 - 14.5 % 10/21/2017 10:21 AM [employer] [facility] RDW-STDEV 52.6(H) 37.1 - 48.7 fL 10/21/2017 10:21 AM [employer] [facility] PLATELETS 292 140 - 350 K/uL 10/21/2017 10:21 AM [employer] [facility] MPV 10.6 9.3 - 12.4 fL 10/21/2017 10:21 AM [employer] [facility] NEUTROPHILS 60 % 10/21/2017 10:21 AM [employer] [facility] LYMPHOCYTES 23 % 10/21/2017 10:21 AM [employer] [facility] MONOCYTES 12 % 10/21/2017 10:21 AM [employer] [facility] EOSINOPHILS 3 % 10/21/2017 10:21 AM [employer] [facility] BASOPHILS 1 % 10/21/2017 10:21 AM [employer] SERVICES - [facility] IMMATURE GRANULOCYTES 1 % 10/21/2017 10:21 AM [employer] [facility] Comment:IG (Immature Granulo cyte) count includes Metamyelocytes, Myelocytes, and Promyelocytes NEUTROPHIL ABSOLUTE 3.58 1.90 - 7.00 K/uL 10/21/2017 10:21 AM [employer] [facility] LYMPHOCYTE ABSOLUTE 1.38 0.70 - 4.50 K/uL 10/21/2017 10:21 AM [employer] [facility] MONOCYTE ABSOLUTE 0.73 0.10 - 1.30 K/uL 10/21/2017 10:21 AM [employer] [facility] EOSINOPHIL ABSOLUTE 0.18 0.00 - 0.70 K/uL 10/21/2017 10:21 AM [employer] [facility] BASOPHILS ABSOLUTE 0.03 0.00 - 0.20 K/uL 10/21/2017 10:21 AM [employer] [facility] IMMATURE GRANULOCYTES ABSOLUTE 0.06(H) 0.00 - 0.03 K/uL 10/21/2017 10:21 AM AREA MANAGER [facility] LABORATORY [facility] Blood Venipuncture / Unknown 10/21/2017 6:42 AM AREA MANAGER 10/21/2017 8:59 AM AREA MANAGER us Last Velásquez MD HEMATOLOGY ORDERABLES Final Result [facility] CLIA# [id number] [address] [facility] [place] [address] documented in this encounter Visit Diagnoses Diagnosis Encounter for general adult medical examination without abnormal findings Routine general medical examination at a health care facility documented in this encounter Care Teams Cadet Deck Relationship Specialty Start Date End Date Jaime Givens DO [address] [facility] [address] [place] [address] PCP - General Internal Medicine 06/14/18 documented as of this encounter
--- OUTSIDE RECORDS SUMMARY | 2025-04-11 18:04 | XMS_ITS | Encounter Summary ---
Author Organization [facility] Address [address] [place] [address] Phone Care Team Providers Care Mining Support Worker Name Role Phone Jaime Givens DO Primary Care Provider + [phone] Thad Arredondo MD Unavailable +[phone] Michi De La Paz MD PhD Unavailable [phone] Bebeto Murillo MD Unavailable [phone] Daija Smart DO Unavailable [phone] Michelle Sherman WATER PURIFIER Unavailable +[phone] Gin Syed MD Unavailable +[phone] Kavya Hall RN Unavailable [phone] Amelia Garner NP Unavailable [phone] Kavitha Hurst NP Unavailable [phone] Encounter Details Date Type Department Care Team [...] on file Legal Sex Female 1:11 AM INDUSTRIAL ENGINEERING Gender Identity Not on file Sexual Orientation [...] on filedocumented in this encounter Care Teams Mining Support Worker Relationship Specialty Start Date End Date Jaime Givens DO PCP - General 10/13/16 Thad Arredondo MD Consulting Physician Cardiology 05/14/18 Michi De La Paz MD PhD Referring Physician Cardiology 05/14/18 Bebeto Murillo MD Referring Physician Cardiology 09/09/19 Daija Smart DO [address] [facility] [place], [place] [id number] Base Remover Obstetrics and Gynecology 09/04/23 Michelle Sherman NP [address] [facility] [place] [address] Nurse Practitioner Obstetrics and Gynecology 12/22/23 Gin Syed MD [address] [address] Resident Internal Medicine 05/29/24 05/30/24 Kavya Hall, RN [address] [facility] [address] [place] [address] [facility] Outpatient Telemetry Monitor 06/03/24 06/28/24 Amelia Garner NP [address] [facility] [place] [address] Nurse Practitioner Obstetrics and Gynecology 06/27/24 Kavitha Hurst NP [address] [facility] [place] [address] Nurse Practitioner Obstetrics and Gynecology 11/29/24 documented as of this encounter
--- OUTSIDE RECORDS SUMMARY | 2025-04-11 18:04 | XMS_ITS | Encounter Summary ---
Author Organization [facility] Address [address] [place] [address] Care Team Providers Care Wine Merchant Name Role Phone Jaime Givens DO Primary Care Provider + [phone] Thad Arredondo MD Unavailable +[phone] Michi De La Paz MD PhD Unavailable [phone] Bebeto Murillo MD Unavailable [phone] Daija Smart DO Unavailable [phone] Michelle Sherman MARKETING TRAFFIC MANAGER Unavailable [phone] Gin Syed MD Unavailable +[phone] Kavya Hall RN Unavailable +[phone] Amelia Garner NP Unavailable [phone] Kavitha Hurst NP Unavailable [phone] Encounter Details Date Type Department Care Team (Late st Contact Info) Description 10/08/[address] [place] [address] Susan Leach, RT Social History Tobacco Use Types Packs/Day Years Used Date Smoking Tobacco: Former Smokeless Tobacco: Never Comments:quit 1986 Alcohol Use Standard Drinks/Week Comments No 0 (1 standard drink = 0.6 oz pur e alcohol) Comments No Sex and Gender Information Value Date Recorded Sex Assigned at Not on file 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 Sex 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 Gender Identity Not on file Sexual Orientation Not on file Occupation Industry Job Start Date Job End Date Retired Not on file Not on file Not on file documented as of this encounter Plan of Treatment Not on file documented as of this encounter Visit Diagnoses Not on filedocumented in this encounter Care Teams Wine Merchant Relationship Specialty Start Date End Date Jaime Givens DO PCP - General 10/13/16 Thad Arredondo MD Consulting Physician Cardiology 05/14/18 Michi De La Paz MD PhD Referring Physician Cardiology 05/14/18 Bebeto Murillo MD Referring Physician Cardiology 09/09/19 Daija Smart DO [address] [facility] EXEC[facility]IVE [place], [place] [id number] Art Teacher Obstetrics and Gynecology 09/04/23 Michelle Sherman NP [address] [place] [address] Nurse Practitioner Obstetrics and Gynecology 12/22/23 Gin Syed MD [address] [facility] [address] [place] [address] Resident Internal Medicine 05/29/24 05/30/24 Kavya Hall RN [address] [facility] [address] [place], [place] [address] SHOP Outpatient Shirt Trimmer 06/03/24 06/28/24 Amelia Garner NP [address] [place] [address] Nurse Practitioner Obstetrics and Gynecology 06/27/24 Kavitha Hurst NP [address] [place] [address] Nurse Practitioner Obstetrics and Gynecology 11/29/24 documented as of this encounter
[2025-04-11 18:41] VITALS: BP 151/64; PULSE 79; RESP 16; TEMP 36.4; O2SAT 98
[2025-04-11 20:30] VITALS: BP 147/53; PULSE 84; TEMP 36.1; O2SAT 96
--- NOTE | 2025-04-11 20:55 | ECG_ITS ---
Test Date: 2025-04-11 21:06:31 Measurements Intervals Friedens Rate: 72 P: 0 CO: 0 QRS: 73 QRSD: 117 T: 91 QT: 405 QTc: 444 Interpretive Statements ATRIAL FIBRILLATION INCOMPLETE RIGHT BUNDLE BRANCH BLOCK DELAYED PRECORDIAL R/S TRANSITION BORDERLINE ST-T WAVE ABNORMALITY- INF/LAT LEADS BASELINE ARTIFACT- I, III, AVL, V5-V6 ABNORMAL ECG No previous ECG available for comparison Electronically Signed On 04-12-2025 06:15:10 CDT by Abdifatah Martines D.O.
--- OUTSIDE RECORDS SUMMARY | 2025-04-11 20:55 | XMS_ITS ---
Author Name Auto Generated, Auto Generated Organization [facility] Address [address] [place] [address] Phone [phone] Care Team Providers Care Television Production Clerk Name Role Phone Last Velásquez Unavailable Functional [...] oxyCODONE 5 mg tablet 5mg TABLET Oral HI N Every 4 Hours Pain ThuOct 19 [...]
--- OUTSIDE RECORDS SUMMARY | 2025-04-11 20:55 | XMS_ITS | Encounter Summary ---
Author Organization [facility] Address [address] [place] [address] Care Team Providers Care Histologist Technologist Name Role Phone Jaime Givens DO Primary Care Provider Encounter Details Date Type Department Care Team (Late st Contact Info) Description 09/09/2000 Outpatient Historical HIS MD Yonny MORAES Carolyn, MD [address] [place] [address] Social History Tobacco Use Types Packs/Day Years Used Date Smoking Tobacco: Never Assessed Comments Unknown Sex and Gender Information Value Date Recorded Sex Assigned at Not on file Legal Sex Female 3:21 AM SECURITY ORDERLY Gender Identity Not on file Sexual Orientation Not on file documented as of this encounter Plan of Treatment Not on file documented as of this encounter Visit Diagnoses Not on filedocumented in this encounter Care Teams Histologist Technologist Relationship Specialty Start Date End Date Jaime Givens DO [address] [facility] [address] [place] [address] PCP - General Internal Medicine 06/14/18 documented as of this encounter
--- OUTSIDE RECORDS SUMMARY | 2025-04-11 20:55 | XMS_ITS | Encounter Summary ---
Author Organization [facility] Healthcare Address [address] [place] [address] Care Team Providers Care General Studies Program Chair Name Role Phone Jaime Givens DO Primary Care Provider + [phone] Thad Arredondo MD Unavailable +[phone] Michi De La Paz MD PhD Unavailable [phone] Bebeto Murillo MD Unavailable [phone] Daija Smart DO Unavailable [phone] Michelle Sherman SEWAGE PLANT SUPERVISOR Unavailable [phone] Gin Syed MD Unavailable [phone] Kavya Hall RN Unavailable [phone] Amelia Garner NP Unavailable [phone] Kavitha Hurst NP Unavailable [phone] Encounter Details Date Type Department Care Team (Late st Contact Info) Description 10/08/[address] [place] [address] Susan Leach, RT Social History Tobacco Use Types Packs/Day Years Used Date Smoking Tobacco: Former Smokeless Tobacco: Never Comments:quit 1986 Alcohol Use Standard Drinks/Week Comments No 0 (1 standard drink = 0.6 oz pur e alcohol) Comments No Sex and Gender Information Value Date Recorded Sex Assigned at Not on file Legal Sex Female 1:11 AM CAREER COACH Gender Identity Not on file Sexual Orientation Not on file Occupation Industry Job Start Date Job End Date Retired Not on file Not on file Not on file documented as of this encounter Plan of Treatment Not on file documented as of this encounter Visit Diagnoses Not on filedocumented in this encounter Care Teams General Studies Program Chair Relationship Specialty Start Date End Date Jaime Givens DO PCP - General 10/13/16 Thad Arredondo MD Consulting Physician Cardiology 05/14/18 Michi De La Paz MD PhD Referring Physician Cardiology 05/14/18 Bebeto Murillo MD Referring Physician Cardiology 09/09/19 Daija Smart DO [address] [facility] EXEC[facility]IVE [place], [place] [id number] Collection Systems Technician Obstetrics and Gynecology 09/04/23 Michelle Sherman NP [address] [place] [address] Nurse Practitioner Obstetrics and Gynecology 12/22/23 Gin Syed MD [address] [facility] [address] [place] [address] Resident Internal Medicine 05/29/24 05/30/24 Kavya Hall RN [address] [facility] [address] [place], [place] [address] SHOP Outpatient Avionics Systems Integration Specialist 06/03/24 06/28/24 Amelia Garner NP [address] [place] [address] Nurse Practitioner Obstetrics and Gynecology 06/27/24 Kavitha Hurst NP [address] [place] [address] Nurse Practitioner Obstetrics and Gynecology 11/29/24 documented as of this encounter
--- OUTSIDE RECORDS SUMMARY | 2025-04-11 20:55 | XMS_ITS | Encounter Summary ---
Author Organization [facility] Address [address] [place] [address] Phone Care Team Providers Care Women'S Soccer Coach Name Role Phone Jaime Givens DO Primary Care Provider + [phone] Thad Arredondo MD Unavailable +[phone] Michi De La Paz MD PhD Unavailable [phone] Bebeto Murillo MD Unavailable [phone] Daija Smart DO Unavailable [phone] Michelle Sherman SENIOR LINUX SYSTEMS ADMINISTRATOR Unavailable [phone] Amelia Garner NP Unavailable [phone] Kavitha Hurst SENIOR LINUX SYSTEMS ADMINISTRATOR Unavailable [phone] Encounter Details Date Type Department Care Team (Late st Contact Info) Description 04/10/2025 3:30 PM CDT Office Visit [facility] Cardiology [address] [facility] 8th [place] [address] [place] [address] Michi De La Paz MD PhD [address] [facility] [address] [place] [address] Atrial fibrillation, unspecified type (HCC) (Primary Dx); Essential hypertension; Chronic diastolic heart failure (HCC); Hypertension, essential Social History Tobacco Use Types Packs/Day Years Used Date Smoking Tobacco: Former Smokeless Tobacco: Never Comments:quit 1986 Alcohol Use Standard Drinks/Week Comments No 0 (1 standard drink = 0.6 oz pur e alcohol) [facility] Utilities Answer Date Recorded In the past [...] often do you attend chur ch or latter day services? 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 HOT DIP TINNING Gender Identity Not on file Sexual Orientation [...] able to tolerate oral Nystatin Entex Hc [[id number]] Unknown Racing heart Phenylpropanolamine Unknown Phenylpropanolamine Hcl [...] documented as of this encounter Care Teams Women'S Soccer Coach Relationship Specialty Start Date End Date Jaime Givens DO PCP - General 10/13/16 Thad Arredondo MD Consulting Physician Cardiology 05/14/18 Michi De La Paz MD PhD Referring Physician Cardiology 05/14/18 Bebeto Murillo MD Referring Physician Cardiology 09/09/19 Daija Smart DO [address] [place] [address] Mechanical Design Drafter Obstetrics and Gynecology 09/04/23 Michelle Sherman NP [address] [place] [address] Nurse Practitioner Obstetrics and Gynecology 12/22/23 Amelia Garner NP [address] [facility] [place] [address] Nurse Practitioner Obstetrics and Gynecology 06/27/24 Kavitha Hurst NP [address] [facility] [place] [address] Nurse Practitioner Obstetrics and Gynecology 11/29/24 documented as of this encounter
--- OUTSIDE RECORDS SUMMARY | 2025-04-11 20:55 | XMS_ITS | Encounter Summary ---
Author Organization [facility] Address [address] [place] [address] Phone Care Team Providers Care Electrical Test Technician Name Role Phone Jaime Givens DO Primary Care Provider + [phone] Thad Arredondo MD Unavailable +[phone] Michi De La Paz MD PhD Unavailable [phone] Bebeto Murillo MD Unavailable [phone] Daija Smart DO Unavailable [phone] Michelle Sherman STIPPLER Unavailable [phone] Gin Syed MD Unavailable +[phone] Kavya Hall RN Unavailable [phone] Amelia Garner NP Unavailable [phone] Kavitha Hurst NP Unavailable [phone] Encounter Details Date Type Department Care Team [...] on file Legal Sex Female 1:11 AM AMUSEMENT RIDE OPERATOR Gender Identity Not on file Sexual [...] on filedocumented in this encounter Care Teams Electrical Test Technician Relationship Specialty Start Date End Date Jaime Givens DO PCP - General 10/13/16 Thad Arredondo MD Consulting Physician Cardiology 05/14/18 Michi De La Paz MD PhD Referring Physician Cardiology 05/14/18 Bebeto Murillo MD Referring Physician Cardiology 09/09/19 Daija Smart DO [address] [facility] EXECUTIVE [place], [place] [id number] Ware Dresser Obstetrics and Gynecology 09/04/23 Michelle Sherman NP [address] [facility] [place] [address] Nurse Practitioner Obstetrics and Gynecology 12/22/23 Gin Syed MD [address] [address] Resident Internal Medicine 05/29/24 05/30/24 Kavya Hall, RN [address] [facility] [address] [place] [address] SHOP Outpatient Certified Adapted Physical Educator 06/03/24 06/28/24 Amelia Garner NP [address] [facility] [place] [address] Nurse Practitioner Obstetrics and Gynecology 06/27/24 Kavitha Hurst NP [address] [facility] [place] [address] Nurse Practitioner Obstetrics and Gynecology 11/29/24 documented as of this encounter
--- OUTSIDE RECORDS SUMMARY | 2025-04-11 20:55 | XMS_ITS | Encounter Summary ---
Author Organization [facility] Address [address] [place] [address] Phone Care Team Providers Care Pad Machine Feeder Name Role Phone Jaime Givens DO Primary Care Provider + [phone] Thad Arredondo MD Unavailable [phone] Michi De La Paz MD PhD Unavailable [phone] Bebeto Murillo MD Unavailable [phone] Daija Smart DO Unavailable [phone] Michelle Sherman SCIENTIFIC PROCESS OPERATOR Unavailable [phone] Amelia Garner NP Unavailable [phone] Kavitha Hurst SCIENTIFIC PROCESS OPERATOR Unavailable [phone] Encounter Details Date Type Department Care Team (Late st Contact Info) Description 04/10/2025 Results Follow-Up [facility] Cardiology [address] [facility] Advanced Medicine 8th [place] [address] [place] [address] Michi De La Paz MD PhD [address] [facility] [address] [place] [address] ECG 12 lead Social History Tobacco Use Types Packs/Day Years Used Date Smoking Tobacco: Former Smokeless Tobacco: Never Comments:quit 1986 Alcohol Use Standard Drinks/Week Comments No 0 (1 standard drink = 0.6 oz pur e alcohol) [facility] Utilities Answer Date Recorded In the [...] often do you attend chur ch or pentecostalism services? 1 to 4 times per year 06/03/2024 Do you belong to any clubs o r organizations such as scientology groups, unions, fraternal or athletic groups, or [...] any time in the past 12 m [facility], were you homeless or living in a mcfp (including now)? No 06/03/2024 Personal Safety Answer Date Recorded Have you ever been in or are you currently in a harmful physical or emotional relationship or is someone making you feel afraid or unsafe? Denies 05/31/2024 Comments No Sex and Gender Information Value Date Recorded Sex Assigned at Not on file Legal Sex Female 1:11 AM PRODUCTION CONTROLLER Gender Identity Not on file Sexual Orientation Not on file Occupation Industry Job Start Date Job End Date Retired Not on file Not on file Not on file documented as of this encounter Plan of Treatment Not on file documented as of this encounter Visit Diagnoses Not on filedocumented in this encounter Care Teams Pad Machine Feeder Relationship Specialty Start Date End Date Jaime Givens DO PCP - General 10/13/16 Thad Arredondo MD Consulting Physician Cardiology 05/14/18 Michi De La Paz MD PhD Referring Physician Cardiology 05/14/18 Bebeto Murillo MD Referring Physician Cardiology 09/09/19 Daija Smart DO [address] [place] [address] Staff Analyst Obstetrics and Gynecology 09/04/23 Michelle Sherman NP [address] [place] [address] Nurse Practitioner Obstetrics and Gynecology 12/22/23 Amelia Garner NP [address] [place] [address] Nurse Practitioner Obstetrics and Gynecology 06/27/24 Kavitha Hurst NP [address] [place] [address] Nurse Practitioner Obstetrics and Gynecology 11/29/24 documented as of this encounter
--- OUTSIDE RECORDS SUMMARY | 2025-04-11 20:55 | XMS_ITS | Encounter Summary ---
Author Organization [facility] Address [address] [place] [address] Phone Care Team Providers Care Program Project Analyst Name Role Phone Jaime Givens DO Primary Care Provider + [phone] Thad Arredondo MD Unavailable [phone] Michi De La Paz MD PhD Unavailable [phone] Bebeto Murillo MD Unavailable [phone] Daija Smart DO Unavailable [phone] Michelle Sherman FINANCE CONTROLLER Unavailable [phone] Gin Syed MD Unavailable [phone] Kavya Hall RN Unavailable [phone] Amelia Garner NP Unavailable [phone] Kavitha Hurst NP Unavailable [phone] Encounter Details Date Type Department Care Team [...] on file Legal Sex Female 1:11 AM 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 TECH Gender Identity Not on file Sexual Orientation [...] on filedocumented in this encounter Care Teams Program Project Analyst Relationship Specialty Start Date End Date Jaime Givens DO PCP - General 10/13/16 Thad Arredondo MD Consulting Physician Cardiology 05/14/18 Michi De La Paz MD PhD Referring Physician Cardiology 05/14/18 Bebeto Murillo MD Referring Physician Cardiology 09/09/19 Daija Smart DO [address] [place] [id number] Licensed Professional Counselor Obstetrics and Gynecology 09/04/23 Michelle Sherman NP [address] [place] [id number] Nurse Practitioner Obstetrics and Gynecology 12/22/23 Gin Syed MD [address] [facility] [address] [place], [place] [id number] Resident Internal Medicine 05/29/24 05/30/24 Kavya Hall, RN [address] [employer] [address] [place], [place] [id number] SHOP Outpatient Tow Truck Driver 06/03/24 06/28/24 Amelia Garner NP [address] [place] [address] Nurse Practitioner Obstetrics and Gynecology 06/27/24 Kavitha Hurst NP [address] [place] [address] Nurse Practitioner Obstetrics and Gynecology 11/29/24 documented as of this encounter
--- OUTSIDE RECORDS SUMMARY | 2025-04-11 20:56 | XMS_ITS | Clinical Summary ---
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 Gender Identity Not on file Sexual Orientation Not on file Occupation Industry Job Start Date Job End Date Not on file Not on file Not on file Not on file Last Filed Vital Signs Vital Sign Reading Time Taken Comments Blood Pressure 128/67 06/21/2018 11:27 AM CDT Pulse 67 07/04/2015 12:44 PM YIELD IMPROVEMENT ENGINEER Temperature - - Respiratory Rate 20 06/24/2012 [...] Most Recently Relevant to Health Maintenance Insurance [facility] BLUE PREFERRED Care Teams Dentistry Professor Relationship Specialty Start Date End Date Jaime Givens DO [address] [address] PCP - General Internal Medicine 06/14/18
--- OUTSIDE RECORDS SUMMARY | 2025-04-11 20:56 | XMS_ITS | Encounter Summary ---
Author Organization [facility] Address [address] [place] [address] Care Team Providers Care Automotive Tire Testing Supervisor Name Role Phone Jaime Givens DO Primary Care Provider Encounter Details Date Type Department Care Team (Late st Contact Info) Description 11/06/2017 Lab Requisition [facility] Laboratory Services [address] [facility] [address] [place] [address] Last Velásquez MD [address] [place] [address] Essential (primary) hypertension Social History Tobacco Use Types Packs/Day Years Used Date Smoking Tobacco: Former Cigarettes Q uit: 08/31/1986 Smokeless Tobacco: Former Alcohol Use Standard Drinks/Week Comments No 0 (1 standard drink = 0.6 oz pur e alcohol) Comments No Sex and Gender Information Value Date Recorded Sex Assigned at Not on file 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 Gender Identity Not on file Sexual Orientation Not on file Occupation Industry Job Start Date Job End Date Not on file Not on file Not on file Not on file documented as of this encounter Plan of Treatment Not on file documented as of this encounter Visit Diagnoses Diagnosis Essential (primary) hypertension Unspecified essential hypertension documented in this encounter Care Teams Automotive Tire Testing Supervisor Relationship Specialty Start Date End Date Jaime Givens DO [address] [facility] [address] [place] [address] PCP - General Internal Medicine 06/14/18 documented as of this encounter
--- OUTSIDE RECORDS SUMMARY | 2025-04-11 20:56 | XMS_ITS | Clinical Summary ---
Author Organization [facility] Address [address] [place] [address] Care Team Providers Care Hr Advisor Name Role Phone Jaime Givens DO Primary Care Provider [phone] Thad Arredondo MD Unavailable Michi De La Paz MD PhD Unavailable [phone] Bebeto Murillo MD Unavailable [phone] Daija Smart DO Unavailable [phone] Michelle Sherman SALVAGE MECHANIC Unavailable [phone] Amelia Garner NP Unavailable [phone] Kavitha Hurst NP Unavailable [phone] Allergies Active Allergy Reactions Criticality Noted Date [...] eye. Assessment & Plan (07/23/2020 3:53 PM PROGRAM INSTRUCTOR): Becoming visually significant OS. Hepatic steatosis 01/26/2020 [...] Uses CPAP at home - cont here [facility] Body mass index 40+ - severely [...] well so needs to be transferred to [facility] for cardiology. Given progressive SOB and decreasing Hgb, felt unsafe to d/c - PPI BID - trend CBC - give IV dextran x1 - cont PO iron - aT&S; transfuse <7 - on transfer list to 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 I have asked her to return to see us roughly 4-6 weeks for re-evaluation. Encounters Date Type Department Care Team Description 04/10/2025 3:30 PM CDT Office Visit [facility] Cardiology [address] [place] [address] 8th [place] [address] [place] [address] Michi De La Paz MD PhD Atrial fibrillation, unspecified type (HCC) (Primary Dx); Essential hypertension; Chronic diastolic heart failure (HCC); Hypertension, essential 04/10/2025 Results Follow-Up [facility] Cardiology [facility] 8th [place] [address] [place] [address] Michi De La Paz MD PhD ECG 12 lead 03/06/2025 1:45 PM CDT Office Visit [facility] Ophthalmology [address] [facility] 6th [place] [address] Mariza Engel MD Age-related nuclear cataract of both eyes (Primary Dx); 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 PATHOLOGY [address] [facility] 3rd [place] [address] Complex atypical endometrial hyperplasia Discharge Disposition: Discharge to home or self care 01/12/2025 4:00 PM CDT Office Visit [facility] Obstetrics and Gynecology [address] [facility] 13th [place] [address] Jael Mullen MD Complex atypical endometrial hyperplasia (Primary Dx) 01/12/2025 Telephone [facility] Obstetrics and Gynecology [address] [facility] 13th [place] [address] Stefania Treadwell RN from Last 3 Months [...] drink = 0.6 oz pur e alcohol) [facility] Utilities Answer Date Recorded In the past 12 months has [employer], gas, oil, or water [employer] threatened to shut off services in your home? No 06/03/2024 Social Connection and Isolation Panel Answer Date Recorded In a typical week, how many times do you talk on the phone with family, friends, or neighbors? More than three times a week 06/03/2024 How often do you get togethe r with friends or relatives? Twice a week 06/03/2024 How often do you attend [facility] or restorationism services? 1 to 4 times per year 06/03/2024 Do you belong to any clubs o r organizations such as sabianist groups, unions, fraternal or athletic groups, or [...] any time in the past 12 m [facility], were you homeless or living in a retirement (including now)? No 06/03/2024 Personal Safety Answer Date Recorded Have you ever been in or are you currently in a harmful physical or emotional relationship or is someone making you feel afraid or unsafe? Denies 05/31/2024 Comments No Sex and Gender Information Value Date Recorded Sex Assigned at Not on file Legal Sex Female 1:11 AM PROGRAM INSTRUCTOR Gender Identity Not on file Sexual Orientation [...] 8:45 AM CDT Complex atypical endometrial hyperplasia SC ENDOMETRIAL BX W/WO ENDOCERVIX BX W/O DILAT [...] CREATININE RATIO, URINE Routine 10/11/2019 11:56 AM PROGRAM INSTRUCTOR from Last 3 Months or Most Recently Relevant to Health Maintenance Results * ECG 12 lead (04/10/2025 3:53 PM CDT) Michi De La Paz MD PhD ECG ORDERABLES Edited Result - Final * High Risk HPV DNA Detection with Genotyping (Molecular component) (01/13/2025 8:45 AM CDT) HPV HR [address] [facility] HPV HR 18 Not Detected Not Detected [facility] HPV HR Non 16/18 Not Detected Not Detected [facility] Comment: Interpretive Data Nucleic acid amplification for [...] this test have been verified by the [facility] Molecular Infectious Disease laboratory. Correlate with separately reported cytology results, as applicable. Interpretive data last revised 23 [facility] 01/13/2025 8:45 AM CDT 01/18/2025 10:12 AM CDT Narrative [facility] - 01/19/2025 12:44 AM CDT Clinical history and diagnosis->h/o CAH Number of vials->1 Testing type->Screening Last menstrual period (date if known)->n/a Menstrual status->Postmenopausal Jael Mullen MD LAB BODY FLUIDS AND STOOL S ORDERABLES Final Result [facility] [address] [facility] Department [place] [address] [facility] * Pap and High Risk HPV and Genotyping (Cytology Component) (01/13/2025 8:45 AM CDT) Thin prep (Pap test) 01/13/2025 8:45 AM CDT 01/13/2025 11:09 AM CDT Narrative PATHOLOGY [facility] - 01/24/2025 4:13 PM CDT EPIC results best viewed via link to PDF [facility] Lita Villalpando Laboratory of [place] [address] Note to Patients: This report may contain [...] Gender: F : 1955 (Age: 69) Address: [address] [place], [place] [address] Hospital #: [id number] Service: NUT SIFTER Location: Patient Type: [facility] SPECIMEN Taken: 01/13/2025 Received: 01/13/2025 Accessioned: 01/18/2025 [...] this test have been verified by the [facility] Molecular Infectious Disease laboratory. Correlate with reported cytology results, as applicable. Interpretive data last revised 23 [facility]01/24/2025 16:13 KETTY Del Castillo([facility]) Report Electronically Reviewed and Signed Out By KETTY Del Castillo([facility]) 01/24/2025 16:13:20 Cervicovaginal Cytology (Pap Test) Disclaimer: The Pap test is a screening test used to detect cervical cancer and its precursors; it is not a diagnostic procedure. False negative and false positive results do occur. Pap test results should be interpreted in the context of pertinent clinical information and biopsy results as indicated. [facility] Clinical Laboratory Improvement Amendments (CLIA) mandate that cytologic and histologic results be correlated for laboratory director supplier quality & improvement standards. FOR ALL HIGH-GRADE CASES [...] determined by the Surgical Pathology Department at [facility] as part of an ongoing director quality systems program and in compliance with federally mandated [...] determined by the Surgical Pathology Department of [facility]. It has not been cleared or approved by the U. S. Food and Drug Administration. Jael Mullen MD LAB CYTOLOGY ORDERABLES F inal Result PATHOLOGY [facility] 3rd Floor [place], [place] [phone] * Surgical pathology (01/13/2025 8:45 AM CDT) Tissue (Endometrial biopsy) 01/13/2025 8:45 AM CDT 01/13/2025 4:36 PM [address] PATHOLOGY [facility] - 01/16/2025 4:29 PM CDT EPIC results best viewed via link to PDF [facility] Lita Villalpando Laboratory [place] [address] Note to Patients: This report may contain [...] Gender: F : 1955 (Age: 69) Address: [address] [place], [place] [address] Hospital #: [id number] Taken:01/13/2025 Received:01/13/2025 Reported: 01/16/2025 Patient Type: [facility] SPECIMEN Service: Laboratory Location: Physician(s): Jael Mullen [...] Electronically Reviewed and Signed Out By Bronson hSelton M.D., Ph.D. 01/16/2025 16:29:03 Eugenie Zurita M.D. [...] Surgical Pathology and Flow Cytometry Departments at [facility] as part of an ongoing director quality systems program and in compliance with federally mandated [...] Surgical Pathology and Flow Cytometry Departments of [facility]. It has not been cleared or approved by the U. S. Food and Drug Administration. IMAGES AND SCANNED DOCUMENTS, IF INCLUDED, ONLY VIEWABLE IN PDF VERSION OF REPORT Jael Mullen MD LAB PATHOLOGY ORDERABLES Final Result PATHOLOGY [facility] 3rd Floor [place], [place] [phone] * SC ENDOMETRIAL BX W/WO ENDOCERVIX BX W/O DILAT [...] Female Attending MD: Darleen May M.D. Room: [facility] ENDOSCOPY Note Status: Finalized Procedure: Colonoscopy [...] scope was passed under direct vision.The CF [id number] endoscope was introduced through the anus [...] clip was successfully placed (MR conditional). Clip title curator: [place] [employer]. There was no bleeding at the end of the procedure. The exam was otherwise without abnormality on direct and retroflexion views. Impression: - Hemorrhoids found on perianal exam. - Three 4 to 10 mm polyps in the transverse colonand in the ascending colon, removed with a cold snare. Resected and retrieved. Clip (MR conditional) was placed. Clip title curator: [employer]. - The examination was otherwise normal [...] and children were not included. (Diabetes Care 31:6011-4937, 2008). The eAG is not equivalent to a fasting glucose. Blood 05/26/2024 1:24 PM CDT 05/26/2024 1:25 PM CDT Anabelle Mckeon MD LAB BLOOD ORDERABLES Final R esult [facility] [address] [facility]. [place] [address] * Screening Mammogram Bilateral W Jose (04/03/2023 2:45 PM CDT) Anatomical Region Laterality Modality Breast Bilateral Mammography Narrative 04/05/2023 9:52 AM CDT Mammogram Technique: Bilateral Digital Breast Tomosynthesis, Bilateral C-view 2D Screening mammogram. Views obtained: bilateral craniocaudal and bilateral mediolateral oblique. Computer Aided Detection was performed. Mammogram Findings: The present examination has been compared to prior imaging studies performed at [facility] on 12/31/2021, at [facility] on 10/09/2020, and at [place], [place] on 06/21/2018. There are scattered areas [...] compared to prior imaging studies performed at [facility] on 12/31/2021, at [facility] on 10/09/2020, and at [place], [place] on 06/21/2018. There are scattered areas of fibroglandular density. There is no suspicious abnormality in either breast. Impression: There is no mammographic evidence of malignancy. Annual screening mammography is recommended. OVERALL FINAL ASSESSMENT: BI-RADS CATEGORY 1: Negative. Faiza Alberto NP IMG MAMMO PROCEDURES Fin al Result * (ABNORMAL) Lipid panel (01/15/2020 11:33 PM CDT) Cholesterol 129 30 - 199 mg/dL [facility] Comment: Interpretive Data Ages < or = [...] revised on 2018. Triglycerides 108 <=149 mg/dL [facility] Comment: Interpretive Data Ages < or = [...] revised on 2018. HDL 29(L) >=40 mg/dL [facility] Comment: Interpretive Data Ages < or = [...] on 2018. LDL, calculated 78 <=129 mg/dL [facility] Comment: Interpretive Data Ages < or = [...] revised on 2018. Non-HDL Cholesterol 100 mg/dL [facility] Comment: Interpretive Data Ages < or = [...] last revised on 2018. Chol/HDL ratio 4 [facility] Blood specimen (specimen) 01/15/2020 11:33 PM CDT 01/15/2020 11:47 PM CDT us Carroll Osei MD LAB BLOOD ORDERABLES Fi nal Result [facility] One [facility] [place] [address] * (ABNORMAL) Albumin Creatinine Ratio, Urine (10/11/2019 11:56 AM PROGRAM INSTRUCTOR) Pathologist [facility] Creatinine, ur 150 20 - 275 [...] a diagnostic category. 10/11/2019 11:5 6 AM PROGRAM INSTRUCTOR 10/11/2019 12:02 PM PROGRAM INSTRUCTOR Narrative [facility] - 10/12/2019 6:06 PM PROGRAM INSTRUCTOR FASTING:YES FASTING: YES Resulting Agency Comment Performing Organization Information: Site ID: [place] Name: [facility] Address: [address] [place] [address] Director: Al Sosa D.O., MPH us [facility] [facility]ak[facility] SALVAGE MECHANIC LAB URINE ORDERABLES Final Res ult [facility] [place] from Last 3 Months or Most Recently Relevant to Health Maintenance Insurance [facility] CHOICE PLUS [facility] HMO/PPO Address: [address] [address] [place] [address] CHOICE [facility] PPO [place] [facility] MEDIC[facility] CHOICE [facility]US [facility] HMO/PPO Address: [address] [address] [place] [address] CHOICE PRF PPO [place] [facility] CHOICE [facility]US [facility] HMO/PPO Address: [address] [address] [place] [address] MEDICARE [facility] MEDICARE [facility] MEDICARE [facility] MEDICARE [facility] Advance Directives For more information, please contact: [phone] Documents on File Type Date Recorded Patient Casino Cage Cashier Expl anation ADVANCE DIRECTIVE 10/23/2017 10:45 PM [...] 9:11 AM 01/19/2020 8:03 PM Care Teams Hr Advisor Relationship Specialty Start Date End Date Jaime Givens DO PCP - General 10/13/16 Thad Arredondo MD Consulting Physician Cardiology 05/14/18 Michi De La Paz MD PhD Referring Physician Cardiology 05/14/18 Bebeto Murillo MD Referring Physician Cardiology 09/09/19 Daija Smart DO [address] [place] [address] Human Services Supervisor Obstetrics and Gynecology 09/04/23 Michelle Sherman NP [address] [facility] [place] [address] Nurse Practitioner Obstetrics and Gynecology 12/22/23 Amelia Garner NP [address] [facility] [place] [address] Nurse Practitioner Obstetrics and Gynecology 06/27/24 Kavitha Hurst NP [address] [facility] [place] [address] Nurse Practitioner Obstetrics and Gynecology 11/29/24
--- OUTSIDE RECORDS SUMMARY | 2025-04-11 20:56 | XMS_ITS ---
Author Name Auto Generated, Auto Generated Organization [facility] Address [address] [place] [address] Phone [phone] Care Team Providers Care Forms Analyst Name Role Phone Last Velásquez Unavailable Functional [...] oxyCODONE 5 mg tablet 5mg TABLET Oral VA N Every 4 Hours Pain ThuOct 19 [...]
--- OUTSIDE RECORDS SUMMARY | 2025-04-11 20:56 | XMS_ITS | Encounter Summary ---
Author Organization [facility] Address [address] [place] [address] Care Team Providers Care Dance Teacher Name Role Phone Jaime Givens DO Primary Care Provider Encounter Details Date Type Department Care Team (Late st Contact Info) Description 10/21/2017 Lab Requisition [facility] [employer] [facility] [address] [place] [address] [place] [address] Last Velásquez MD [address] [place] [address] Encounter for general adult medical [...] on file Legal Sex Female 3:21 AM WOMEN'S STUDIES LECTURER Gender Identity Not on file Sexual Orientation Not on file Occupation Industry Job Start Date Job End Date Not on file Not on file Not on file Not on file documented as of this encounter Plan of Treatment Not on file documented as of this encounter Procedures Procedure Name Priority Date/Time Associated Diagnosis Comments CBC WITH DIFFERENTIAL Routine 10/21/2017 6:42 AM WOMEN'S STUDIES LECTURER Encounter for general adult medical examination without abnormal findings COMPREHENSIVE METABOLIC PANEL Routine 10/21/2017 6:42 AM WOMEN'S STUDIES LECTURER Encounter for general adult medical examination without abnormal findings documented in this encounter Results * (ABNORMAL) COMPREHENSIVE METABOLIC PANEL (10/21/2017 6:42 AM WOMEN'S STUDIES LECTURER) Pathologist [facility] SODIUM 138 136 - 145 mmol/L 10/21/2017 10:52 AM [facility] [employer] [facility] POTASSIUM 3.9 3.5 - 5.0 mmol/L 10/21/2017 10:52 AM [facility] [employer] SERVICES - [facility] CHLORIDE 98 98 - 107 mmol/L 10/21/2017 10:52 AM [facility] [employer] [facility] CO2 28 22 - 29 mmol/L 10/21/2017 10:52 AM [facility] [employer] [facility] CALCIUM 9.0 8.6 - 10.2 mg/dL 10/21/2017 10:52 AM [facility] [employer] [facility] BUN 19 8 - 23 mg/dL 10/21/2017 10:52 AM [facility] [employer] [facility] CREATININE 0.88 0.51 - 0.95 mg/dL 10/21/2017 10:52 AM [facility] [employer] [facility] GLUCOSE 165(H) 74 - 99 mg/dL 10/21/2017 10:52 AM WOMEN'S STUDIES LECTURER [employer] [facility] TOTAL PROTEIN 6.5(L) 6.7 - 8.6 g/dL 10/21/2017 10:52 AM WOMEN'S STUDIES LECTURER [employer] [facility] ALBUMIN 3.5 3.5 - 5.2 g/dL 10/21/2017 10:52 AM [facility] BILIRUBIN TOTAL 0.6 0.2 - 1.1 mg/dL 10/21/2017 10:52 AM [facility] [employer] [facility] - [facility] ALKALINE PHOSPHATASE 203(H) 35 - 104 U/L 10/21/2017 10:52 AM [facility] AST 29 <33 U/L 10/21/2017 10:52 AM [facility] ALT 30 <34 U/L 10/21/2017 10:52 AM [employer] [facility] GFR >60 >=60 mL/min/1.7 3 sq meter 10/21/2017 10:52 AM [facility] [facility] Comment: eGFR has not [...] mL/min/1.7 3 sq meter 10/21/2017 10:52 AM [facility] [employer] [facility] ANION GAP 12 8 - 16 mmol/L 10/21/2017 10:52 AM [facility] [employer] [facility] Blood Venipuncture / Unknown 10/21/2017 6:42 AM [facility] 10/21/2017 8:59 AM [facility] [employer] [facility] - 10/21/2017 10:52 AM [facility] Samples containing indocyanine green cause interferences on Total and/or Direct Bilirubin and must not be measured. Last Velásquez MD CHEMISTRY ORDERABLES Final R esult [facility] [employer] [facility]# [id number] [address] [place] [address] * (ABNORMAL) CBC WITH DIFFERENTIAL (10/21/2017 6:42 AM WOMEN'S STUDIES LECTURER) [facility] WBC 6.0 4.0 - 9.8 K/uL 10/21/2017 10:21 AM [facility] [employer] [facility] RBC 3.67(L) 3.90 - 4.90 M/uL 10/21/2017 10:21 AM [facility] [employer] [facility] HEMOGLOBIN 10.7(L) 11.8 - 14.8 g/dL 10/21/2017 10:21 AM [facility] [employer] [facility] HEMATOCRIT 35.0(L) 35.5 - 44.0 % 10/21/2017 10:21 AM [facility] [employer] [facility] MCV 95.4 82.0 - 99.0 fL 10/21/2017 10:21 AM [facility] [employer] [facility] MCH 29.2 27.2 - 32.6 pg 10/21/2017 10:21 AM [facility] MCHC 30.6(L) 31.5 - 35.5 g/dL 10/21/2017 10:21 AM WOMEN'S STUDIES LECTURER [employer] RDW 15.2(H) 11.5 - 14.5 % 10/21/2017 10:21 AM [facility] RDW-STDEV 52.6(H) 37.1 - 48.7 fL 10/21/2017 10:21 AM [facility] PLATELETS 292 140 - 350 K/uL 10/21/2017 10:21 AM [facility] MPV 10.6 9.3 - 12.4 fL 10/21/2017 10:21 AM [facility] NEUTROPHILS 60 % 10/21/2017 10:21 AM [facility] LYMPHOCYTES 23 % 10/21/2017 10:21 AM [facility] MONOCYTES 12 % 10/21/2017 10:21 AM [facility] EOSINOPHILS 3 % 10/21/2017 10:21 AM [facility] BASOPHILS 1 % 10/21/2017 10:21 AM [facility] IMMATURE GRANULOCYTES 1 % 10/21/2017 10:21 AM [facility] Comment:IG (Immature Granulo cyte) count includes Metamyelocytes, Myelocytes, and Promyelocytes NEUTROPHIL ABSOLUTE 3.58 1.90 - 7.00 K/uL 10/21/2017 10:21 AM [facility] LYMPHOCYTE ABSOLUTE 1.38 0.70 - 4.50 K/uL 10/21/2017 10:21 AM [facility] MONOCYTE ABSOLUTE 0.73 0.10 - 1.30 K/uL 10/21/2017 10:21 AM [facility] EOSINOPHIL ABSOLUTE 0.18 0.00 - 0.70 K/uL 10/21/2017 10:21 AM [facility] BASOPHILS ABSOLUTE 0.03 0.00 - 0.20 K/uL 10/21/2017 10:21 AM [facility] IMMATURE GRANULOCYTES ABSOLUTE 0.06(H) 0.00 - 0.03 K/uL 10/21/2017 10:21 AM WOMEN'S STUDIES LECTURER [facility] LABORATORY [facility] Blood Venipuncture / Unknown 10/21/2017 6:42 AM WOMEN'S STUDIES LECTURER 10/21/2017 8:59 AM WOMEN'S STUDIES LECTURER us Last Velásquez MD HEMATOLOGY ORDERABLES Final Result [facility] CLIA# [id number] [address] [facility] [place] [address] documented in this encounter Visit Diagnoses Diagnosis Encounter for general adult medical examination without abnormal findings Routine general medical examination at a health care facility documented in this encounter Care Teams Dance Teacher Relationship Specialty Start Date End Date Jaime Givens DO [address] [place] [address] PCP - General Internal Medicine 06/14/18 documented as of this encounter
--- OUTSIDE RECORDS SUMMARY | 2025-04-11 20:56 | XMS_ITS | Encounter Summary ---
Author Organization [employer] Address [address] [place] [address] Care Team Providers Care Patient Office Rep Name Role Phone Jaime Givens Primary Care Provider Encounter Details Date Type Department Care Team (Late st Contact Info) Description 11/03/2017 Lab Requisition [facility] [address] [place] [address] [place] [address] Last Velásquez MD [address] [place] [address] Encounter for general adult medical [...] on file Legal Sex Female 3:21 AM ICING MAKER Gender Identity Not on file Sexual Orientation [...] BNP OR PROBNP Routine 11/03/2017 6:36 AM ICING MAKER Encounter for general adult medical examination without abnormal findings BASIC METABOLIC PANEL Routine 11/03/2017 6:36 AM ICING MAKER Encounter for general adult medical examination without abnormal findings documented in this encounter Results * (ABNORMAL) BASIC METABOLIC PANEL (11/03/2017 6:36 AM ICING MAKER) SODIUM 141 136 - 145 mmol/L 11/03/2017 10:39 AM [facility] [facility] POTASSIUM 3.9 3.5 - 5.0 mmol/L 11/03/2017 10:39 AM [facility] [employer] LABORATORY SERVICES [facility] CHLORIDE 102 98 - 107 mmol/L 11/03/2017 10:39 AM [facility] - [facility] CO2 25 22 - 29 mmol/L 11/03/2017 10:39 AM [employer] [facility] - [facility] CALCIUM 9.2 8.6 - 10.2 mg/dL 11/03/2017 10:39 AM [facility] [employer] [facility] - [facility] BUN 19 8 - 23 mg/dL 11/03/2017 10:39 AM [facility] [facility] - [facility] CREATININE 0.92 0.51 - 0.95 mg/dL 11/03/2017 10:39 AM ICING MAKER [employer] LABORATORY [facility] [place] GLUCOSE 134(H) 74 - 99 mg/dL 11/03/2017 10:39 AM ICING [employer] [facility] Medical [facility] GFR >60 >=60 mL/min/1.7 3 sq meter 11/03/2017 10:39 AM ICING MAKER [facility] Medical SERVICES - [facility] Comment: eGFR has not been validated for [...] mL/min/1.7 3 sq meter 11/03/2017 10:39 AM [facility] [employer] [facility] - [facility] ANION GAP 14 8 - 16 mmol/L 11/03/2017 10:39 AM [facility] Blood Venipuncture / Unknown 11/03/2017 6:36 AM ICING MAKER 11/03/2017 9:14 AM ICING MAKER Last Velásquez MD CHEMISTRY ORDERABLES Final R esult [facility]# [id number] [address] [place] [address] * (ABNORMAL) BRAIN NATRIURETIC PEPTIDE, BNP OR PROBNP (11/03/2017 6:36 AM ICING MAKER) PROBNP, N TERMINAL 349(H) <124 pg/mL 11/03/2017 10:39 AM ICING MAKER [facility] [email or web address] [facility] Comment: Reference values for screening purposes based on lock and dam equipment repairer's recommendation: Patients less than 75 years: <125 [...] Blood Venipuncture / Unknown 11/03/2017 6:36 AM ICING MAKER 11/03/2017 9:14 AM ICING MAKER Last Velásquez MD CHEMISTRY ORDERABLES Final R esult Performing Organization Address City/[facility]/ZIP Co de Phone Number [facility]# [id number] [address] [place] [address] documented in this encounter Visit Diagnoses Diagnosis Encounter for general adult medical examination without abnormal findings Routine general medical examination at a health care facility documented in this encounter Care Teams Patient Office Rep Relationship Specialty Start Date End Date Jaime Gievns DO [address] [facility] [address] [place] [address] PCP - General Internal Medicine 06/14/18 documented as of this encounter
--- OUTSIDE RECORDS SUMMARY | 2025-04-11 20:56 | XMS_ITS | Encounter Summary ---
Author Organization [facility] Address [address] [place] [address] Phone Care Team Providers Care Fish Dressing Machine Feeder Name Role Phone Jaime Givens DO Primary Care Provider + [phone] Thad Arredondo MD Unavailable [phone] Michi De La Paz MD PhD Unavailable [phone] Bebeto Murillo MD Unavailable [phone] Daija Smart DO Unavailable [phone] Michelle Sherman MANUFACTURING ENGINEERING MANAGER Unavailable [phone] Amelia Garner NP Unavailable [phone] Kavitha Hurst NP Unavailable [phone] Encounter Details Date Type Department Care Team (Late st Contact Info) Description 06/30/2024 Telephone [facility] Surgery [address] [facility] [place] [address] [place] [address] Yulisa Arce NP [address] [place] [address] Social History Tobacco Use Types Packs/Day Years Used Date Smoking Tobacco: Former Smokeless Tobacco: Never Comments:quit 1986 Alcohol Use Standard Drinks/Week Comments No 0 (1 standard drink = 0.6 oz pur e alcohol) [facility] Utilities Answer Date Recorded In the past [...] often do you attend chur ch or moravian services? 1 to 4 times per year 06/03/2024 Do you belong to any clubs o r organizations such as hinduism groups, unions, fraternal or athletic groups, or [...] any time in the past 12 m [facility], were you homeless or living in a custodial (including now)? No 06/03/2024 Personal Safety Answer Date Recorded Have you ever been in or are you currently in a harmful physical or emotional relationship or is someone making you feel afraid or unsafe? Denies 05/31/2024 Comments No Sex and Gender Information Value Date Recorded Sex Assigned at Not on file Legal Sex Female 1:11 AM CHIEF STEWARD/STEWARDESS Gender Identity Not on file Sexual Orientation Not on file Occupation Industry Job Start Date Job End Date Retired Not on file Not on file Not on file documented as of this encounter Plan of Treatment Not on file documented as of this encounter Visit Diagnoses Not on filedocumented in this encounter Care Teams Fish Dressing Machine Feeder Relationship Specialty Start Date End Date Jaime Givens DO PCP - General 10/13/16 Thad Arredondo MD Consulting Physician Cardiology 05/14/18 Michi De La Paz MD PhD Referring Physician Cardiology 05/14/18 Bebeto Murillo MD Referring Physician Cardiology 09/09/19 Daija Smart DO [address] [place] [address] Sales Broker Obstetrics and Gynecology 09/04/23 Michelle Sherman NP [address] [place] [address] Nurse Practitioner Obstetrics and Gynecology 12/22/23 Amelia Garner NP [address] [place] [address] Nurse Practitioner Obstetrics and Gynecology 06/27/24 Kavitha Hurst NP [address] [place] [address] Nurse Practitioner Obstetrics and Gynecology 11/29/24 documented as of this encounter
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
[2025-04-12] MEDS: oxyCODONE HCL (*CRX) 5 MG TAB IR PO (00:40)
[2025-04-12] MEDS: LIDOCAINE 5% PATCH 1 PATCH TRANSDERM (01:00)
== END 2025-04-12 01:21 | disposition home or self-care (01) ==
PROVIDERS: Emergency Provider Student in an Organized Health Care Education/Training Program; PCP Internal Medicine
DX: R07.89 Other chest pain (principal); M25.521 Pain in right elbow; M79.651 Pain in right thigh; M79.652 Pain in left thigh; I11.0 Hypertensive heart disease with heart failure; I50.9 Heart failure, unspecified; I48.91 Unspecified atrial fibrillation; E11.9 Type 2 diabetes mellitus without complications; Z87.891 Personal history of nicotine dependence; V43.52XA Car driver injured in collision with other type car in traffic accident, initial encounter
CPT/HCPCS: 70450; 71250; 72125; 72128; 72131; 73070; 73552; 74176; 82948; 93005; 99284; A9270

== ENCOUNTER 2025-04-15 06:57 | Outpatient (CLI) | payer MEDICARE, SELFPAY ==
--- OUTSIDE RECORDS SUMMARY | 2025-04-15 07:00 | XMS_ITS | Encounter Summary ---
Author Organization [email or web address] Address [address] [place] [address] Care Team Providers Care Vaccine Specialist Name Role Phone Jaime Givens DO Primary Care Provider Encounter Details Date Type Department Care Team (Late st Contact Info) Description 09/09/2000 Outpatient Historical [facility] MD Yonny MORAES Carolyn, MD [address] [place] [id number] Social History Tobacco Use Types Packs/Day Years Used Date Smoking Tobacco: Never Assessed Comments Unknown Sex and Gender Information Value Date Recorded Sex Assigned at Not on file Legal Sex Female 3:21 AM PROSTHETICS ASSISTANT Gender Identity Not on file Sexual Orientation Not on file documented as of this encounter Plan of Treatment Not on file documented as of this encounter Visit Diagnoses Not on filedocumented in this encounter Care Teams Vaccine Specialist Relationship Specialty Start Date End Date Jaime Givens DO [address] [facility] [address] [place] [address] PCP - General Internal Medicine 06/14/18 documented as of this encounter
--- OUTSIDE RECORDS SUMMARY | 2025-04-15 07:00 | XMS_ITS | Encounter Summary ---
Author Organization [facility] Address [address] [place] [address] Phone Care Team Providers Care Toolsmith Name Role Phone Jaime Givens DO Primary Care Provider + [phone] Thad Arredondo MD Unavailable [phone] Michi De La Paz MD PhD Unavailable [phone] Bebeto Murillo MD Unavailable [phone] Daija Smart DO Unavailable [phone] Michelle Sherman SPINNING LATHE OPERATOR Unavailable [phone] Amelia Garner NP Unavailable [phone] Kavitha Hurst SPINNING LATHE OPERATOR Unavailable [phone] Encounter Details Date Type Department Care Team (Late st Contact Info) Description 04/10/2025 Results Follow-Up [facility] Cardiology [address] [facility] 8th [place] [address] [place] [address] Michi De La Paz MD PhD [address] [facility] [address] [place] [address] ECG 12 lead Social History Tobacco Use Types Packs/Day Years Used Date Smoking Tobacco: Former Smokeless Tobacco: Never Comments:quit 1986 Alcohol Use Standard Drinks/Week Comments No 0 (1 standard drink = 0.6 oz pur e alcohol) [facility] Utilities Answer Date Recorded In the [...] often do you attend chur ch or mormonism services? 1 to 4 times per year 06/03/2024 Do you belong to any clubs o r organizations such as zoroastrianism groups, unions, fraternal or athletic groups, or [...] any time in the past 12 m [facility], were you homeless or living in a long term (including now)? No 06/03/2024 Personal Safety Answer Date Recorded Have you ever been in or are you currently in a harmful physical or emotional relationship or is someone making you feel afraid or unsafe? Denies 05/31/2024 Comments No Sex and Gender Information Value Date Recorded Sex Assigned at Not on file Legal Sex Female 1:11 AM FIRST AID DIRECTOR Gender Identity Not on file Sexual Orientation Not on file Occupation Industry Job Start Date Job End Date Retired Not on file Not on file Not on file documented as of this encounter Plan of Treatment Not on file documented as of this encounter Visit Diagnoses Not on filedocumented in this encounter Care Teams Toolsmith Relationship Specialty Start Date End Date Jaime Givens DO PCP - General 10/13/16 Thad Arredondo MD Consulting Physician Cardiology 05/14/18 Michi De La Paz MD PhD Referring Physician Cardiology 05/14/18 Bebeto Murillo MD Referring Physician Cardiology 09/09/19 Daija Smart DO [address] [place] [address] [place] [facility] 09/04/23 Michelle Sherman NP [address] [place] [address] Nurse Practitioner Obstetrics and Gynecology 12/22/23 Amelia Garner NP [address] [place] [address] Nurse Practitioner Obstetrics and Gynecology 06/27/24 Kavitha Hurst NP [address] [place] [address] Nurse Practitioner Obstetrics and Gynecology 11/29/24 documented as of this encounter
--- OUTSIDE RECORDS SUMMARY | 2025-04-15 07:01 | XMS_ITS | Encounter Summary ---
Author Organization [facility] Address [address] [place] [address] Phone Care Team Providers Care Nutrition Aide Name Role Phone Jaime Givens DO Primary Care Provider + [phone] Thad Arredondo MD Unavailable [phone] Michi De La Paz MD PhD Unavailable [phone] Bebeto Murillo MD Unavailable [phone] Daija Smart DO Unavailable [phone] Michelle Sherman STRUCTURAL IRON WORKER Unavailable [phone] Amelia Garner NP Unavailable [phone] Kavitha Hurst NP Unavailable [phone] Encounter Details Date Type Department Care Team (Late st Contact Info) Description 06/30/2024 Telephone [facility] Surgery [address] [facility] [address] [place] [address] Yulisa Arce NP [address] [place] [address] Social History Tobacco Use Types Packs/Day Years Used Date Smoking Tobacco: Former Smokeless Tobacco: Never Comments:quit 1986 Alcohol Use Standard Drinks/Week Comments No 0 (1 standard drink = 0.6 oz pur e alcohol) [facility] Utilities Answer Date Recorded In the [...] often do you attend chur ch or zoroastrianism services? 1 to 4 times per year 06/03/2024 Do you belong to any clubs o r organizations such as anabaptist groups, unions, fraternal or athletic groups, or [...] any time in the past 12 m [facility], were you homeless or living in a [facility] (including now)? No 06/03/2024 Personal Safety Answer Date Recorded Have you ever been in or are you currently in a harmful physical or emotional relationship or is someone making you feel afraid or unsafe? Denies 05/31/2024 Comments No Sex and Gender Information Value Date Recorded Sex Assigned at Not on file Legal Sex Female 1:11 AM NURSING EXECUTIVE Gender Identity Not on file Sexual Orientation Not on file Occupation Industry Job Start Date Job End Date Retired Not on file Not on file Not on file documented as of this encounter Plan of Treatment Not on file documented as of this encounter Visit Diagnoses Not on filedocumented in this encounter Care Teams Nutrition Aide Relationship Specialty Start Date End Date Jaime Givens DO PCP - General 10/13/16 Thad Arredondo MD Consulting Physician Cardiology 05/14/18 Michi De La Paz MD PhD Referring Physician Cardiology 05/14/18 Bebeto Murillo MD Referring Physician Cardiology 09/09/19 Daija Smart DO [address] [place] [address] [employer] Obstetrics [facility] Gynecology 09/04/23 Michelle Sherman NP [address] [place] [address] Nurse Practitioner Obstetrics and Gynecology 12/22/23 Amelia Garner NP [address] [place] [address] Nurse Practitioner Obstetrics and Gynecology 06/27/24 Kavitha Hurst NP [address] [place] [address] Nurse Practitioner Obstetrics and Gynecology 11/29/24 documented as of this encounter
--- OUTSIDE RECORDS SUMMARY | 2025-04-15 07:01 | XMS_ITS | Encounter Summary ---
Author Organization [facility] Address [address] [place] [address] Phone Care Team Providers Care Oyster Grower Name Role Phone Jaime Givens DO Primary Care Provider + [phone] Thad Arredondo MD Unavailable [phone] Michi De La Paz MD PhD Unavailable [phone] Bebeto Murillo MD Unavailable [phone] Daija Smart DO Unavailable [phone] Michelle Sherman FURNACE FIRER Unavailable [phone] Gin Syed MD Unavailable [phone] Kavya aHll RN Unavailable [phone] Amelia Garner NP Unavailable [phone] Kavitha Hurst NP Unavailable [phone] Encounter Details Date Type Department Care Team [...] on file Legal Sex Female 1:11 AM SAMPLE MAKER ORIGINAL Gender Identity Not on file Sexual Orientation [...] on filedocumented in this encounter Care Teams Oyster Grower Relationship Specialty Start Date End Date Jaime Givens DO PCP - General 10/13/16 Thad Arredondo MD Consulting Physician Cardiology 05/14/18 Michi De La Paz MD PhD Referring Physician Cardiology 05/14/18 Bebeto Murillo MD Referring Physician Cardiology 09/09/19 Daija Smart DO [address] [place] [id number] Meteorologist Liaison Obstetrics and Gynecology 09/04/23 Michelle Sherman NP [address] [place] [id number] Nurse Practitioner Obstetrics and Gynecology 12/22/23 Gin Syed MD [address] [facility] [address] [place], [place] [id number] Resident Internal Medicine 05/29/24 05/30/24 Kavya Hall, RN [address] [facility] [address] [place], [place] [id number] SHOP Outpatient Spot Cleaner 06/03/24 06/28/24 Amelia Garner NP [address] [place] [address] Nurse Practitioner Obstetrics and Gynecology 06/27/24 Kavitha Hurst NP [address] [place] [address] Nurse Practitioner Obstetrics and Gynecology 11/29/24 documented as of this encounter
--- OUTSIDE RECORDS SUMMARY | 2025-04-15 07:01 | XMS_ITS | Encounter Summary ---
Author Organization [facility] Address [address] [place] [address] Care Team Providers Care Scrap Picker Name Role Phone Jaime Givens Primary Care Provider Encounter Details Date Type Department Care Team (Late st Contact Info) Description 11/03/2017 Lab Requisition [facility] [address] [place] [address] [place] [address] Last Velásquez MD [address] [place] [address] Encounter for general adult medical [...] on file Legal Sex Female 3:21 AM [employer] SCHO[employer] COORDINATOR Gender Identity Not on file Sexual [...] BNP OR PROBNP Routine 11/03/2017 6:36 AM [employer] SCHO[employer] COORDINATOR Encounter for general adult medical examination without abnormal findings BASIC METABOLIC PANEL Routine 11/03/2017 6:36 AM [employer]MER SCHOOL COORDINATOR Encounter for general adult medical examination without abnormal findings documented in this encounter Results * (ABNORMAL) BASIC METABOLIC PANEL (11/03/2017 6:36 AM [employer] SCHOOL COORDINATOR) SODIUM 141 136 - 145 mmol/L 11/03/2017 10:39 AM [facility] POTASSIUM 3.9 3.5 - 5.0 mmol/L 11/03/2017 10:39 AM [facility] CHLORIDE 102 98 - 107 mmol/L 11/03/2017 10:39 AM [facility] CO2 25 22 - 29 mmol/L 11/03/2017 10:39 AM [employer]MER SCHOOL COORDINATOR [facility] CALCIUM 9.2 8.6 - 10.2 mg/dL 11/03/2017 10:39 AM [facility] BUN 19 8 - 23 mg/dL 11/03/2017 10:39 AM [facility] - [facility] CREATININE 0.92 0.51 - 0.95 mg/dL 11/03/2017 10:39 AM [employer]MER SCHOOL COORDINATOR [facility] LABORATORY [facility] - [facility] GLUCOSE 134(H) 74 - 99 mg/dL 11/03/2017 10:39 AM SUMMER SCHOOL COORDINATOR [facility] GFR >60 >=60 mL/min/1.7 3 sq meter 11/03/2017 10:39 AM SUMMER SCHOOL COORDINATOR [facility] - [facility] Comment: eGFR has not [...] mL/min/1.7 3 sq meter 11/03/2017 10:39 AM [facility] - [facility] ANION GAP 14 8 - 16 mmol/L 11/03/2017 10:39 AM [employer] [facility] Blood Venipuncture / Unknown 11/03/2017 6:36 AM [employer]MER SCHOOL COORDINATOR 11/03/2017 9:14 AM [employer]MER SCHOOL COORDINATOR Last Velásquez MD CHEMISTRY ORDERABLES Final R esult [facility]# [id number] [address] [place] [address] * (ABNORMAL) BRAIN NATRIURETIC PEPTIDE, BNP OR PROBNP (11/03/2017 6:36 AM [employer] SCHO[employer] COORDINATOR) PROBNP, N TERMINAL 349(H) <124 pg/mL 11/03/2017 10:39 AM SUMMER SCHOOL COORDINATOR [facility] Comment: Reference values for screening purposes based on atmospheric drier tender's recommendation: Patients less than 75 years: <125 [...] Blood Venipuncture / Unknown 11/03/2017 6:36 AM [employer]MER SCHOOL COORDINATOR 11/03/2017 9:14 AM [employer]MER SCHOOL COORDINATOR Last Velásquez MD CHEMISTRY ORDERABLES Final R esult Performing Organization Address City/[facility]/ZIP Co de Phone Number [facility]# [id number] [address] [place] [address] documented in this encounter Visit Diagnoses Diagnosis Encounter for general adult medical examination without abnormal findings Routine general medical examination at a health care facility documented in this encounter Care Teams Scrap Picker Relationship Specialty Start Date End Date Jaime Givens DO [address] [facility] [address] [place] [address] PCP - General Internal Medicine 06/14/18 documented as of this encounter
--- OUTSIDE RECORDS SUMMARY | 2025-04-15 07:01 | XMS_ITS | Clinical Summary ---
Author Organization [facility] Address [address] [place] [address] Care Team Providers Care Digital Technician Name Role Phone Jaime Givens DO Primary Care Provider [phone] Thad Arredondo MD Unavailable Michi De La Paz MD PhD Unavailable [phone] Bebeto Murillo MD Unavailable [phone] Daija Smart DO Unavailable [phone] Michelle Sherman [employer] Unavailable [phone] Amelia Garner NP Unavailable [phone] Kavitha Hurst NP Unavailable [phone] Allergies Active Allergy Reactions Criticality Noted Date [...] in CEIOL. Her retina provider Dr. Colunga ([facility]) plans to perform PRP OS prior [...] eye. Assessment & Plan (07/23/2020 3:53 PM MARINE ARCHITECT): Becoming visually significant OS. Hepatic steatosis 01/26/2020 [...] Uses CPAP at home - cont here [facility] Body mass index 40+ - severely [...] well so needs to be transferred to [facility] for cardiology. 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 I have asked her to return to see us roughly 4-6 weeks for re-evaluation. Encounters Date Type Department Care Team Description 04/10/2025 3:30 PM CDT Office Visit [facility] Cardiology [address] [place] [address] 8th [place] [address] [place] [address] Michi De La Paz MD PhD Atrial fibrillation, unspecified type (HCC) (Primary Dx); Essential hypertension; Chronic diastolic heart failure (HCC); Hypertension, essential 04/10/2025 Results Follow-Up [facility] Cardiology [facility] 8th [place] [address] [place] [address] Michi De La Paz MD PhD ECG 12 lead 03/06/2025 1:45 PM CDT Office Visit [facility] Ophthalmology [address] [facility] 6th [place] [address] Mariza Engel MD Age-related nuclear cataract of both eyes (Primary Dx); 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) 01/24/2025 Results Follow-Up [facility] Obstetrics and Gynecology [address] [facility] 13th [place] [address] [place] [address] Jael Mullen MD Surgical pathology, Pap and High Risk HPV and Genotyping (Cytology Component) 01/13/2025 11:09 AM CDT - 01/13/2025 11:59 PM CDT Hospital Encounter [facility] [address] [place] [address] Complex atypical endometrial hyperplasia Discharge Disposition: Discharge to home or self care 01/13/2025 8:45 AM CDT - 01/13/2025 11:59 PM CDT Hospital Encounter [facility] PATHOLOGY [address] [facility] 3rd [place] [address] Complex atypical endometrial hyperplasia Discharge Disposition: Discharge to home or self care from Last 3 Months Surgical History Surgery [...] drink = 0.6 oz pur e alcohol) [facility] Utilities Answer Date Recorded In [...] often do you attend chur ch or faith services? 1 to 4 times per year 06/03/2024 Do you belong to any clubs o r organizations such as tenriism groups, unions, fraternal or athletic groups, or [...] any time in the past [address] [facility], were you homeless or living in a jail (including now)? No 06/03/2024 Personal Safety Answer Date Recorded Have you ever been in or are you currently in a harmful physical or emotional relationship or is someone making you feel afraid or unsafe? Denies 05/31/2024 Comments No Sex and Gender Information Value Date Recorded Sex Assigned at Not on file Legal Sex Female 1:11 AM MARINE ARCHITECT Gender Identity Not on file Sexual Orientation [...] 05/31/2024, 06/13/2019 Colon Cancer Screening-DNA Stool Discontinued 05/31/20 24, 06/13/2019 Colon Cancer Screening-FIT Discontinued 05/31/2024, Colon [...] 8:45 AM CDT Complex atypical endometrial hyperplasia BASIC METABOLIC [...] CREATININE RATIO, URINE Routine 10/11/2019 11:56 AM MARINE ARCHITECT from Last 3 Months or Most Recently Relevant to Health Maintenance Results * ECG 12 lead (04/10/2025 3:53 PM CDT) Michi De La Paz MD PhD ECG ORDERABLES Edited Result - Final * High Risk HPV DNA Detection with Genotyping (Molecular component) (01/13/2025 8:45 AM CDT) Pathologist [facility] HPV HR 16 Not Detected Not Detected [facility] HPV HR 18 Not Detected Not Detected [facility] HPV HR Non 16/18 Not Detected Not Detected [facility] Comment: Interpretive Data Nucleic acid amplification for [...] this test have been verified by the [facility] Molecular Infectious Disease laboratory. Correlate with separately reported cytology results, as applicable. Interpretive data last revised 23 Endocervical 01/13/2025 8:45 AM CDT 01/18/2025 10:12 AM CDT Narrative [facility] - 01/19/2025 12:44 AM CDT Clinical history and diagnosis->h/o CAH Number of vials->1 Testing type->Screening Last menstrual period (date if known)->n/a Menstrual status->Postmenopausal Jael Mullen MD LAB BODY FLUIDS AND STOOL S ORDERABLES Final Result [facility] Department [place] [address] [facility] * Pap and High Risk HPV and Genotyping (Cytology Component) (01/13/2025 8:45 AM CDT) Thin prep (Pap test) 01/13/2025 8:45 AM CDT 01/13/2025 11:09 AM CDT Narrative PATHOLOGY [facility] - 01/24/2025 4:13 PM CDT EPIC results best viewed via link to PDF [facility] Lita Villalpando Laboratory of Surgical Pathology [place], [place] [id number] Note to Patients: This report may contain [...] Gender: F : 1955 (Age: 69) Address: [address] [place] [id number] Hospital #: [id number] Service: HOSPITAL NURSING ASSISTANT Location: Patient Type: [facility] SPECIMEN Taken: 01/13/2025 Received: 01/13/2025 Accessioned: 01/18/2025 [...] this test have been verified by the [facility] Molecular Infectious Disease laboratory. Correlate with reported cytology results, as applicable. Interpretive data last revised [address] [facility]/01/24/2025 16:13 KETTY Del Castillo(ASC) Report Electronically Reviewed and Signed Out By KETTY Del Castillo(ASC) 01/24/2025 16:13:20 Cervicovaginal Cytology (Pap Test) Disclaimer: The Pap test is a screening test used to detect cervical cancer and its precursors; it is not a diagnostic procedure. False negative and false positive results do occur. Pap test results should be interpreted in the context of pertinent clinical information and biopsy results as indicated. [facility] Clinical Laboratory Improvement Amendments (CLIA) mandate that cytologic and histologic results be correlated for laboratory quality control inspector heading & improvement standards. FOR ALL HIGH-GRADE CASES [...] determined by the Surgical Pathology Department at [facility] as part of an ongoing assistant manager quality management program and in compliance with federally mandated [...] determined by the Surgical Pathology Department of [facility]. It has not been cleared or approved by the U. S. Food and Drug Administration. us Jael Mullen MD LAB CYTOLOGY ORDERABLES F inal Result PATHOLOGY [facility] 3rd Floor [place], [place] [phone] * Surgical pathology (01/13/2025 8:45 AM CDT) Tissue (Endometrial biopsy) 01/13/2025 8:45 AM CDT 01/13/2025 4:36 PM CDT Narrative PATHOLOGY [facility] - 01/16/2025 4:29 PM CDT EPIC results best viewed via link to PDF [facility] Lita Villalpando Laboratory [place] [address] Note to Patients: This report may contain [...] Gender: F : 1955 (Age: 69) Address: [address] [place], [place] [phone] Hospital #: [id number] Taken:01/13/2025 Received:01/13/2025 Reported: 01/16/2025 Patient Type: [facility] SPECIMEN Service: Laboratory Location: Physician(s): Jael Mullen M.D. Diagnosis: Uterus, endometrium, biopsy - Scant fragments of asynchronous endometrium consistent with exogenous progestin therapy - Scant strips of unremarkable endocervical epithelium - No evidence of endometrial hyperplasia or malignancy [facility]/01/16/2025 10:38 By this signature, I attest that [...] Surgical Pathology and Flow Cytometry Departments at [facility] as part of an ongoing assistant manager quality management program and in compliance with federally mandated [...] Surgical Pathology and Flow Cytometry Departments of [facility]. It has not been cleared or approved by the U. S. Food and Drug Administration. IMAGES AND SCANNED DOCUMENTS, IF INCLUDED, ONLY VIEWABLE IN PDF VERSION OF REPORT us Jael Mullen MD LAB PATHOLOGY ORDERABLES Final Result PATHOLOGY [facility] 3rd Floor [place], [place] [phone] * (ABNORMAL) Basic metabolic panel (12/19/2024 4:20 PM CDT) Glucose 85 64 - 99 mg/dL [facility] Comment: NONFASTING GLUCOSE RANGE = 64-199 mg/dL FASTING GLUCOSE 64 - 99 = NORMAL FASTING GLUCOSE 100 - 125 = IMPAIRED FASTING GLUCOSE FASTING GLUCOSE >=126 = PROVISIONAL DIAGNOSIS OF DIABETES Potassium 4.6 3.3 - 5.1 mmol/L [facility] Creatinine 1.06 0.60 - 1.10 mg/dL [facility] [...] Female Attending MD: Darleen May M.D. Room: [facility] ENDOSCOPY Note Status: Finalized Procedure: [...] The scope was passed under direct vision.The [id number] endoscope was introduced through the anus [...] clip was successfully placed (MR conditional). Clip casting tester: Settle. There was no bleeding at the end of the procedure. The exam was otherwise without abnormality on direct and retroflexion views. Impression: - Hemorrhoids found on perianal exam. - Three 4 to 10 mm polyps in the transverse colonand in the ascending colon, removed with a cold snare. Resected and retrieved. Clip (MR conditional) was placed. Clip casting tester: Settle. - The examination was otherwise normal on [...] 0 Note Initiated On: 05/31/2024 5:14 PM Darleen May MD ENDOSCOPY PROCEDURES Final Res [...] and children were not included. (Diabetes Care 31:[id number], 2008). The eAG is not equivalent to a fasting glucose. Blood 05/26/2024 1:24 PM CDT 05/26/2024 1:25 PM CDT Anabelle Mckeon MD LAB BLOOD ORDERABLES Final R esult [facility] [address] [facility]. [place] [address] * Screening Mammogram Bilateral W Jose (04/03/2023 2:45 PM CDT) Anatomical Region Laterality Modality Breast Bilateral Mammography Narrative 04/05/2023 9:52 AM CDT Mammogram Technique: Bilateral Digital Breast Tomosynthesis, Bilateral C-view 2D Screening mammogram. Views obtained: bilateral craniocaudal and bilateral mediolateral oblique. Computer Aided Detection was performed. Mammogram Findings: The present examination has been compared to prior imaging studies performed at [facility] on 12/31/2021, at [facility] on 10/09/2020, and at [place], [place] on 06/21/2018. There are scattered areas [...] compared to prior imaging studies performed at [facility] on 12/31/2021, at [facility] on 10/09/2020, and at [place], [place] on 06/21/2018. There are scattered areas of fibroglandular density. There is no suspicious abnormality in either breast. Impression: There is no mammographic evidence of malignancy. Annual screening mammography is recommended. OVERALL FINAL ASSESSMENT: BI-RADS CATEGORY 1: Negative. us Faiza Alberto NP IMG MAMMO PROCEDURES Fin al Result * (ABNORMAL) Lipid panel (01/15/2020 11:33 PM CDT) Cholesterol 129 30 - 199 mg/dL [facility] Comment: Interpretive Data Ages < or = 19 years Acceptable: <170 mg/dL Borderline high: 170-199 mg/dL High: >or= 200 mg/dL Ages > or = 20 years Desirable: <200 mg/dL Borderline high: 200-239 mg/dL High: >or= 240 mg/dL Literature References: 1. Expert Panel on Integrated Guidelines for Cardiovascular Health and Risk Reduction in Children and Adolescents. Pediatrics 2011;128:S213 2. NCEP Expert Panel. Circulation 2003;110:227 Current Interpretive Data was last revised on 2018. Triglycerides 108 <=149 mg/dL [facility] Comment: Interpretive Data Ages < or = [...] Pediatrics 2011;128:S213 2. NCEP Expert Panel. Circulation 2003;110:227 Current Interpretive Data was last revised on 2018. HDL 29(L) >=40 mg/dL [facility] Comment: Interpretive Data Ages < or = 19 years Acceptable: >45 mg/dL Borderline low: 40-45 mg/dL Low: <40 mg/dL Ages > or = 20 years Desirable: >or= 60 mg/dL Low: <40 mg/dL Literature References: 1. Expert Panel on Integrated Guidelines for Cardiovascular Health and Risk Reduction in Children and Adolescents. Pediatrics 2011;128:S213 2. NCEP Expert Panel. Circulation 2003;110:227 Current Interpretive Data was last revised on 2018. LDL, calculated 78 <=129 mg/dL [facility] Comment: Interpretive Data Ages < or = [...] revised on 2018. Non-HDL Cholesterol 100 mg/dL [facility] Comment: Interpretive Data Ages < or [...] last revised on 2018. Chol/HDL ratio 4 [facility] Blood specimen (specimen) 01/15/2020 11:33 PM CDT 01/15/2020 11:47 PM CDT Carroll Osei MD LAB BLOOD ORDERABLES nal Result [facility] Department [place] [address] * (ABNORMAL) Albumin Creatinine Ratio, Urine (10/11/2019 11:56 AM MARINE ARCHITECT) Creatinine, ur 150 20 - 275 mg/dL [...] a diagnostic category. 10/11/2019 11:5 6 AM MARINE ARCHITECT 10/11/2019 12:02 PM MARINE ARCHITECT Narrative [facility] - 10/12/2019 6:06 PM MARINE ARCHITECT FASTING:YES FASTING: YES Resulting Agency Comment Performing Organization Information: Site ID: [id number] Name: [facility] Address: [address] [address] Director: Al Sosa D.O., MPH us Gin Arenas [employer] LAB URINE ORDERABLES Final Res ult [facility] Martinez from Last 3 Months or Most Recently Relevant to Health Maintenance Insurance [place] [facility] MEDIC[facility] [place] [employer] [place] [employer] MEDICARE [facility] MEDICARE [facility] MEDICARE [facility] MEDICARE AARP Advance Directives For more information, please contact: [phone] Documents on File Type Date Recorded Patient E Commerce Strategist Expl anation ADVANCE DIRECTIVE 10/23/2017 10:45 PM [...] 9:11 AM 01/19/2020 8:03 PM Care Teams Digital Technician Relationship Specialty Start Date End Date Jaime Givens DO PCP - General 10/13/16 Thad Arredondo MD Consulting Physician Cardiology 05/14/18 Michi De La Paz MD PhD Referring Physician Cardiology 05/14/18 Bebeto Murillo MD Referring Physician Cardiology 09/09/19 Daija Smart DO [address] [place] [address] Kaiako Kohanga Reo Obstetrics and Gynecology 09/04/23 Michelle Sherman NP [address] [place] [address] Nurse Practitioner Obstetrics and Gynecology 12/22/23 Amelia Garner NP [address] [facility] [place] [address] Nurse Practitioner Obstetrics and Gynecology 06/27/24 Kavitha Hurst NP [address] [facility] [place] [address] Nurse Practitioner Obstetrics and Gynecology 11/29/24
--- OUTSIDE RECORDS SUMMARY | 2025-04-15 07:01 | XMS_ITS | Encounter Summary ---
Author Organization [facility] Address [address] [place] [address] Care Team Providers Care Clinical Documentation Manager Name Role Phone Jaime Givens DO Primary Care Provider Encounter Details Date Type Department Care Team (Late st Contact Info) Description 10/21/2017 Lab Requisition [facility] [employer] 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 Gender Identity Not on file Sexual Orientation Not on file Occupation Industry Job Start Date Job End Date Not on file Not on file Not on file Not on file documented as of this encounter Plan of Treatment Not on file documented as of this encounter Procedures Procedure Name Priority Date/Time Associated Diagnosis Comments CBC WITH DIFFERENTIAL Routine 10/21/2017 6:42 AM SENIOR MAINFRAME PROGRAMMER ANALYST Encounter for general adult medical examination without abnormal findings COMPREHENSIVE METABOLIC PANEL Routine 10/21/2017 6:42 AM SENIOR MAINFRAME PROGRAMMER ANALYST Encounter for general adult medical examination without abnormal findings documented in this encounter Results * (ABNORMAL) COMPREHENSIVE METABOLIC PANEL (10/21/2017 6:42 AM SENIOR MAINFRAME PROGRAMMER ANALYST) Pathologist [facility] SODIUM 138 136 - 145 mmol/L 10/21/2017 10:52 AM [facility] [employer] [facility] POTASSIUM 3.9 3.5 - 5.0 mmol/L 10/21/2017 10:52 AM [facility] [employer] [facility] CHLORIDE 98 98 - 107 mmol/L 10/21/2017 10:52 AM [facility] [employer] [facility] CO2 28 22 - 29 mmol/L 10/21/2017 10:52 AM [facility] [employer] [facility] CALCIUM 9.0 8.6 - 10.2 mg/dL 10/21/2017 10:52 AM [facility] [employer] [facility] BUN 19 8 - 23 mg/dL 10/21/2017 10:52 AM [facility] [employer] [facility] CREATININE 0.88 0.51 - 0.95 mg/dL 10/21/2017 10:52 AM [facility] [employer] [facility] GLUCOSE 165(H) 74 - 99 mg/dL 10/21/2017 10:52 AM SENIOR MAINFRAME PROGRAMMER ANALYST [employer] [facility] TOTAL PROTEIN 6.5(L) 6.7 - 8.6 g/dL 10/21/2017 10:52 AM SENIOR MAINFRAME PROGRAMMER ANALYST [employer] [facility] ALBUMIN 3.5 3.5 - 5.2 g/dL 10/21/2017 10:52 AM [employer] [facility] BILIRUBIN TOTAL 0.6 0.2 - 1.1 mg/dL 10/21/2017 10:52 AM [facility] [employer] [facility] ALKALINE PHOSPHATASE 203(H) 35 - 104 U/L 10/21/2017 10:52 AM [employer] [facility] AST 29 <33 U/L 10/21/2017 10:52 AM [employer] [facility] ALT 30 <34 U/L 10/21/2017 10:52 AM [employer] [facility] GFR >60 >=60 mL/min/1.7 3 sq meter 10/21/2017 10:52 AM [employer] [facility] Comment: eGFR has not [...] mL/min/1.7 3 sq meter 10/21/2017 10:52 AM [facility] [employer] [facility] ANION GAP 12 8 - 16 mmol/L 10/21/2017 10:52 AM [facility] [employer] [facility] Blood Venipuncture / Unknown 10/21/2017 6:42 AM [facility] 10/21/2017 8:59 AM [facility] [employer] [facility] - 10/21/2017 10:52 AM [facility] Samples containing indocyanine green cause interferences on Total and/or Direct Bilirubin and must not be measured. Last Velásquez MD CHEMISTRY ORDERABLES Final R esult [facility] [employer] [facility]# [id number] [address] [place] [address] * (ABNORMAL) CBC WITH DIFFERENTIAL (10/21/2017 6:42 AM SENIOR MAINFRAME PROGRAMMER ANALYST) [facility] WBC 6.0 4.0 - 9.8 K/uL 10/21/2017 10:21 AM [facility] [employer] [facility] RBC 3.67(L) 3.90 - 4.90 M/uL 10/21/2017 10:21 AM [facility] [employer] [facility] HEMOGLOBIN 10.7(L) 11.8 - 14.8 g/dL 10/21/2017 10:21 AM [facility] [employer] [facility] HEMATOCRIT 35.0(L) 35.5 - 44.0 % 10/21/2017 10:21 AM [facility] [employer] [facility] MCV 95.4 82.0 - 99.0 fL 10/21/2017 10:21 AM [facility] [employer] [facility] MCH 29.2 27.2 - 32.6 pg 10/21/2017 10:21 AM [employer] [facility] MCHC 30.6(L) 31.5 - 35.5 g/dL 10/21/2017 10:21 AM SENIOR MAINFRAME PROGRAMMER ANALYST [employer] [facility] RDW 15.2(H) 11.5 - 14.5 % 10/21/2017 10:21 AM [employer] [facility] RDW-STDEV 52.6(H) 37.1 - 48.7 fL 10/21/2017 10:21 AM [employer] [facility] PLATELETS 292 140 - 350 K/uL 10/21/2017 10:21 AM [employer] [facility] MPV 10.6 9.3 - 12.4 fL 10/21/2017 10:21 AM [employer] [facility] NEUTROPHILS 60 % 10/21/2017 10:21 AM [employer] [facility] LYMPHOCYTES 23 % 10/21/2017 10:21 AM [employer] [facility] MONOCYTES 12 % 10/21/2017 10:21 AM [employer] [facility] EOSINOPHILS 3 % 10/21/2017 10:21 AM [employer] [facility] BASOPHILS 1 % 10/21/2017 10:21 AM [employer] [facility] IMMATURE GRANULOCYTES 1 % 10/21/2017 10:21 AM [employer] [facility] Comment:IG (Immature Granulo cyte) count includes Metamyelocytes, Myelocytes, and Promyelocytes NEUTROPHIL ABSOLUTE 3.58 1.90 - 7.00 K/uL 10/21/2017 10:21 AM [employer] [facility] LYMPHOCYTE ABSOLUTE 1.38 0.70 - 4.50 K/uL 10/21/2017 10:21 AM [employer] [facility] MONOCYTE ABSOLUTE 0.73 0.10 - 1.30 K/uL 10/21/2017 10:21 AM [employer] [facility] EOSINOPHIL ABSOLUTE 0.18 0.00 - 0.70 K/uL 10/21/2017 10:21 AM [employer] [facility] BASOPHILS ABSOLUTE 0.03 0.00 - 0.20 K/uL 10/21/2017 10:21 AM [employer] [facility] IMMATURE GRANULOCYTES ABSOLUTE 0.06(H) 0.00 - 0.03 K/uL 10/21/2017 10:21 AM SENIOR MAINFRAME PROGRAMMER ANALYST [facility] LABORATORY [facility] Blood Venipuncture / Unknown 10/21/2017 6:42 AM SENIOR MAINFRAME PROGRAMMER ANALYST 10/21/2017 8:59 AM SENIOR MAINFRAME PROGRAMMER ANALYST us Last Velásquez MD HEMATOLOGY ORDERABLES Final Result [facility] CLIA# [id number] [address] [facility] [place] [address] documented in this encounter Visit Diagnoses Diagnosis Encounter for general adult medical examination without abnormal findings Routine general medical examination at a health care facility documented in this encounter Care Teams Clinical Documentation Manager Relationship Specialty Start Date End Date Jaime Givens DO [address] [facility] [address] [place] [address] PCP - General Internal Medicine 06/14/18 documented as of this encounter
--- OUTSIDE RECORDS SUMMARY | 2025-04-15 07:01 | XMS_ITS | Clinical Summary ---
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 Gender Identity Not on file Sexual Orientation Not on file Occupation Industry Job Start Date Job End Date Not on file Not on file Not on file Not on file Last Filed Vital Signs Vital Sign Reading Time Taken Comments Blood Pressure 128/67 06/21/2018 11:27 AM CDT Pulse 67 07/04/2015 12:44 PM OCCUPATIONAL REHABILITATION AIDE Temperature - - Respiratory Rate 20 06/24/2012 [...] Most Recently Relevant to Health Maintenance Insurance [facility] BLUE PREFERRED Care Teams Water And Sewer Systems Supervisor Relationship Specialty Start Date End Date Jaime Givens DO [address] [address] PCP - General Internal Medicine 06/14/18
--- OUTSIDE RECORDS SUMMARY | 2025-04-15 07:01 | XMS_ITS | Patient Health Record ---
Author Organization [employer] [facility] Address [address] [facility]. [address] [place] [address] Care Team Providers Care Sql Manager Name Role Phone Jaime Givens DO [...] Problem Family history of polyp of colon (412600640) Family history of colonic polyps (Z83.71) Active confirmed She has a family history of colon polyps in her mother. Her last colonoscopy in July 2019 was normal and she was advised to follow-up in 5 years. Problem 18661899 Diarrhea (R19.7) Active confirmed She has been [...] disease, pancreatic insufficiency, IBS, or others. Problem 836546602 Small intestinal bacterial overgrowth (K63.89) Active confirmed Problem 928703184 Bloating (R14.0) Active confirmed Problem Vomiting (R11.10) Active confirmed She is having vomiting when these episodes occur, but otherwise denies having any upper GI symptoms. Problem 42178826 Fatty stool (K90.9) Active confirmed Recently, she has noticed that her stools appear to be more fatty and have been floating on top of the water. They are also vaughn in color. We'll have her submit stool tests for fecal fat and pancreatic elastase. Plan Of Treatment Pending Test Test Name Order Date PANCREATIC [id number] 07/23/2021 FECAL FAT, QUALITATIVE 07/23/2021 LACTOFERRIN, QN, STOOL 07/23/2021 Initiate SIBO 07/23/2021 Insurance Providers Payer Name Payer Address Payer Phone Subscriber Number Group Number Insured Name Patient Relationship to Insured Coverage Start Date Coverage End Date Medicare E2 [address] [address] [place] [address] [id number] Amaris Miley Self - patient is the insured AARP Medicare Advantage Choice PPO [address] [address] [place] [address] [phone] [id number] Miley Glez Self - patient is the insured Medical (General) History Medical History History ICD Code Diverticulosis Diabetes Hypertension Sleep Apnea/CPAP Atrial Fibrillation Surgical History Surgery Date(Month/Year) Colonoscopy (Dr. 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
--- OUTSIDE RECORDS SUMMARY | 2025-04-15 07:01 | XMS_ITS ---
Author Name Auto Generated, Auto Generated Organization [facility] ices Address [address] [place] [address] Phone [phone] Care Team Providers Care Intelligence Chief Name Role Phone Last Velásquez Unavailable Functional [...] oxyCODONE 5 mg tablet 5mg TABLET Oral LA N Every 4 Hours Pain ThuOct 19 [...]
--- OUTSIDE RECORDS SUMMARY | 2025-04-15 07:01 | XMS_ITS | Encounter Summary ---
Author Organization [facility] Address [address] [place] [address] Care Team Providers Care Beam Warper Name Role Phone Jaime Givens DO Primary Care Provider Encounter Details Date Type Department Care Team (Late st Contact Info) Description 11/06/2017 Lab Requisition [facility] Laboratory Services [address] [facility] [address] [facility] [place] [address] Last Velásquez MD [address] [place] [address] Essential (primary) hypertension Social History Tobacco Use Types Packs/Day Years Used Date Smoking Tobacco: Former Cigarettes Q uit: 08/31/1986 Smokeless Tobacco: Former Alcohol Use Standard Drinks/Week Comments No 0 (1 standard drink = 0.6 oz pur e alcohol) Comments No Sex and Gender Information Value Date Recorded Sex Assigned at Not on file Legal Sex Female 3:21 AM PSYCHOLOGIST CLINICAL Gender Identity Not on file Sexual Orientation Not on file Occupation Industry Job Start Date Job End Date Not on file Not on file Not on file Not on file documented as of this encounter Plan of Treatment Not on file documented as of this encounter Visit Diagnoses Diagnosis Essential (primary) hypertension Unspecified essential hypertension documented in this encounter Care Teams Beam Warper Relationship Specialty Start Date End Date Jaime Givens DO [address] [facility] [address] [place] [id number] PCP - General Internal Medicine 06/14/18 documented as of this encounter
--- OUTSIDE RECORDS SUMMARY | 2025-04-15 07:01 | XMS_ITS | Encounter Summary ---
Author Organization [facility] Healthcare Address [address] [place] [address] Care Team Providers Care Lead Printer Name Role Phone Jaime Givens DO Primary Care Provider + [phone] Thad Arredondo MD Unavailable [phone] Michi De La Paz MD PhD Unavailable [phone] Bebeto Murillo MD Unavailable [phone] Daija Smart DO Unavailable [phone] Michelle Sherman HOME AGENT Unavailable [phone] Gin Syed MD Unavailable [phone] Kavya Hall RN Unavailable [phone] Amelia Garner NP Unavailable [phone] Kavitha Hurst NP Unavailable [phone] Encounter Details Date Type Department Care Team (Late st Contact Info) Description 10/08/[address] [place] [address] Susan Leach, RT Social History Tobacco Use Types Packs/Day Years Used Date Smoking Tobacco: Former Smokeless Tobacco: Never Comments:quit 1986 Alcohol Use Standard Drinks/Week Comments No 0 (1 standard drink = 0.6 oz pur e alcohol) Comments No Sex and Gender Information Value Date Recorded Sex Assigned at Not on file Legal Sex Female 1:11 AM COMMUNITY ORGANIZATION WORKER Gender Identity Not on file Sexual Orientation Not on file Occupation Industry Job Start Date Job End Date Retired Not on file Not on file Not on file documented as of this encounter Plan of Treatment Not on file documented as of this encounter Visit Diagnoses Not on filedocumented in this encounter Care Teams Lead Printer Relationship Specialty Start Date End Date Jaime Givens DO PCP - General 10/13/16 Thad Arredondo MD Consulting Physician Cardiology 05/14/18 Michi De La Paz MD PhD Referring Physician Cardiology 05/14/18 Bebeto Murillo MD Referring Physician Cardiology 09/09/19 Daija Smart DO [address] [facility] [address] [place], [place] [address] Highballer Obstetrics and Gynecology 09/04/23 Michelle Sherman NP [address] [place] [address] Nurse Practitioner Obstetrics and Gynecology 12/22/23 Gin Syed MD [address] [facility] [address] [place] [address] Resident Internal Medicine 05/29/24 05/30/24 Kavya Hall RN [address] [facility] [address] [place], [place] [id number] SHOP Outpatient Sed Special Education Teacher 06/03/24 06/28/24 Amelia Garner NP [address] [address] Nurse Practitioner Obstetrics and Gynecology 06/27/24 Kavitha Hurst NP [address] [address] Nurse Practitioner Obstetrics and Gynecology 11/29/24 documented as of this encounter
--- OUTSIDE RECORDS SUMMARY | 2025-04-15 07:01 | XMS_ITS | Encounter Summary ---
Author Organization [facility] Address [address] [place] [address] Phone Care Team Providers Care Control Clerk Auditing Name Role Phone Jaime Givens DO Primary Care Provider + [phone] Thad Arredondo MD Unavailable [phone] Michi De La Paz MD PhD Unavailable [phone] Bebeto Murillo MD Unavailable [phone] Daija Smart DO Unavailable [phone] APPRENTICE ARCHITECT Unavailable [phone] Gin Syed MD Unavailable [phone] Kavya Hall RN Unavailable [phone] Amelia Garner NP Unavailable [phone] Kavitha Hurst NP Unavailable [phone] Encounter Details Date Type Department Care Team [...] on file Legal Sex Female 1:11 AM DEPUTY CHIEF EXECUTIVE Gender Identity Not on file Sexual [...] on filedocumented in this encounter Care Teams Control Clerk Auditing Relationship Specialty Start Date End Date Jaime Givens DO PCP - General 10/13/16 Thad Arredondo MD Consulting Physician Cardiology 05/14/18 Michi De La Paz MD PhD Referring Physician Cardiology 05/14/18 Bebeto Murillo MD Referring Physician Cardiology 09/09/19 Daija Smart DO [address] [facility] [address] [place], [place] [id number] Benzene Washer Operator Obstetrics and Gynecology 09/04/23 Michelle Sherman NP [address] [facility] [place] [address] Nurse Practitioner Obstetrics and Gynecology 12/22/23 Gin Syed MD [address] [address] Resident Internal Medicine 05/29/24 05/30/24 Kavya Hall, RN [address] [facility] [address] [place] [address] SHOP Outpatient Care Assistant 06/03/24 06/28/24 Amelia Garner NP [address] [facility] [place] [address] Nurse Practitioner Obstetrics and Gynecology 06/27/24 Kavitha Hurst NP [address] [facility] [place] [address] Nurse Practitioner Obstetrics and Gynecology 11/29/24 documented as of this encounter
[2025-04-15 07:45] LABS: Hematocrit 34.9 % (37.0-47.0); Hemoglobin 10.8 g/dL (12.0-15.0); Immature Granulocyte Percent A 0.7 % (0-0.5); Lymphocytes Absolute Auto 0.80 K/mm3 (0.9-3.2); Mean Corpuscular HGB Conc 30.9 g/dl (32-36); Mean Corpuscular Hemoglobin 29.8 pg (26-34); Mean Corpuscular Volume 96.4 fl (80-100); Nucleated Red Blood Cells Absolute Auto 0.000 K/mm3 (0.0-0.012); Nucleated Red Blood Cells Perc 0.0 % (0.0-0.2); Platelet Count Result 172 k/mm3 (150-375); Red Blood Count 3.62 M/mm3 (4.2-5.4); White Blood Count 5.8 K/mm3 (4.5-10.0)
[2025-04-15 08:06] LABS: Alanine Aminotransferase 14 U/L (6-35); Albumin Level 4.1 g/dL (3.5-5.1); Alkaline Phosphatase 70 U/L (38-126); Anion Gap 10 mmol/L (4-12); Aspartate Amino Transferase 25 U/L (14-36); Bilirubin,Total 1.9 mg/dL (0.2-1.3); Blood Urea Nitrogen 29 mg/dL (7-17); Calcium 10.0 mg/dL (8.4-10.2); Carbon Dioxide 23 mmol/L (22-30); Chloride 104 mmol/L (98-107); Estimated Glomerular Filt Rate 47; Glucose 70 mg/dL (65-110); Potassium 4.5 mmol/L (3.4-5.0); Sodium 137 mmol/L (137-145); Total Protein 7.7 g/dL (6.3-8.2)
[2025-04-15 08:22] LABS: Free T4 Free Thyroxine 1.37 ng/dL (0.78-2.19)
[2025-04-15 08:40] LABS: Hemoglobin A1C 5.4 % (<5.7)
[2025-04-15 09:29] LABS: Free T3 3.75 pg/mL (2.45-5.93)
== END 2025-04-15 06:58 | disposition home or self-care (01) ==
PROVIDERS: PCP Internal Medicine; Visit Provider Internal Medicine
DX: E11.9 Type 2 diabetes mellitus without complications (principal); I50.9 Heart failure, unspecified; R63.4 Abnormal weight loss; E80.6 Other disorders of bilirubin metabolism; Z79.4 Long term (current) use of insulin; I11.0 Hypertensive heart disease with heart failure
CPT/HCPCS: 36415; 80053; 83036; 84439; 84481; 85025

== ENCOUNTER 2025-05-08 08:19 | Outpatient (CLI) | payer MEDICARE, SELFPAY ==
--- NOTE | ~2025-05-08 | CT_ITS ---
EXAMINATION: CT chest abdomen pelvis w con DATE: 05/08/2025 08:57 INDICATION: Localized enlarged lymph nodes. TECHNIQUE: Computed tomography (CT) of the chest, abdomen, and pelvis was performed with 100 mL Omnipaque 350 intravenous contrast. Automated exposure control and iterative reconstruction technique were employed. The dose-length product was 1849.89 mGy-cm. COMPARISON: CT 04/11/2025, 03/27/2024 FINDINGS: CHEST CT: The lungs demonstrate septal thickening and groundglass opacities, consistent with mild pulmonary edema. There is a moderate-sized right pleural effusion with pleural thickening. There is peripheral rounded atelectasis in right middle lobe and right lower lobe. Cardiomegaly is noted. There are coronary artery calcifications. No pericardial effusion. There is mild mediastinal lymphadenopathy. Median sternotomy wires are noted. There is moderate thoracic spondylosis. There is mild chronic anterior wedging of multiple vertebral bodies. ABDOMEN/PELVIS CT: The liver demonstrates surface nodularity. There are gallstones in the gallbladder, which is normal in size. The spleen, pancreas, and adrenal glands are normal. There is cortical thinning of the kidneys. There is an umbilical hernia containing fat. There is an intrauterine device in expected position. There is diverticulosis of the colon without evidence of diverticulitis. There are no dilated loops of bowel. The appendix is not visualized. There are no pathologically enlarged lymph nodes. There is no free intraperitoneal fluid. There is severe lumbar spondylosis. IMPRESSION: 1. Chronic mild mediastinal lymphadenopathy, likely reactive. 2. Mild pulmonary edema. 3. Chronic moderate-sized right pleural effusion. 4. Liver surface nodularity suspicious for cirrhosis. Reviewed, dictated and finalized at location E.
--- OUTSIDE RECORDS SUMMARY | 2025-05-08 08:35 | XMS_ITS | Clinical Summary ---
Author Organization [facility] Address [address] [place] [address] Phone Care Team Providers Care Entry Level Civil Engineer Name Role Phone Jaime Givens DO Primary [...] DO Referring Provider: Al Leonardo MD [address] [place] [address] Other: Problem Noted Date Diagnosed Date Encounter [...] on file Legal Sex Female 3:21 AM ULTRASONOGRAPHER Gender Identity Not on file Sexual Orientation Not on file Occupation Industry Job Start Date Job End Date Not on file Not on file Not on file Not on file Last Filed Vital Signs Vital Sign Reading Time Taken Comments Blood Pressure 128/67 06/21/2018 11:27 AM CDT Pulse 67 07/04/2015 12:44 PM ULTRASONOGRAPHER Temperature - - Respiratory Rate 20 06/24/2012 [...] Most Recently Relevant to Health Maintenance Insurance [facility] BLUE PREFERRED Care Teams Entry Level Civil Engineer Relationship Specialty Start Date End Date Jaime Givesn DO [address] [address] PCP - General Internal Medicine 06/14/18
--- OUTSIDE RECORDS SUMMARY | 2025-05-08 08:35 | XMS_ITS | Encounter Summary ---
Author Organization [facility] Address [address] [place] [address] Care Team Providers Care Engine Assembly Supervisor Name Role Phone Jaime Givens DO Primary Care Provider Encounter Details Date Type Department Care Team (Late st Contact Info) Description 11/06/2017 Lab Requisition [facility] Laboratory Services S [facility] [address] [facility] [address] [place] [address] Last Velásquez MD [address] [place] [address] Essential (primary) hypertension Social History Tobacco Use Types Packs/Day Years Used Date Smoking Tobacco: Former Cigarettes Q uit: 08/31/1986 Smokeless Tobacco: Former Alcohol Use Standard Drinks/Week Comments No 0 (1 standard drink = 0.6 oz pur e alcohol) Comments No Sex and Gender Information Value Date Recorded Sex Assigned at Not on file Legal Sex Female 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 Gender Identity Not on file Sexual Orientation Not on file Occupation Industry Job Start Date Job End Date Not on file Not on file Not on file Not on file documented as of this encounter Plan of Treatment Not on file documented as of this encounter Visit Diagnoses Diagnosis Essential (primary) hypertension Unspecified essential hypertension documented in this encounter Care Teams Engine Assembly Supervisor Relationship Specialty Start Date End Date Jaime Givens DO [address] [facility] [address] [place] [address] PCP - General Internal Medicine 06/14/18 documented as of this encounter
--- OUTSIDE RECORDS SUMMARY | 2025-05-08 08:35 | XMS_ITS | Clinical Summary ---
Author Organization [facility] Address [address] [place] [address] Care Team Providers Care Cma Or Lpn Name Role Phone Jaime Givens DO Primary Care Provider [phone] Thad Arredondo MD Unavailable Michi De La Paz MD PhD Unavailable [phone] Bebeto Murillo MD Unavailable [phone] Daija Smart DO Unavailable [phone] Michelle Sherman PRESS BOX CUSTODIAN Unavailable [phone] Amelia Garner NP Unavailable [phone] Kavitha Hurst NP Unavailable [phone] Allergies Active Allergy Reactions Criticality Noted Date [...] total) by mouth daily 30 tablet 11 025 Active aspirin 325 mg tablet Take 325 mg by mouth daily 2020 Discontinued amLODIPine (NORVASC) 5 mg tablet TAKE 1 TABLET BY MOUTH DAILY 90 tablet 3 024 2024 Discontinued Active Problems Problem Noted Date Diagnosed [...] in CEIOL. Her retina provider Dr. Colunga ([facility]) plans to perform PRP OS prior to [...] eye. Assessment & Plan (07/23/2020 3:53 PM SEWING MACHINE MECHANIC): Becoming visually significant OS. Hepatic steatosis 01/26/2020 [...] Uses CPAP at home - cont here [facility] Body mass index 40+ - severely obese [...] well so needs to be transferred to [facility] for cardiology. Given progressive SOB and decreasing Hgb, felt unsafe to d/c - PPI BID - trend CBC - give IV dextran x1 - cont PO iron - aT&S; transfuse <7 - on transfer list to 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 I have asked her to return to see us roughly 4-6 weeks for re-evaluation. Encounters Date Type Department Care Team Description 04/10/2025 3:30 PM CDT Office Visit [facility] Cardiology [address] [place] [address] 8th [place] [address] [place] [address] Michi De La Paz MD PhD Atrial fibrillation, unspecified type (HCC) (Primary Dx); Essential hypertension; Chronic diastolic heart failure (HCC); Hypertension, essential 04/10/2025 Results Follow-Up [facility] Cardiology [facility] 8th [place] [address] [place] [address] Michi De La Paz MD PhD ECG 12 lead 03/06/2025 1:45 PM CDT Office Visit [facility] Ophthalmology [address] 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 No 06/03/2024 Social Connection and Isolation Panel Answer Date Recorded In a typical week, how many times do you talk on the phone with family, friends, or neighbors? More than three times a week 06/03/2024 How often do you get togethe r with friends or relatives? Twice a week 06/03/2024 How often do you attend [facility] or holiness services? 1 to 4 times per year 06/03/2024 Do you belong to any clubs o r organizations such as lutheran groups, unions, fraternal or athletic groups, or [...] any time in the past 12 m [facility], were you homeless or living in a group home (including now)? No 06/03/2024 Personal Safety Answer Date Recorded Have you ever been in or are you currently in a harmful physical or emotional relationship or is someone making you feel afraid or unsafe? 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 Gender Identity Not on file Sexual [...] 12/31/2021, 10/09/2020, Additional history exists Covid-19 Vaccine (2023-2 5 season) 2024 11/20/2020, 10/10/2020 Hemoglobin A1C [...] PM CDT Atrial fibrillation, unspecified type (HCC) BASIC METABOLIC PANEL Routine 12/19/2024 4:20 PM [...] CREATININE RATIO, URINE Routine 10/11/2019 11:56 AM SEWING MACHINE MECHANIC from Last 3 Months or Most Recently Relevant to Health Maintenance Results * ECG 12 lead (04/10/2025 3:53 PM CDT) us Michi De La Paz MD PhD ECG ORDERABLES Edited Result - Final * (ABNORMAL) Basic metabolic panel (12/19/2024 4:20 [...] Female Attending MD: Darleen May M.D. Room: [facility] ENDOSCOPY Note Status: Finalized Procedure: Colonoscopy [...] The scope was passed under direct vision.The [id number] endoscope was introduced through the anus [...] clip was successfully placed (MR conditional). 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 There was no bleeding at the end of the procedure. The exam was otherwise without abnormality on direct and retroflexion views. Impression: - Hemorrhoids found on perianal exam. - Three 4 to 10 mm polyps in the transverse colonand in the ascending colon, removed with a cold snare. Resected and retrieved. Clip (MR conditional) was placed. 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 - The examination was otherwise normal on [...] and children were not included. (Diabetes Care 31:7229-0539, 2008). The eAG is not equivalent to a fasting glucose. Blood 05/26/2024 1:24 PM CDT 05/26/2024 1:25 PM CDT us Anabelle Mckeon MD LAB BLOOD ORDERABLES Final R esult [id number] [id number] [facility] [place] [address] * Screening Mammogram Bilateral W Jose (04/03/2023 2:45 PM CDT) Anatomical Region Laterality Modality Breast Bilateral Mammography Narrative 04/05/2023 9:52 AM CDT Mammogram Technique: Bilateral Digital Breast Tomosynthesis, Bilateral C-view 2D Screening mammogram. Views obtained: bilateral craniocaudal and bilateral mediolateral oblique. Computer Aided Detection was performed. Mammogram Findings: The present examination has been compared to prior imaging studies performed at [facility] [place] [facility] on 12/31/2021, at [facility] on 10/09/2020, and at [place], [place] on 06/21/2018. There are scattered areas [...] compared to prior imaging studies performed at [facility] [place] [facility] on 12/31/2021, at [facility] on 10/09/2020, and at [place], [place] on 06/21/2018. There are scattered areas of fibroglandular density. There is no suspicious abnormality in either breast. Impression: There is no mammographic evidence of malignancy. Annual screening mammography is recommended. OVERALL FINAL ASSESSMENT: BI-RADS CATEGORY 1: Negative. Faiza Alberto NP IMG MAMMO PROCEDURES Fin al Result * (ABNORMAL) Lipid panel (01/15/2020 11:33 PM CDT) Cholesterol 129 30 - 199 mg/dL [facility] Comment: Interpretive Data Ages < or [...] revised on 2018. Triglycerides 108 <=149 mg/dL [facility] Comment: Interpretive Data Ages < [...] revised on 2018. HDL 29(L) >=40 mg/dL [facility] Comment: Interpretive Data Ages < [...] on 2018. LDL, calculated 78 <=129 mg/dL [facility] Comment: Interpretive Data Ages < [...] revised on 2018. Non-HDL Cholesterol 100 mg/dL [facility] Comment: Interpretive Data Ages < [...] last revised on 2018. Chol/HDL ratio 4 [facility] Blood specimen (specimen) 01/15/2020 11:33 PM CDT 01/15/2020 11:47 PM CDT us Carroll Osei MD LAB BLOOD ORDERABLES Fi nal Result [facility] Department [place] [address] * (ABNORMAL) Albumin Creatinine Ratio, Urine (10/11/2019 11:56 AM SEWING MACHINE MECHANIC) Creatinine, ur 150 20 - 275 mg/dL [facility] Microalbumin, ur 66.0 See Note: mg/dL [facility] Comment: Reference Range: Reference Range Not established Verified by repeat analysis. Microalbumin/creat ratio 440(H) <30 mcg/mg creat [facility] Comment: The ADA defines abnormalities in albumin excretion as follows: Category Result (mcg/mg creatinine) Normal <30 Microalbuminuria 30-299 Clinical albuminuria > OR = 300 The ADA recommends that at least two of three specimens collected within a 3-6 month period be abnormal before considering a patient to be within a diagnostic category. 10/11/2019 11:5 6 AM SEWING MACHINE MECHANIC 10/11/2019 12:02 PM SEWING MACHINE MECHANIC Narrative [facility] - 10/12/2019 6:06 PM SEWING MACHINE MECHANIC FASTING:YES FASTING: YES Resulting Agency Comment Performing Organization Information: Site ID: [id number] Name: Christian Vallejo Address: [address] [place] [address] Director: Al Sosa D.O., MPH us Gin Arenas PRESS BOX CUSTODIAN LAB URINE ORDERABLES Final Res ult Performing Organization Address City/State/[facility] Co de Phone Number [facility] Andrade from Last 3 Months or Most Recently Relevant to Health Maintenance Insurance [facility] CHO[employer] CHO[place] ACCESS MEDICARE [facility] Address: [address] [address] [place] [address] [facility] CHOICE [place] CHOICE [place] [facility] CHOICE PLUS MEDICARE [facility] Address: [address] [address] [place] [address] [facility] MEDICARE [facility] MEDICARE [facility] MEDICARE [facility] Advance Directives For more information, please contact: [phone] Documents on File Type Date Recorded Patient Caterer Helper Expl anation ADVANCE DIRECTIVE 10/23/2017 10:45 PM [...] 9:11 AM 01/19/2020 8:03 PM Care Teams Cma Or Lpn Relationship Specialty Start Date End Date Jaime Givens DO PCP - General 10/13/16 Thad Arredondo MD Consulting Physician Cardiology 05/14/18 Michi De La Paz MD PhD Referring Physician Cardiology 05/14/18 Bebeto Murillo MD Referring Physician Cardiology 09/09/19 Daija Smart DO [address] [place], [place] [id number] Photoengraving Finisher Obstetrics and Gynecology 09/04/23 Michelle Sherman NP [address] [place], [place] [id number] Nurse Practitioner Obstetrics and Gynecology 12/22/23 Amelia Garner NP [address] [place] [address] Nurse Practitioner Obstetrics and Gynecology 06/27/24 Kavitha Hurst NP [address] [place] [address] Nurse Practitioner Obstetrics and Gynecology 11/29/24
--- OUTSIDE RECORDS SUMMARY | 2025-05-08 08:35 | XMS_ITS | Patient Health Record ---
Author Organization [facility] Address [address] [facility]. [address] [place] [address] Care Team Providers Care Corn Detasseler Machine Operator Name Role Phone Jaime Givens [...] Problem Family history of polyp of colon (067614180) Family history of colonic polyps (Z83.71) Active confirmed She has a family history of colon polyps in her mother. Her last colonoscopy in July 2019 was normal and she was advised to follow-up in 5 years. Problem 86251862 Diarrhea (R19.7) Active confirmed She has been [...] disease, pancreatic insufficiency, IBS, or others. 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 Problem 70855944 Fatty stool (K90.9) Active confirmed Recently, she has noticed that her stools appear to be more fatty and have been floating on top of the water. They are also vaughn in color. We'll have her submit stool tests for fecal fat and pancreatic elastase. Plan Of Treatment Pending Test Test Name Order Date PANCREATIC [id number] 07/23/2021 FECAL FAT, QUALITATIVE 07/23/2021 LACTOFERRIN, QN, STOOL 07/23/2021 Initiate SIBO 07/23/2021 Insurance Providers Payer Name Payer Address Payer Phone Subscriber Number Group Number Insured Name Patient Relationship to Insured Coverage Start Date Coverage End Date Medicare E2 [address] [address] [place] [address] [id number] Miley Glez Self - patient is the insured AARP Medicare Advantage Choice PPO [address] [address] [place] [address] [phone] [id number] Miley Glez Self - patient is the insured Medical (General) History Medical History History ICD Code Diverticulosis Diabetes Hypertension Sleep Apnea/CPAP Atrial Fibrillation Surgical History Surgery Date(Month/Year) Colonoscopy (Dr. 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
--- OUTSIDE RECORDS SUMMARY | 2025-05-08 08:35 | XMS_ITS | Encounter Summary ---
Author Organization [facility] Address [address] [place] [address] Phone Care Team Providers Care Public Safety Police Name Role Phone Jaime Givens DO Primary Care Provider + [phone] Thad Arredondo MD Unavailable +[phone] Michi De La Paz MD PhD Unavailable +[phone] Bebeto Murillo MD Unavailable [phone] Daija Smart DO Unavailable [phone] Michelle Sherman EXPORT SPECIALIST Unavailable [phone] Gin Syed MD Unavailable +[phone] Kavya Hall RN Unavailable [phone] Amelia Garner NP Unavailable [phone] Kavitha Hurst NP Unavailable [phone] Encounter Details Date Type Department Care Team [...] on file 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 Gender Identity Not on file Sexual [...] on filedocumented in this encounter Care Teams Public Safety Police Relationship Specialty Start Date End Date Jaime Givens DO PCP - General 10/13/16 Thad Arredondo MD Consulting Physician Cardiology 05/14/18 Michi De La Paz MD PhD Referring Physician Cardiology 05/14/18 Bebeto Murillo MD Referring Physician Cardiology 09/09/19 Daija Smart DO [address] [place] [id number] Spinning Mule Operator Obstetrics and Gynecology 09/04/23 Michelle Sherman NP [address] [place] [id number] Nurse Practitioner Obstetrics and Gynecology 12/22/23 Gin Syed MD 4901 [facility] [address] [place], [place] [id number] Resident Internal Medicine 05/29/24 05/30/24 Kavya Hall, RN 4590 [facility] [address] [place], [place] [id number] SHOP Outpatient Rn Radiation 06/03/24 06/28/24 Ameila Garner NP [address] [place] [address] Nurse Practitioner Obstetrics and Gynecology 06/27/24 Kavitha Hurst NP [address] [place] [address] Nurse Practitioner Obstetrics and Gynecology 11/29/24 documented as of this encounter
--- OUTSIDE RECORDS SUMMARY | 2025-05-08 08:35 | XMS_ITS | Encounter Summary ---
Author Organization [facility] Address [address] [place] [address] Care Team Providers Care Residential Program Worker Name Role Phone Jaime Givens DO Primary Care Provider + [phone] Thad Arredondo MD Unavailable +[phone] Michi De La Paz MD PhD Unavailable [phone] Bebeto Murillo MD Unavailable [phone] Daija Smart DO Unavailable [phone] Michelle Sherman POLITICAL WORKER Unavailable +[phone] Gin Syed MD Unavailable [phone] Kavya Hall RN Unavailable [phone] Amelia Garner NP Unavailable [phone] Kavitha Hurst NP Unavailable [phone] Encounter Details Date Type Department Care Team (Late st Contact Info) Description 10/08/[address] [place] [address] Susan Leach, RT Social History Tobacco Use Types Packs/Day Years Used Date Smoking Tobacco: Former Smokeless Tobacco: Never Comments:quit 1986 Alcohol Use Standard Drinks/Week Comments No 0 (1 standard drink = 0.6 oz pur e alcohol) Comments No Sex and Gender Information Value Date Recorded Sex Assigned at Not on file 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 Gender Identity Not on file Sexual Orientation Not on file Occupation Industry Job Start Date Job End Date Retired Not on file Not on file Not on file documented as of this encounter Plan of Treatment Not on file documented as of this encounter Visit Diagnoses Not on filedocumented in this encounter Care Teams Residential Program Worker Relationship Specialty Start Date End Date Jaime Givens DO PCP - General 10/13/16 Thad Arredondo MD Consulting Physician Cardiology 05/14/18 Michi De La Paz MD PhD Referring Physician Cardiology 05/14/18 Bebeto Muirllo MD Referring Physician Cardiology 09/09/19 Daija Smart DO [address] [facility] EXECUT[address] [place], [place] [id number] Stone Hand Obstetrics and Gynecology 09/04/23 Michelle Sherman NP [address] [place] [address] Nurse Practitioner Obstetrics and Gynecology 12/22/23 Gin Syed MD 49[address] [facility] [address] [place] [address] Resident Internal Medicine 05/29/24 05/30/24 Kavya Hall RN 4590 [facility] [address] [place], [place] [id number] SHOP Outpatient Tube Rebuilder 06/03/24 06/28/24 Amelia Garner NP [address] [place] [address] Nurse Practitioner Obstetrics and Gynecology 06/27/24 Kavitha Hurst NP [address] [place] [address] Nurse Practitioner Obstetrics and Gynecology 11/29/24 documented as of this encounter
--- OUTSIDE RECORDS SUMMARY | 2025-05-08 08:35 | XMS_ITS | Encounter Summary ---
Author Organization [facility] Address [address] [place] [address] Phone Care Team Providers Care Music Executive Name Role Phone Jaime Givens DO Primary Care Provider + [phone] Thad Arredondo MD Unavailable +[phone] Michi De La Paz MD PhD Unavailable [phone] Bebeto Murillo MD Unavailable [phone] Daija Smart DO Unavailable [phone] Michelle Sherman CORSETIER Unavailable [phone] Gin Syed MD Unavailable [phone] Kavya Hall RN Unavailable [phone] Amelia Garner NP Unavailable [phone] Kavitha Hurst NP Unavailable [phone] Encounter Details Date Type Department Care Team [...] on file 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 Gender Identity Not on file Sexual Orientation [...] on filedocumented in this encounter Care Teams Music Executive Relationship Specialty Start Date End Date Jaime Givens DO PCP - General 10/13/16 Thad Arredondo MD Consulting Physician Cardiology 05/14/18 Michi De La Paz MD PhD Referring Physician Cardiology 05/14/18 Bebeto Murillo MD Referring Physician Cardiology 09/09/19 Daija Smart DO [address] [place], [place] [id number] Care Companion Obstetrics and Gynecology 09/04/23 Michelle Sherman NP [address] [place] [address] Nurse Practitioner Obstetrics and Gynecology 12/22/23 Gin Syed MD [address] [address] Resident Internal Medicine 05/29/24 05/30/24 Kavya Hall, RN 4590 [facility] [address] [place] [address] SHOP Outpatient Mucker [place] 06/03/24 06/28/24 Amelia Garner NP [address] [place] [address] Nurse Practitioner Obstetrics and Gynecology 06/27/24 Kavitha Hurst NP [address] [place] [address] Nurse Practitioner Obstetrics and Gynecology 11/29/24 documented as of this encounter
--- OUTSIDE RECORDS SUMMARY | 2025-05-08 08:35 | XMS_ITS | Encounter Summary ---
Author Organization [facility] Address [address] [place] [address] Phone Care Team Providers Care Animation Director Name Role Phone Jaime Givens DO Primary Care Provider + [phone] Thad Arredondo MD Unavailable +[phone] Michi De La Paz MD PhD Unavailable [phone] Bebeto Murillo MD Unavailable [phone] Daija Smart DO Unavailable [phone] Michelle Sherman ORTHOTIC TECHNICIAN Unavailable [phone] Amelia Garner NP Unavailable [phone] Kavitha Hurst ORTHOTIC TECHNICIAN Unavailable [phone] Encounter Details Date Type Department Care Team (Late st Contact Info) Description 04/10/2025 Results Follow-Up [facility] Medicine Cardiology [address] [facility] Advanced Medicine 8th [place] [address] [place] [address] Michi De La Paz MD PhD 49[address] [facility] [address] [place], [place] [id number] ECG 12 lead Social History Tobacco Use Types Packs/Day Years Used Date Smoking Tobacco: Former Smokeless Tobacco: Never Comments:quit 1986 Alcohol Use Standard Drinks/Week Comments No 0 (1 standard drink = 0.6 oz pur e alcohol) [facility] Utilities Answer Date Recorded In the [...] often do you attend chur ch or adventist services? 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 Gender Identity Not on file Sexual Orientation Not on file Occupation Industry Job Start Date Job End Date Retired Not on file Not on file Not on file documented as of this encounter Plan of Treatment Not on file documented as of this encounter Visit Diagnoses Not on filedocumented in this encounter Care Teams Animation Director Relationship Specialty Start Date End Date Jaime Givens DO PCP - General 10/13/16 Thad Arredondo MD Consulting Physician Cardiology 05/14/18 Michi De La Paz MD PhD Referring Physician Cardiology 05/14/18 Bebeto Murillo MD Referring Physician Cardiology 09/09/19 Daija Smart DO [address] [place] [address] Gm Obstetrics and Gynecology 09/04/23 Michelle Sherman NP [address] [place] [address] Nurse Practitioner Obstetrics and Gynecology 12/22/23 Amelia Garner NP [address] [place] [address] Nurse Practitioner Obstetrics and Gynecology 06/27/24 Kavitha Hurst NP [address] [facility] [place] [address] Nurse Practitioner Obstetrics and Gynecology 11/29/24 documented as of this encounter
--- OUTSIDE RECORDS SUMMARY | 2025-05-08 08:35 | XMS_ITS | Encounter Summary ---
Author Organization [facility] Address [address] [place] [address] Care Team Providers Care Gas Well Pumper Name Role Phone Jaime Givens Primary Care Provider Encounter Details Date Type Department Care Team (Late st Contact Info) Description 11/03/2017 Lab Requisition [facility] [address] [place] [address] [place] [address] Last Velásquez MD [address] [place] [address] Encounter for general adult medical [...] on file Legal Sex Female 3:21 AM AG EQUIPMENT FIELD SERVICE TECHNICIAN Gender Identity Not on file Sexual [...] BNP OR PROBNP Routine 11/03/2017 6:36 AM AG EQUIPMENT FIELD SERVICE TECHNICIAN Encounter for general adult medical examination without abnormal findings BASIC METABOLIC PANEL Routine 11/03/2017 6:36 AM AG EQUIPMENT FIELD SERVICE TECHNICIAN Encounter for general adult medical examination without abnormal findings documented in this encounter Results * (ABNORMAL) BASIC METABOLIC PANEL (11/03/2017 6:36 AM AG EQUIPMENT FIELD SERVICE TECHNICIAN) SODIUM 141 136 - 145 mmol/L 11/03/2017 10:39 AM [facility] POTASSIUM 3.9 3.5 - 5.0 mmol/L 11/03/2017 10:39 AM [facility] - [facility] CHLORIDE 102 98 - 107 mmol/L 11/03/2017 10:39 AM [facility] CO2 25 22 - 29 mmol/L 11/03/2017 10:39 AM AG EQUIPMENT FIELD SERVICE TECHNICIAN [facility] CALCIUM 9.2 8.6 - 10.2 mg/dL 11/03/2017 10:39 AM [facility] BUN 19 8 - 23 mg/dL 11/03/2017 10:39 AM [facility] - [facility] CREATININE 0.92 0.51 - 0.95 mg/dL 11/03/2017 10:39 AM [facility] LABORATORY [facility] - . [facility] GLUCOSE 134(H) 74 - 99 mg/dL 11/03/2017 10:39 AM AG EQUIPMENT FIELD SERVICE TECHNICIAN [facility] GFR >60 >=60 mL/min/1.7 3 sq meter 11/03/2017 10:39 AM AG EQUIPMENT FIELD SERVICE TECHNICIAN [facility] Comment: eGFR has not been validated for [...] mL/min/1.7 3 sq meter 11/03/2017 10:39 AM [facility] - [facility] ANION GAP 14 8 - 16 mmol/L 11/03/2017 10:39 AM [facility] Blood Venipuncture / Unknown 11/03/2017 6:36 AM AG EQUIPMENT FIELD SERVICE TECHNICIAN 11/03/2017 9:14 AM AG EQUIPMENT FIELD SERVICE TECHNICIAN Last Velásquez MD CHEMISTRY ORDERABLES Final R esult [facility]# [id number] [address] [place] [address] * (ABNORMAL) BRAIN NATRIURETIC PEPTIDE, BNP OR PROBNP (11/03/2017 6:36 AM AG EQUIPMENT FIELD SERVICE TECHNICIAN) PROBNP, N TERMINAL 349(H) <124 pg/mL 11/03/2017 10:39 AM AG EQUIPMENT FIELD SERVICE TECHNICIAN [facility] [employer] [facility] Comment: Reference values for screening purposes based on dip stand loader's recommendation: Patients less than 75 years: <125 [...] Blood Venipuncture / Unknown 11/03/2017 6:36 AM AG EQUIPMENT FIELD SERVICE TECHNICIAN 11/03/2017 9:14 AM AG EQUIPMENT FIELD SERVICE TECHNICIAN Last Velásquez MD CHEMISTRY ORDERABLES Final R esult Performing Organization Address City/[facility]/ZIP Co de Phone Number [facility]# [id number] [address] [place] [address] documented in this encounter Visit Diagnoses Diagnosis Encounter for general adult medical examination without abnormal findings Routine general medical examination at a health care facility documented in this encounter Care Teams Gas Well Pumper Relationship Specialty Start Date End Date Jaime Givens DO [address] [facility] [address] [place] [address] PCP - General Internal Medicine 06/14/18 documented as of this encounter
--- OUTSIDE RECORDS SUMMARY | 2025-05-08 08:35 | XMS_ITS | Encounter Summary ---
Author Organization [facility] Address [address] [place] [address] Phone Care Team Providers Care Embedded Software Test Engineer Name Role Phone Jaime Givens DO Primary Care Provider + [phone] Thad Arredondo MD Unavailable +[phone] Michi De La Paz MD PhD Unavailable [phone] Bebeto Murillo MD Unavailable [phone] Daija Smart DO Unavailable [phone] Michelle Sherman DEVELOPMENT ASSISTANT Unavailable [phone] Amelia Garner NP Unavailable [phone] Kavitha Hurst NP Unavailable [phone] Encounter Details Date Type Department Care Team (Late st Contact Info) Description 06/30/2024 Telephone [facility] Medicine Surgery [address] [facility] 8 [place] [address] Yulisa Arce NP [address] [place] [address] Social History Tobacco Use Types [...] often do you attend chur ch or denominational services? 1 to 4 times per year [...] time in the past 12 m [facility], were you homeless or living in a usp (including now)? No 06/03/2024 Personal Safety Answer Date Recorded Have you ever been in or are you currently in a harmful physical or emotional relationship or is someone making you feel afraid or unsafe? Denies 05/31/2024 Comments No Sex and Gender Information Value Date Recorded Sex Assigned at Not on file Legal Sex Female 1:11 AM ROD POINTER Gender Identity Not on file Sexual Orientation Not on file Occupation Industry Job Start Date Job End Date Retired Not on file Not on file Not on file documented as of this encounter Plan of Treatment Not on file documented as of this encounter Visit Diagnoses Not on filedocumented in this encounter Care Teams Embedded Software Test Engineer Relationship Specialty Start Date End Date Jaime Givens DO PCP - General 10/13/16 Thad Arredondo MD Consulting Physician Cardiology 05/14/18 Michi De La Paz MD PhD Referring Physician Cardiology 05/14/18 Bebeto Murillo MD Referring Physician Cardiology 09/09/19 Daija Smart DO [address] [place] [address] Juvenile Probation Officer Obstetrics and Gynecology 09/04/23 Michelle Sherman NP [address] [place] [address] Nurse Practitioner Obstetrics and Gynecology 12/22/23 Amelia Garner NP [address] [place] [address] Nurse Practitioner Obstetrics and Gynecology 06/27/24 Kavitha Hurst NP [address] [place] [address] Nurse Practitioner Obstetrics and Gynecology 11/29/24 documented as of this encounter
--- OUTSIDE RECORDS SUMMARY | 2025-05-08 08:35 | XMS_ITS | Encounter Summary ---
Author Organization [facility] Address [address] [place] [address] Care Team Providers Care Cardroom Hand Name Role Phone Jaime Givens DO Primary Care Provider Encounter Details Date Type Department Care Team (Late st Contact Info) Description 10/21/2017 Lab Requisition [facility] [address] [place] [address] [place] [address] Last Velásquez MD [address] [place] [address] Encounter for general adult medical [...] on file Legal Sex Female 3:21 AM MORTGAGE LOAN INTERVIEWER Gender Identity Not on file Sexual Orientation Not on file Occupation Industry Job Start Date Job End Date Not on file Not on file Not on file Not on file documented as of this encounter Plan of Treatment Not on file documented as of this encounter Procedures Procedure Name Priority Date/Time Associated Diagnosis Comments CBC WITH DIFFERENTIAL Routine 10/21/2017 6:42 AM MORTGAGE LOAN INTERVIEWER Encounter for general adult medical examination without abnormal findings COMPREHENSIVE METABOLIC PANEL Routine 10/21/2017 6:42 AM MORTGAGE LOAN INTERVIEWER Encounter for general adult medical examination without abnormal findings documented in this encounter Results * (ABNORMAL) COMPREHENSIVE METABOLIC PANEL (10/21/2017 6:42 AM MORTGAGE LOAN INTERVIEWER) Pathologist [facility] SODIUM 138 136 - 145 mmol/L 10/21/2017 10:52 AM [facility] [employer] [facility] POTASSIUM 3.9 3.5 - 5.0 mmol/L 10/21/2017 10:52 AM [facility] [employer] [facility] - [facility] CHLORIDE 98 98 - 107 mmol/L 10/21/2017 10:52 AM [facility] [employer] [facility] CO2 28 22 - 29 mmol/L 10/21/2017 10:52 AM [facility] [employer] [facility] - [facility] CALCIUM 9.0 8.6 - 10.2 mg/dL 10/21/2017 10:52 AM [facility] [employer] [facility] BUN 19 8 - 23 mg/dL 10/21/2017 10:52 AM MORTGAGE LOAN INTERVIEWER [facility] CREATININE 0.88 0.51 - 0.95 mg/dL 10/21/2017 10:52 AM [facility] [employer] [facility] GLUCOSE 165(H) 74 - 99 mg/dL 10/21/2017 10:52 AM [facility] [employer] [facility] TOTAL PROTEIN 6.5(L) 6.7 - 8.6 g/dL 10/21/2017 10:52 AM MORTGAGE LOAN INTERVIEWER [employer] [facility] - [facility] ALBUMIN 3.5 3.5 - 5.2 g/dL 10/21/2017 10:52 AM [employer] [facility] BILIRUBIN TOTAL 0.6 0.2 - 1.1 mg/dL 10/21/2017 10:52 AM [facility] [employer] [facility] - [facility] ALKALINE PHOSPHATASE 203(H) 35 - 104 U/L 10/21/2017 10:52 AM [employer] [facility] - [facility] AST 29 <33 U/L 10/21/2017 10:52 AM [employer] [facility] - [facility] ALT 30 <34 U/L 10/21/2017 10:52 AM [facility] - [facility] GFR >60 >=60 mL/min/1.7 3 sq meter 10/21/2017 10:52 AM [facility] Comment: eGFR has not [...] mL/min/1.7 3 sq meter 10/21/2017 10:52 AM [facility] [employer] [facility] ANION GAP 12 8 - 16 mmol/L 10/21/2017 10:52 AM [facility] [employer] [facility] Blood Venipuncture / Unknown 10/21/2017 6:42 AM [facility] 10/21/2017 8:59 AM [facility] [employer] [facility] - 10/21/2017 10:52 AM [facility] Samples containing indocyanine green cause interferences on Total and/or Direct Bilirubin and must not be measured. Last Velásquez MD CHEMISTRY ORDERABLES Final R esult [facility] [employer] [facility]# [id number] [address] [place] [address] * (ABNORMAL) CBC WITH DIFFERENTIAL (10/21/2017 6:42 AM MORTGAGE LOAN INTERVIEWER) [facility] WBC 6.0 4.0 - 9.8 K/uL 10/21/2017 10:21 AM [facility] [employer] [facility] RBC 3.67(L) 3.90 - 4.90 M/uL 10/21/2017 10:21 AM [facility] [employer] [facility] HEMOGLOBIN 10.7(L) 11.8 - 14.8 g/dL 10/21/2017 10:21 AM [facility] [employer] [facility] HEMATOCRIT 35.0(L) 35.5 - 44.0 % 10/21/2017 10:21 AM [facility] [employer] [facility] MCV 95.4 82.0 - 99.0 fL 10/21/2017 10:21 AM [facility] [employer] [facility] MCH 29.2 27.2 - 32.6 pg 10/21/2017 10:21 AM [facility] [facility] MCHC 30.6(L) 31.5 - 35.5 g/dL 10/21/2017 10:21 AM MORTGAGE LOAN INTERVIEWER [employer] [facility] RDW 15.2(H) 11.5 - 14.5 % 10/21/2017 10:21 AM [employer] [facility] RDW-STDEV 52.6(H) 37.1 - 48.7 fL 10/21/2017 10:21 AM [facility] [facility] PLATELETS 292 140 - 350 K/uL 10/21/2017 10:21 AM [employer] MPV 10.6 9.3 - 12.4 fL 10/21/2017 10:21 AM [facility] NEUTROPHILS 60 % 10/21/2017 10:21 AM [facility] LYMPHOCYTES 23 % 10/21/2017 10:21 AM [facility] MONOCYTES 12 % 10/21/2017 10:21 AM [facility] EOSINOPHILS 3 % 10/21/2017 10:21 AM [employer] [facility] BASOPHILS 1 % 10/21/2017 10:21 AM [employer] [facility] - [facility] IMMATURE GRANULOCYTES 1 % 10/21/2017 10:21 AM [facility] Comment:IG (Immature Granulo cyte) count includes Metamyelocytes, Myelocytes, and Promyelocytes NEUTROPHIL ABSOLUTE 3.58 1.90 - 7.00 K/uL 10/21/2017 10:21 AM [facility] LYMPHOCYTE ABSOLUTE 1.38 0.70 - 4.50 K/uL 10/21/2017 10:21 AM [facility] MONOCYTE ABSOLUTE 0.73 0.10 - 1.30 K/uL 10/21/2017 10:21 AM [facility] EOSINOPHIL ABSOLUTE 0.18 0.00 - 0.70 K/uL 10/21/2017 10:21 AM [facility] BASOPHILS ABSOLUTE 0.03 0.00 - 0.20 K/uL 10/21/2017 10:21 AM [facility] [facility] IMMATURE GRANULOCYTES ABSOLUTE 0.06(H) 0.00 - 0.03 K/uL 10/21/2017 10:21 AM MORTGAGE LOAN INTERVIEWER [facility] Blood Venipuncture / Unknown 10/21/2017 6:42 AM MORTGAGE LOAN INTERVIEWER 10/21/2017 8:59 AM MORTGAGE LOAN INTERVIEWER us Last Velásquez MD HEMATOLOGY ORDERABLES Final Result [facility] CLIA# [id number] [address] [facility] [place] [address] documented in this encounter Visit Diagnoses Diagnosis Encounter for general adult medical examination without abnormal findings Routine general medical examination at a health care facility documented in this encounter Care Teams Cardroom Hand Relationship Specialty Start Date End Date Jaime Givens DO [address] [facility] [address] [place] [address] PCP - General Internal Medicine 06/14/18 documented as of this encounter
--- OUTSIDE RECORDS SUMMARY | 2025-05-08 08:35 | XMS_ITS | Encounter Summary ---
Author Organization [facility] Address [address] [place] [address] Care Team Providers Care Enginehouse Brakeman Name Role Phone Jaime Givens DO Primary Care Provider Encounter Details Date Type Department Care Team (Late st Contact Info) Description 09/09/2000 Outpatient Historical [facility] MD Yonny MORAES Carolyn, MD [address] [place] [id number] Social History Tobacco Use Types Packs/Day Years Used Date Smoking Tobacco: Never Assessed Comments Unknown Sex and Gender Information Value Date Recorded Sex Assigned at Not on file Legal Sex Female 3:21 AM CUSTOMER MANAGER Gender Identity Not on file Sexual Orientation Not on file documented as of this encounter Plan of Treatment Not on file documented as of this encounter Visit Diagnoses Not on filedocumented in this encounter Care Teams Enginehouse Brakeman Relationship Specialty Start Date End Date Jaime Givens DO [address] [facility] [address] [place] [address] PCP - General Internal Medicine 06/14/18 documented as of this encounter
[2025-05-08 10:14] LABS: Hematocrit 35.8 % (37.0-47.0); Hemoglobin 10.9 g/dL (12.0-15.0); Immature Granulocyte Percent A 0.8 % (0-0.5); Lymphocytes Absolute Auto 0.58 K/mm3 (0.9-3.2); Mean Corpuscular HGB Conc 30.4 g/dl (32-36); Mean Corpuscular Hemoglobin 30.4 pg (26-34); Mean Corpuscular Volume 100.0 fl (80-100); Nucleated Red Blood Cells Absolute Auto 0.000 K/mm3 (0.0-0.012); Nucleated Red Blood Cells Perc 0.0 % (0.0-0.2); Platelet Count Result 172 k/mm3 (150-375); Red Blood Count 3.58 M/mm3 (4.2-5.4); White Blood Count 5.2 K/mm3 (4.5-10.0)
[2025-05-08 10:25] LABS: Anion Gap 8 mmol/L (4-12); Blood Urea Nitrogen 22 mg/dL (7-17); Calcium 10.0 mg/dL (8.4-10.2); Carbon Dioxide 27 mmol/L (22-30); Chloride 105 mmol/L (98-107); Estimated Glomerular Filt Rate 56; Glucose 72 mg/dL (65-110); Potassium 3.9 mmol/L (3.4-5.0); Sodium 140 mmol/L (137-145)
[2025-05-08 11:02] LABS: Ferritin 34.40 ng/mL (11.1-264)
== END 2025-05-08 08:20 | disposition home or self-care (01) ==
PROVIDERS: PCP Internal Medicine; Visit Provider Internal Medicine
DX: I50.9 Heart failure, unspecified (principal); D50.0 Iron deficiency anemia secondary to blood loss (chronic); R59.0 Localized enlarged lymph nodes; I11.0 Hypertensive heart disease with heart failure; J90 Pleural effusion, not elsewhere classified
CPT/HCPCS: 36415; 71260; 74177; 80048; 82728; 85025; Q9967